=== PATIENT | male | born 1990 | race Caucasian/White ===

== ENCOUNTER 2019-09-23 11:34 | Outpatient (CLI) | payer OTHER, SELFPAY ==
[2019-09-24 13:55] LABS: COVID-19 RT-PCR UVMMC Result Negative (Negative)
== END 2019-09-23 11:54 ==
PROVIDERS: PCP Nurse Practitioner Family; Visit Provider Nurse Practitioner Family
DX: Z11.59 Encounter for screening for other viral diseases (principal)
CPT/HCPCS: U0003

== ENCOUNTER 2019-10-26 09:22 | Outpatient (CLI) | payer OTHER, SELFPAY ==
[2019-10-27 14:54] LABS: COVID-19 RT-PCR Result NEGATIVE (Negative)
== END 2019-10-26 09:42 ==
PROVIDERS: PCP Nurse Practitioner Family; Visit Provider Family Medicine
DX: Z11.59 Encounter for screening for other viral diseases (principal)
CPT/HCPCS: U0003

== ENCOUNTER 2020-03-09 15:02 | Outpatient (REF) | payer OTHER, SELFPAY ==
[2020-03-14 05:18] LABS: Patient Race White; SARS-CoV-2 RNA Undetected (Undetected); SARS-CoV-2 Specimen Source Nasal
== END 2020-03-09 15:22 ==
LOC: NCHCN 15:02
PROVIDERS: PCP Nurse Practitioner Family; Visit Provider Nurse Practitioner Family
DX: Z20.828 Contact with and (suspected) exposure to other viral communicable diseases (principal)
CPT/HCPCS: U0003

== ENCOUNTER 2020-05-24 14:24 | Outpatient (REF) | payer OTHER, SELFPAY ==
[2020-05-26 03:40] LABS: COVID-19 RT-PCR UVMMC Result Negative (Negative)
== END 2020-05-24 14:44 ==
LOC: NCHCN 14:24
PROVIDERS: PCP Nurse Practitioner Family; Visit Provider Nurse Practitioner Family
DX: Z20.828 Contact with and (suspected) exposure to other viral communicable diseases (principal)
CPT/HCPCS: U0003

== ENCOUNTER 2020-11-15 07:51 | Outpatient (REF) | payer SELFPAY ==
[2020-11-15 15:19] LABS: Anion Gap 7.2 mmol/L (3-11); BUN 12 mg/dL (7-18); CO2 28.8 mmol/L (21.0-32.0); CREATININE 0.8 mg/dL (0.70-1.30); Calcium 8.9 mg/dL (8.5-10.1); Chloride 107 mmol/L (98-107); Glucose 100 mg/dL (74-106); Potassium 4.5 mmol/L (3.5-5.1); Sodium 143 mmol/L (136-145)
[2020-11-18 16:28] LABS: Testosterone, Free 17.9 ng/dL (5.05-19.8); Testosterone, Total 406 ng/dL (240-950)
== END 2020-11-15 07:52 | disposition home or self-care (01) ==
LOC: NCHCN 07:51
PROVIDERS: PCP Nurse Practitioner Family; Visit Provider Family Medicine
DX: Z00.00 Encounter for general adult medical examination without abnormal findings (principal); N52.9 Male erectile dysfunction, unspecified
CPT/HCPCS: 80048; 84402; 84403; 85027; 84443

== ENCOUNTER 2021-07-28 13:33 | Outpatient (REF) | payer BC, SELFPAY ==
[2021-07-28 16:44] LABS: Bilirubin Negative (Negative); Blood Negative (Negative); Clarity Turbid (Clear); Glucose Negative (Negative); Ketones Negative (Negative); Leukocyte Esterase Negative (Negative); Nitrite Negative (Negative); Specific Gravity >= 1.030 (1.005-1.025); Urobilinogen 0.2 EU/dL (Up TO 0.2)
[2021-07-31 10:30] LABS: Hepatitis C Ab w Rflx HCV PCR Negative (Negative)
[2021-07-31 11:29] LABS: HIV-1/2 Ag & Ab Screen Negative (Negative)
== END 2021-07-28 13:34 | disposition home or self-care (01) ==
LOC: NCHCN 13:33
PROVIDERS: PCP Nurse Practitioner Family; Visit Provider Family Medicine
DX: N45.1 Epididymitis (principal); Z11.4 Encounter for screening for human immunodeficiency virus [HIV]; Z11.59 Encounter for screening for other viral diseases
CPT/HCPCS: 86803; 87389; 81003

== ENCOUNTER 2024-05-14 17:02 | Outpatient (REF) | payer BC, SELFPAY ==
--- NOTE | 2024-05-14 09:00 | SKI_PTH ---
PATIENT: Troy Schumacher LOC: [facility] U#:[id number] AGE/SX: 34/M ROOM: RE05/14/[address]: Gideon Pritchett : 1990 BED: DIS: 05/14/2024 SPEC #: [id number] RECD: 05/14/24 17:11 STATUS: NICOLAS REQ #: [id number] ANTONIO: 05/14/24 09:[address]: Gideon Pritchett DEPT: Surgical Specimen RECD BY: Nida Lamb ENTERED: 05/14/24 17:12 SP TYPE: SKI OTHR DR: Kristin Hahn Tissues: 1 - SKIN BIOPSY(SHAVE/PUNCH) Procedures: SKIN LEVEL 4 Comments: [id number]
--- OUTSIDE RECORDS SUMMARY | 2024-05-14 17:05 | XMS_ITS | Continuity of Care Document ---
Author Organization [facility] Address [address] [place] [phone] Care Team Providers Care Telesales Specialist Name Role Phone FRANKO BROWN Primary Care Physician [phone] Encounter [facility] FIN NBR [id number] Date(s): 08/27/22 - 08/27/[address] [id number] [place] Encounter Diagnosis Low back pain(Discharge Diagnosis) - 08/27/22 Discharge Disposition: Home or Self Care Attending Physician: Morro Ma DO Admitting Physician: Morro Ma DO Allergies, Adverse Reactions, Alerts No Known Allergies Functional Status 08/27/22 Other exposure to Infectious Disease Non e Medications !-Robaxin-750 oral tablet 750 mg = 1 tab, Oral, TID, # 21 tab, 0 Refill(s), Pharmacy: [facility], 183, cm, 08/27/22 10:43:00 EDT, Height/Length Dosing, 111.13, kg, 08/27/22 10:43:00 EDT, Weight Dosing Start Date: 08/27/22 Stop Date: 09/03/22 Status: Ordered predniSONE 10 mg oral tablet See Instructions, 4 tabs x3 days, 3 tabs x3 days, 2 tabs x3 days, 1 tab x3 days then stop, # 30 tab, 0 Refill(s), 09/06/22 12:01:00 EDT, Pharmacy: [facility], 183, cm, 08/27/22 10:43:00 EDT, Height/Length Dosing, 111.13, kg, 08/27/22 10:4... Start Date: 08/27/22 Stop Date: 09/06/22 Status: Ordered sildenafil 50 mg oral tablet TAKE 1/2 TO 1 TABLET BY MOUTH PRIOR TO INTERCOURSE NEEDED ONCE DAILY Start Date: 08/27/22 Status: Ordered Mental Status 08/27/22 Eye Opening Response Tino Spontaneous ly Best Verbal Response Tino Oriented Best Motor Response [place] Obeys yuean ds [place] Coma Score 15 Results Radiology Reports * Exam Date Time Procedure Performing Provider Status 08/27/22 11:07 AM XR Spine Lumbosacral 2 or 3 Views Rosetta Null; Christoph (Verified) Notes: (XR Spine Lumbosacral 2 or 3 Views) Reason For Exam: low back pain, left sided XR Spine Lumbosacral 2 or 3 Views EXAM DESCRIPTION: XR Spine Lumbosacral 2 or 3 Views 08/27/2022 INDICATION: LOW BACK PAIN, LEFT SIDED COMPARISON: None IMPRESSION: No acute fracture or subluxation. No scoliosis Mild spondylotic changes at L1-2 with intervertebral disc space narrowing and mild endplate osteophyte formation. Remaining levels demonstrate no findings to suggest significant degenerative disc disease SI joints appear symmetric. JOB #: [id number] Final Signed by: Artie Tamayo MD Signed (Electronic Signature): 08/27/2022 3:07 pm Vital Signs Most recent to oldest [Reference Range]: 1 Temperature Temporal Artery [36-38 Deg C ] 36.7 Deg C (08/27/22 10:15 AM) Peripheral Pulse Rate [60-100 bpm] 65 bp m (08/27/22 10:15 AM) Respiratory Rate [12-24 br/min] 16 br/mi n (08/27/22 10:15 AM) Blood Pressure [90-140/60-90 mmHg] 157/8 5mmHg *HI* (08/27/22 10:15 AM) Weight Dosing 111.13 kg (08/27/22 10:43 AM) Weight Estimated 111.13 kg (08/27/22 10:15 AM) Height/Length Dosing 183.000 cm (08/27/22 10:43 AM) Height/Length Estimated 183.000 cm (08/27/22 10:15 AM) Social History Social History Type Response Tobacco Never tobacco user T obacco Use:. Sex Hospital Discharge Instructions Patient Education 08/27/2022 11:02:40 Acute Back Pain, Adult Acute Back Pain, Adult Acute back pain is sudden and usually short-lived. It is often caused by an injury to the muscles and tissues in the back. The injury may result from: ??? A muscle, tendon, or ligament getting overstretched or torn. Ligaments are tissues that connectbones to each other. Lifting something improperly can cause a back strain. ??? Wear and tear (degeneration) of the spinal disks. Spinal disks are circular tissue that providecushioning between the bones of the spine (vertebrae). ??? Twisting motions, such as while playing sports or doing yard work. ??? A hit to the back. ??? Arthritis. You may have a physical exam, lab tests, and imaging tests to find the cause of your pain. Acute back pain usually goes away with rest and home care. Follow these instructions at home: Managing pain, stiffness, and swelling ??? Take zwcw-ggl-rgwnelu and prescription medicines only as told by your health care provider. Treatment may include medicines for pain and inflammation that are taken by mouth or applied to the skin, or muscle relaxants. ??? Your health care provider may recommend applying ice during the first 24???48 hours after your pain starts. To do this: ??? Put ice in a plastic bag. ??? Place a towel between your skin and the bag. ??? Leave the ice on for 20 minutes, 2???3 times a day. ??? Remove the ice if your skin turns bright red. This is very important. If you cannot feel pain, heat, or cold, you have a greater risk of damage to the area. ??? If directed, apply heat to the affected area as often as told by your health care provider. Usethe heat source that your health care provider recommends, such as a moist heat pack or a heating pad. ??? Place a towel between your skin and the heat source. ??? Leave the heat on for 20???30 minutes. ??? Remove the heat if your skin turns bright red. This is especially important if you are unable to feel pain, heat, or cold. You have a greater risk of getting burned. Activity ??? Do not stay in bed. Staying in bed for more than 1???2 days can delay your recovery. ??? Sit up and stand up straight. Avoid leaning forward when you sit or hunching over when you stand. ??? If you work at a desk, sit close to it so you do not need to lean over. Keep your chin tucked in. Keep your neck drawn back, and keep your elbows bent at a 90-degree angle (right angle). ??? Sit high and close to the steering wheel when you drive. Add lower back (lumbar) support to your car seat, if needed. ??? Take short walks on even surfaces as soon as you are able. Try to increase the length of time you walk each day. ??? Do not sit, drive, or stockroom inventory clerk one place for more than 30 minutes at a time. Sitting or standing for long periods of time can put stress on your back. ??? Do not drive or use heavy machinery while taking prescription pain medicine. ??? Use proper lifting techniques. When you bend and lift, use positions that put less stress on your back: ??? Bend your knees. ??? Keep the load close to your body. ??? Avoid twisting. ??? Exercise regularly as told by your health care provider. Exercising helps your back heal fasterand helps prevent back injuries by keeping muscles strong and flexible. ??? Work with a physical therapist to make a safe exercise program, as recommended by your health care provider. Do any exercises as told by your physical therapist. Lifestyle ??? Maintain a healthy weight. Extra weight puts stress on your back and makes it difficult to havegood posture. ??? Avoid activities or situations that make you feel anxious or stressed. Stress and anxiety increase muscle tension and can make back pain worse. Learn ways to manage anxiety and stress, such as through exercise. General instructions ??? Sleep on a firm mattress in a comfortable position. Try lying on your side with your knees slightly bent. If you lie on your back, put a pillow under your knees. ??? Keep your head and neck in a straight line with your spine (neutral position) when using electronic equipment like smartphones or pads. To do this: ??? Raise your smartphone or pad to look at it instead of bending your head or neck to look down. ??? Put the smartphone or pad at the level of your face while looking at the screen. ??? Follow your treatment plan as told by your health care provider. This may include: ??? Cognitive or behavioral therapy. ??? Acupuncture or massage therapy. ??? Meditation or yoga. Contact a health care provider if: ??? You have pain that is not relieved with rest or medicine. ??? You have increasing pain going down into your legs or buttocks. ??? Your pain does not improve after 2 weeks. ??? You have pain at night. ??? You lose weight without trying. ??? You have a fever or chills. ??? You develop nausea or vomiting. ??? You develop abdominal pain. Get help right away if: ??? You develop new bowel or bladder control problems. ??? You have unusual weakness or numbness in your arms or legs. ??? You feel faint. These symptoms may represent a serious problem that is an emergency. Do not wait to see if the symptoms will go away. Get medical help right away. Call your local emergency services (911 in the [place] Do not drive yourself to the hospital. Summary ??? Acute back pain is sudden and usually short-lived. ??? Use proper lifting techniques. When you bend and lift, use positions that put less stress on your back. ??? Take unaz-jup-dzugdit and prescription medicines only as told by your health care provider, andapply heat or ice as told. This information is not intended to replace advice given to you by your health care provider. Make sure you discuss any questions you have with your health care provider. Document Revised: 08/04/2021 Document Reviewed: 08/04/2021 [employer] Patient Education ?? 2021 [employer]. Follow Up Care 08/27/2022 10:15:50 With:Harry Mercado MD Address: [address] [place] [phone] When:1 week Comments:Contact their office if there is any question or concern or need for follow-up With:Follow-up with your primary care Address: When:1 week Comments:Follow-up with your primary care as needed, they will be able to reevaluate if necessaryReturn to ED if concerns With:Tylenol/Motrin for Pain/Fever Relief Address: When: Unknown Comments:Utilize Motrin 400-600 mg??every 6-8 hours as needed discomfort, Tylenol 1000 mg every 8 hours??as needed Discharge instructions * Event Display: Discharge Instructions Physician Emergency department Note * GANESH Huitron: PERFORM Event Display: ED Note Physician Authored Date: [id number] MAREK REESE :1990 Age:32 years Sex:Male Visit Date:08/27/2022 Primary Care Physician: FRANKO BROWN Basic Information Time Seen: GANESH Huitron / 08/27/2022 10:32 Chief Complaint Pt c/o 11/03 lower left back pain that radiates down left leg after lifting something at work yesterday. + BLE [facility] History Of Present Illness: Patient is a 32-year-old male presents emergency department having had??yesterday been moving??a unit into the back of his truck when he felt his back??go. ??He had immediate pain??in his left-sided low back with radiation??and has not had any resolution since. ??He was hoping that today things will be better however??after night of sleep he had significantly worse pain??and this brings him to the emergency department. ??He is not having any issues with bladder or bowels??has been taken Tylenoland Motrin with some relief??presents??for evaluation. ??Patient does have a history of??occasional low back discomfort which last typically 24 to 48 hours. Review of Systems: See HPI Physical Exam Vitals & Measurements T:??36.7?C ??(Temporal Artery)?? HR:??65??(Peripheral)?? RR:??16?? BP:??157/85?? SpO2:??98%?? HT:??183.000??cm?? WT:??111.13??kg??(Estimated)?? O2 Therapy:??Room air?? Patient alert oriented age-appropriate well-nourished nontoxic Normocephalic atraumatic Neck supple nontender EOM intact, PERRLA, sclera nonicteric Clear to auscultation bilaterally Regular rate and rhythm no murmurs Straight leg brace??positive bilaterally with right-sided straight leg raise causing pain on the left, negative pain with distraction Sensation is equal bilateral Neuro exam intact without focal deficit Appropriate mood and affect Medical Decision Making: Patient is here and is in significant discomfort??his x-ray reveals no acute findings I believe this to be an acute on chronic back pain??with probable disc??protrusion.?? I have discussed with him all factors and he agrees with discharge as below Procedure No Qualifying Data Assessment/Plan 1.??Low back pain??M54.50 Patient will be treated with medications as below. ??I discussed with him that he should follow-up with spine surgery??and if he has any new or worsening symptoms he is to follow with his primary care.?? I do not see any acute process here that would require immediate intervention and he understands this. Patient will be treated as below and agrees with discharge plan Orders: !-Robaxin-750 oral tablet, 750 mg = 1 tab, Oral, TID, # 21 tab, 0 Refill(s), Pharmacy: [facility], 183, cm, 08/27/22 10:43:00 EDT, Height/Length Dosing, 111.13, kg, 08/27/22 10:43:00 EDT,Weight Dosing predniSONE 10 mg oral tablet, See Instructions, 4 tabs x3 days, 3 tabs x3 days, 2 tabs x3 days, 1 tab x3 days then stop, # 30 tab, 0 Refill(s), 09/06/22 12:01:00 EDT, Pharmacy: [facility], 183, cm, 08/27/22 10:43:00 EDT, Height/Length Dosing, 111.13, kg, 08/27/22 10:4... Patient Education Acute Back Pain, Adult Follow Up With When Contact Information Harry Mercado MD Within [address] [place] [phone] Additional Instructions: Contact their office if there is any question or concern or need for follow-up Follow-up with your primary care Within 1 week Additional Instructions: Follow-up with your primary care as needed, they will be able to reevaluate if necessary Return to ED if concerns Tylenol/Motrin for Pain/Fever Relief Additional Instructions: Utilize Motrin 400-600 mg??every 6-8 hours as needed discomfort, Tylenol 1000 mg every 8 hours??as needed Medication Reconciliation New Prescription methocarbamol (!-Robaxin-750 oral tablet)1 tab Oral (given by mouth) 3 times a day for 7 Days. Refills: 0. ?? predniSONE (predniSONE 10 mg oral tablet)4 tabs x3 days, 3 tabs x3 days, 2 tabs x3 days, 1 tab x3 days then stop. Refills: 0. ?? Unchanged sildenafil (sildenafil 50 mg oral tablet)TAKE 1/2 TO 1 TABLET BY MOUTH PRIOR TO INTERCOURSE NEEDED ONCE DAILY. Problem List/Past Medical History Ongoing No qualifying data Historical No qualifying data Medication Administration Given predniSONE, 60 mg, Oral Robaxin, 1000 mg, Oral Allergies No Known Allergies Social History Electronic Cigarette/Vaping Electronic Cigarette Use: Never. Substance Use Current, Marijuana Tobacco Never tobacco user Tobacco Use:. Diagnostic Results XR Spine Lumbosacral 2 or 3 Views 08/27/2022 15:09 EDT XR Spine Lumbosacral 2 or 3 Views ?? 08/27/22 15:07:13 EXAM DESCRIPTION: XR Spine Lumbosacral 2 or 3 Views ?? 08/27/2022 ?? INDICATION: LOW BACK PAIN, LEFT SIDED ?? COMPARISON: None ?? IMPRESSION: No acute fracture or subluxation. No scoliosis ?? Mild spondylotic changes at L1-2 with intervertebral disc space narrowing and mild endplate osteophyte formation. Remaining levels demonstrate no findings to suggest significant degenerative disc disease ?? SI joints appear symmetric. ? JOB #: [id number] GANESH Huitron Emergency department Discharge instructions * GANESH Huitron: PERFORM Event Display: ED Discharge Information Authored Date: [id number] MAREK REESE :1990 Age:32 years Sex:Male Visit Date:08/27/2022 Primary Care Physician: FRANKO BROWN Discharge Instructions We would like to thank you for allowing us to assist you with your healthcare needs. The following includes patient education materials and information regarding your injury/illness. Diagnosis from Today's Visit Low back pain Discharge Vitals Temperature??(Temporal Artery) 98.1 ??F (36.7 ??C) Heart Rate??(Peripheral) 65 Respiratory Rate?? 16 Blood Pressure?? 157/85?? Height?? 72.05 in (183.000 cm) Weight??(Estimated) 245.04 lb (111.13 kg) Allergies No Known Allergies What to Do Next You Need to Schedule the Following Appointments Follow Up with??Harry Mercado MD When:??Within 1 week Why: Contact their office if there is any question or concern or need for follow-up Where: [address] [place] [phone] Follow Up with??Follow-up with your primary care When:??Within 1 week Why: Follow-up with your primary care as needed, they will be able to reevaluate if necessary Return to ED if concerns Follow Up with??Tylenol/Motrin for Pain/Fever Relief Why: Utilize Motrin 400-600 mg??every 6-8 hours as needed discomfort, Tylenol 1000 mg every 8 hours??as needed You were treated today on an emergency basis; it may be mak to contact your primary care provider to notify them of your visit today. You may have been referred to your regular doctor or a specialist, please follow up as instructed. If your condition worsens or you can't get in to see the doctor, contact the Emergency Department. Medications What How Much When Instructions Next Dose New methocarbamol (!-Robaxin-750 oral tablet) 1 tab Oral (given by mouth) 3 times a day Duration: [address] [facility] New predniSONE (predniSONE 10 mg oral tablet) See instructions 4 tabs x3 days, 3 tabs x3 days, 2 tabs x3 days, ??1 tab x3 days then stop ?? Pickup at [facility] Unchanged sildenafil (sildenafil 50 mg oral tablet) TAKE 1/ 2 TO 1 TABLET BY MOUTH PRIOR TO INTERCOURSE NEEDED ONCE DAILY ?? Pharmacy Information [facility]: [address], [place] [id number] [phone] Education Materials Acute Back Pain, Adult Acute back pain is sudden and usually short-lived. It is often caused by an injury to the muscles and tissues in the back. The injury may result from: ? A muscle, tendon, or ligament getting overstretched or torn. Ligaments are tissues that connect bones to each other. Lifting something improperly can cause a back strain. ? Wear and tear (degeneration) of the spinal disks. Spinal disks are circular tissue that provide cushioning between the bones of the spine (vertebrae). ? Twisting motions, such as while playing sports or doing yard work. ? A hit to the back. ? Arthritis. You may have a physical exam, lab tests, and imaging tests to find the cause of your pain. Acute back pain usually goes away with rest and home care. Follow these instructions at home: Managing pain, stiffness, and swelling ? Take pnah-xbh-olqlvkq and prescription medicines only as told by your health care provider. Treatment may include medicines for pain and inflammation that are taken by mouth or applied to the skin, or muscle relaxants. ? Your health care provider may recommend applying ice during the first 24???48 hours after your painstarts. To do this: ? Put ice in a plastic bag. ? Place a towel between your skin and the bag. ? Leave the ice on for 20 minutes, 2???3 times a day. ? Remove the ice if your skin turns bright red. This is very important. If you cannot feel pain, heat, or cold, you have a greater risk of damage to the area. ? If directed, apply heat to the affected area as often as told by your health care provider. Use theheat source that your health care provider recommends, such as a moist heat pack or a heating pad. ? Place a towel between your skin and the heat source. ? Leave the heat on for 20???30 minutes. ? Remove the heat if your skin turns bright red. This is especially important if you are unable to feel pain, heat, or cold. You have a greater risk of getting burned. Activity ? Do not stay in bed. Staying in bed for more than 1???2 days can delay your recovery. ? Sit up and stand up straight. Avoid leaning forward when you sit or hunching over when you stand. ? If you work at a desk, sit close to it so you do not need to lean over. Keep your chin tucked in. Keep your neck drawn back, and keep your elbows bent at a 90-degree angle (right angle). ? Sit high and close to the steering wheel when you drive. Add lower back (lumbar) support to your car seat, if needed. ? Take short walks on even surfaces as soon as you are able. Try to increase the length of time you walk each day. ? Do not sit, drive, or stockroom inventory clerk one place for more than 30 minutes at a time. Sitting or standing for long periods of time can put stress on your back. ? Do not drive or use heavy machinery while taking prescription pain medicine. ? Use proper lifting techniques. When you bend and lift, use positions that put less stress on your back: ? Bend your knees. ? Keep the load close to your body. ? Avoid twisting. ? Exercise regularly as told by your health care provider. Exercising helps your back heal faster andhelps prevent back injuries by keeping muscles strong and flexible. ? Work with a physical therapist to make a safe exercise program, as recommended by your health care provider. Do any exercises as told by your physical therapist. Lifestyle ? Maintain a healthy weight. Extra weight puts stress on your back and makes it difficult to have good posture. ? Avoid activities or situations that make you feel anxious or stressed. Stress and anxiety increase muscle tension and can make back pain worse. Learn ways to manage anxiety and stress, such as through exercise. General instructions ? Sleep on a firm mattress in a comfortable position. Try lying on your side with your knees slightlybent. If you lie on your back, put a pillow under your knees. ? Keep your head and neck in a straight line with your spine (neutral position) when using electronicequipment like smartphones or pads. To do this: ? Raise your smartphone or pad to look at it instead of bending your head or neck to look down. ? Put the smartphone or pad at the level of your face while looking at the screen. ? Follow your treatment plan as told by your health care provider. This may include: ? Cognitive or behavioral therapy. ? Acupuncture or massage therapy. ? Meditation or yoga. Contact a health care provider if: ? You have pain that is not relieved with rest or medicine. ? You have increasing pain going down into your legs or buttocks. ? Your pain does not improve after 2 weeks. ? You have pain at night. ? You lose weight without trying. ? You have a fever or chills. ? You develop nausea or vomiting. ? You develop abdominal pain. Get help right away if: ? You develop new bowel or bladder control problems. ? You have unusual weakness or numbness in your arms or legs. ? You feel faint. These symptoms may represent a serious problem that is an emergency. Do not wait to see if the symptoms will go away. Get medical help right away. Call your local emergency services (911 in the [place] Do not drive yourself to the hospital. Summary ? Acute back pain is sudden and usually short-lived. ? Use proper lifting techniques. When you bend and lift, use positions that put less stress on your back. ? Take bnmb-cmp-yxqiwcz and prescription medicines only as told by your health care provider, and apply heat or ice as told. This information is not intended to replace advice given to you by your health care provider. Make sure you discuss any questions you have with your health care provider. Document Revised: 08/04/2021 Document Reviewed: 08/04/2021 [employer] Patient Education ?? 2021 [employer] Tests Performed Medications and Immunizations Administered Given predniSONE, 60 mg, Oral Robaxin, 1000 mg, Oral Patient/Internet Marketing Executive Signature Patient Name:MAREK REESE I have received this information and my questions have been answered. Patient/Internet Marketing Executive Name: Patient/Internet Marketing Executive Signature: Relationship to Patient: Witness Name/Signature: Date: Electronically Signed on: 08/27/2022 12:03 EDTSigned by:AB XR Spine Lumbar and Sacrum GE 2 Views * Artie Tamayo MD: VERIFY, VERIFY Event Display: Report EXAM DESCRIPTION: XR Spine Lumbosacral 2 or 3 Views 08/27/2022 INDICATION: LOW BACK PAIN, LEFT SIDED COMPARISON: None IMPRESSION: No acute fracture or subluxation. No scoliosis Mild spondylotic changes at L1-2 with intervertebral disc space narrowing and mild endplate osteophyte formation. Remaining levels demonstrate no findings to suggest significant degenerative disc disease SI joints appear symmetric. JOB #: [id number] Final Signed by: Artie Tamayo MD Signed (Electronic Signature): 08/27/2022 3:07 pm Patient Care team information Care Team Personnel Name: FRANKO BROWN Position: No Access Member Role: Primary Care Physician Address: Address: [address] [place] [phone] Name: GANESH Huitron Position: Physician Member Role: Physician Return Clerk Address: Address: [address] [place] [phone] [place] Name: Amanda De Los Santos Position: Nurse Member Role: Registered Nurse Care Team Related Persons Name: MELANIE GARY
--- OUTSIDE RECORDS SUMMARY | 2024-05-14 17:05 | XMS_ITS | Clinical Summary ---
Author Organization [facility] Address [address] [place] [address] Care Team Providers Care Ore Tester Name Role Phone Nannette Jeffers Primary Care Provider [phone] Allergies No known active allergies Medications sildenafil citrate (VIAGRA) 25 mg tablet Take 1 Tablet by mouth every evening. Active ergocalciferol, vitamin D2, (VITAMIN D ORAL) Take by mouth if needed. Winter months Active calcium carbonate (TUMS ORAL) Take by mouth if needed. Active Active Problems Patient Care Coordination No te Formatting of this note migh t be different from the original. Patient has given permission for [facility] to verbally discuss the following information with Sharon Schumacher who has the following relationship to the patient: Spouse/Partner: Scheduling/Appt/Billing/Payment Information (does not include clinical information unless specifically indicated with separate option) Medical Information including symptoms, diagnosis, medications, test results and treatment plan (does not include Mental Health unless specifically indicated with separate option) Permission remains in effect until the patient elects to revoke it. 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) 05/04/2024 10:46 EST - 05/04/2024 23:59 EST Hospital Encounter [facility] [address] [id number] Lab, E&I Azoospermia Discharge Disposition: Home or Self Care 02/28/2024 10:00 EDT Post-op Visit [facility]rology [address] [address] Gil Bright MD Azoospermia (Primary Dx) 02/28/2024 Travel from Last 3 Months Surgical History Surgery Date Site/Laterality Comments RETINAL DETACHMENT SURGERY Left TONSILLECTOMY 2000 and adnoids VASECTOMY TESTICLE SURGERY 02/10/2024 Bilateral left vasovasostomy, right vasoepididymostomy Medical History Medical History Date Comments Sleep apnea Noted 01/31/2024 : hasnt used CPAP in months Claustrophobia Noted 01/31/2024 : tight spaces History of general anesthesia No danielle 01/31/2024: no complications Exercise involving walking Noted 01/31/2024: walking, physical job, can climb 1 FOS w/ no SOB GERD (gastroesophageal reflux disease) Noted 01/31/2024: ocassionally, PRN TUMS, can lay flat Head trauma Noted 01/31/2024 : as a child w/ LOC Back pain Noted 01/31/2024 : ocassionally Scrotal pain Noted 01/31/2024 : Wears glasses Noted 01/31/2024 : and contacts Family History Medical History Relation Comments Arthritis Father Diabetes Father High Blood Pressure Father High Cholesterol Father Vision Loss Father Relation Status Comments Father Social History Tobacco Use Types Packs/Day Years Used Date Smoking Tobacco: Never Smokeless Tobacco: Never Tobacco Cessation:Counseling Given: Not Answered Alcohol Use Standard Drinks/Week Comments Not Currently 0 (1 standard drink = 0.6 oz pur e alcohol) Sex and Gender Information Value Date Recorded Sex Assigned at Not on file Legal Sex Male 18:02 EST Gender Identity Male 07/23/2023 15:53 EST Sexual Orientation Not on file Obstetrics History Last Filed Vital Signs Vital Sign Reading Time Taken Comments Blood Pressure 131/81 02/28/2024 0947 EDT Pulse 62 02/28/2024 0947 EDT Temperature 36.1 ??C (97 ??F) 02/28/2024 0947 EDT Respiratory Rate 14 02/10/2024 1930 EDT Oxygen Saturation 96% 02/28/2024 0947 EDT Inhaled Oxygen Concentration - - Weight 111.1 kg (245 lb) 02/08/2024 0934 EDT Height 182.9 cm (6') 02/08/2024 0934 EDT Body Mass Index 33.23 02/08/2024 0934 EDT Plan of Treatment Upcoming Encounters Date Type Department Care Team (Late st Contact Info) Description 08/17/2024 11:00 EDT Appointment [facility] [address] [id number] Lab, E&I 08/17/2024 13:00 EDT Office Visit [facility] Urology [address] [phone] Gil Bright MD [address] [place] [address], [address] [place] [address] Health Maintenance Due Date Last Done Comments Hepatitis B Vaccine (1 of 3 - 19+ 3-dose series) 04/29 COVID-19 Vaccine ( season) 2024 Hepatitis C Screen Completed 07/28/2021 Procedures Procedure Name Priority Date/Time Associated Diagnosis Comments POCT SEMEN ANALYSIS, COMPLETE Routine 05/04/2024 10:50 EST Azoospermia HEPATITIS C AB W REFLEX TO HCV RNA BY PCR Routine 07/28/2021 11:40 EST from Last 3 Months or Most Recently Relevant to Health Maintenance Results * (ABNORMAL) POCT SEMEN ANALYSIS, COMPLETE (05/04/2024 10:50 EST) Partner Sharon Schumacher [facility] POINT OF CARE Referring Provider Kaila [facility] POINT OF CARE Outside Request [facility] POINT OF CARE Specimen Collected, POC In Clinic (Normal) [facility] POINT OF CARE Length of Sexual Abstinence, POC 3 Days [facility] POINT OF CARE Any Portion of Specimen Lost During Collection No No [facility] POIN T OF CARE Time Received 1,103 [facility] POINT OF CARE Received by SLO [facility] PO INT OF CARE Examined at 1,125 [facility] PO INT OF CARE Viscosity Normal Norm/Viscou s [facility] POINT OF CARE pH 7.9 7.2 - 9.0 [facility] POIN T OF CARE Specimen Volume 4.3 >=1.5 ml [facility] POINT OF CARE Sperm Count 0(L) >=15 M/ml [facility] PO INT OF CARE Total Sperm Count 0 >=39 Million [facility] POINT OF CARE Motility,POC 0 >=40 % [facility] P OINT OF CARE Motility, Speed of Progression(grade d),POC [facility] POINT OF CARE Total Motile Sperm 0 Million [facility] POINT OF CARE Sperm Clumping (non-motile) [facility] POINT OF CARE Agglutination (motile sperm) [facility] POINT OF CARE Normal Forms [facility] P OINT OF CARE Round Cells [facility] PO INT OF CARE PMN'S (Leukocytes) [facility] POINT OF CARE Comments, POC SEMEN [facility] POINT OF CARE Comment:No sperm were seen o n 3 slides of neat sample. Sample was concentrated to 0.5mL. No sperm was seen in concentrated sample. Email sent to Dr. Bright and coreroom foundry laborer. Electronic Signature Arnaud Nguyen, PhD, [facility] POINT OF CARE Semen PENILE STRUCTURE / Unknown 05/04/2024 10:50 EST Gil Bright MD POINT OF CARE TEST ORDERA BLES Final Result [facility] POINT OF CARE * HEPATITIS C AB W REFLEX TO HCV RNA BY PCR (07/28/2021 11:40 EST) Hep C Antibody Negative Negative 07/31/2021 10:25 EST [facility] Blood VENOUS BLOOD / Unknown 07/28/2021 11:40 EST 07/30/2021 15:59 EST us Provider Outr Resulting Lab CHEMISTRY & BLOOD GA S ORDERABLES Final Result [facility] [address] [place], [place] [id number] from Last 3 Months or Most Recently Relevant to Health Maintenance Insurance ANTHEM ANTHEM ANTHEM ANTHEM ANTHEM Advance Directives For more information, please contact: [phone] * Full Code (Latest Code Status on File) Date Activated Date Inactivated Comments 02/10/2024 9:04 02/10/2024 22:11 Question Answer Comments When the patient has NO PULSE: Full Code / CPR Who Made the Decision? Default/Not Discussed Care Teams Ore Tester Relationship Specialty Start Date End Date Nannette Jeffers FNP [address] [place] [address] PCP - General Family Medicine - Primary Care 02/12/24
--- OUTSIDE RECORDS SUMMARY | 2024-05-14 17:06 | XMS_ITS | Referral Summary ---
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 Patient has given permission for [facility] to verbally discuss the following information with Sharon Endy who has the following relationship to the patient: Spouse/Partner: Scheduling/Appt/Billing/Payment Information (does not include clinical information unless specifically indicated with separate option) Medical Information including symptoms, diagnosis, medications, test results and treatment plan (does not include Mental Health unless specifically indicated with separate option) Permission remains in effect until the patient elects to revoke it. Problem Noted Date Diagnosed Date Scrotal pain 10/22/2023 Social History Tobacco Use Types Packs/Day Years [...] 15:53 EST Sexual Orientation Not on file Last Filed Vital Signs Vital Sign Reading [...] Body Mass Index 33.23 02/08/2024 0934 EDT Functional Status * Because of a physical, mental, or emotional condition, does this person have difficulty doing errands alone such as visiting a doctor's office or shopping? Answer Date of Assessment Author No 02/28/2024 9:49 EDT Mental Status * Because of a physical, mental, or emotional condition, does this person have serious difficulty concentrating, remembering, or making decisions? Answer Entry Date Author No 02/28/2024 9:49 EDT Plan of Treatment Upcoming Encounters Date Type Department Care Team (Late st Contact Info) Description 08/17/2024 11:00 EDT Appointment [facility] - [address] [address] Lab, E&I 08/17/2024 13:00 EDT Office Visit [facility] - [facility] [address] [place], [place] [phone] Gil Bright MD [address] [facility], [address] [place] [phone] Procedures Procedure Name Priority Date/Time Associated Diagnosis [...] CARE Specimen Collected, POC In Clinic (Normal) [facility] POINT OF CARE Length of Sexual Abstinence, POC 3 Days [facility] POINT OF CARE Any Portion of Specimen Lost During Collection No No [facility] POIN T OF CARE Time Received 1,103 [facility] POINT OF CARE Received by SLO [facility] PO INT OF CARE Examined at 1,125 [facility] PO INT OF CARE Viscosity Normal Norm/Viscou s [facility] POINT OF CARE pH 7.9 7.2 - 9.0 [facility] POIN T OF CARE Specimen Volume 4.3 >=1.5 ml [facility] POINT OF CARE Sperm Count 0(L) >=15 M/ml [facility] PO INT OF CARE Total Sperm Count 0 >=39 Million [facility] POINT OF CARE Motility,POC 0 >=40 % [facility] P OINT OF CARE Motility, Speed of Progression(grade d),POC [facility] POINT OF CARE Total Motile Sperm 0 Million [facility] POINT OF CARE Sperm Clumping (non-motile) [facility] [...] sample. Email sent to Dr. Bright and cath laboratory technician. Electronic Signature Arnaud Nguyen, PhD, [facility] POINT OF CARE Semen PENILE STRUCTURE / Unknown 05/04/2024 10:50 EST us Gil Bright MD POINT OF CARE TEST ORDERA BLES Final Result [facility] POINT OF CARE * HEPATITIS C AB W REFLEX TO HCV RNA BY PCR (07/28/2021 11:40 EST) Hep C Antibody Negative Negative 07/31/2021 10:25 EST [facility] Blood VENOUS BLOOD / Unknown 07/28/2021 11:40 EST 07/30/2021 15:59 EST us Provider Outr Resulting Lab CHEMISTRY & BLOOD GA S ORDERABLES Final Result Performing Organization Address City/[facility]/ZIP Co de Phone Number [facility] [address] [place] [address] from Last 3 Months or Most Recently Relevant to Health Maintenance Insurance ANTH ANTHEM ANTHEM ANTHEM ANTHEM Advance Directives For more information, please contact: [phone] * Full Code (Latest Code Status on File) Date Activated Date Inactivated Comments 02/10/2024 9:04 02/10/2024 22:11 Question Answer Comments When the patient has NO PULSE: Full Code / CPR Who Made the Decision? Default/Not Discussed Care Teams Supervisor Body Assembly Relationship Specialty Start Date End Date Nannette Jeffers FNP [address] [place] [address] PCP - General Family Medicine - Primary Care 02/12/24
--- OUTSIDE RECORDS SUMMARY | 2024-05-14 17:06 | XMS_ITS | Encounter Summary ---
[place] [address] Care Team Providers Care Applications Engineer Manufacturing Name Role Phone Svetlana Buckley MD Primary Care Provider [phone] Reason for Visit * Reason Comments Post Op REPAIR RETINAL DETAC HMENT W/ VITRECTOMY, SCLERAL BUCKLE; AIR,GAS,OIL,LASER,CRYO OS 01/29/2020 Encounter Details Date Type Department Care Team (Late st Contact Info) Description 03/17/2020 3:00 PM EDT [place] [address] Carlos Andrew MD Left retinal detachment s/p [id number] 01/29/20; Left retinal detachment Social History Tobacco Use Types Packs/Day Years Used Date Smoking Tobacco: Never Smokeless Tobacco: Never Alcohol Use Standard Drinks/Week Comments Yes 0 (1 standard drink = 0.6 oz pur e alcohol) occasionally Sex and Gender Information Value Date Recorded Sex Assigned at Not on file Gender Identity Not on file Sexual Orientation Not on file documented as of this encounter Patient Instructions * Patient Instructions* Carlos Andrew MD - 03/17/2020 3:00 PM EDT The doctor recommended laser retinopexy. What should I expect? Before the Laser The doctor will use topical anesthetics with drops and/or injections to numb up the eye. During the laser The laser takes 5-15 minutes. The patients frequently feel some discomfort that is generally well tolerated. If you feel that you cannot tolerate it please tell the doctor and the settings will be adjusted. If you still feel pain the treatment can be stopped. A small minority of the patients feel light-headed during the laser. If you feel so please let usknow and we will stop it. If you're diabetic please make sure you eat at your usual times prior to the laser. Immediately after the laser The vision is very blurry for a few minutes but goes back to baseline. Some patients feel foreign body sensation and mild pain for ~24 hours and in these cases over the counter artificial tears are recommended. Over over the counter pain medications (e.g. Tylenol or ibuprophen) might also help For several days after the laser The eye might look red and swollen. Use of artificial tears sometimes helps. Activity restrictions: A) If the laser was done for the treatment of a retinal tear/detachment please avoid any high impact activities such as long distance running, heavy weight lifting (i.e. More than 20lbs), contact sports (e.g. boxing, basketball etc) for 2 weeks. It's ok however to do most of your basic daily activities including sports with low impact (swimming, bike riding, walking on treadmill etc) B) These limitations do not apply to those who had Panretinal photocoagulation laser for diabeticretinopathy. These patients can continue their previous daily activities documented in this encounter Progress Notes * Carlos Andrew MD - 03/17/2020 3:00 PM EDT ASSESSMENT/PLAN: 1. Left retinal detachment s/p [id number] 01/29/20 2. Left retinal detachment Visual Acuity Visual Acuity (Snellen - Linear) Right Left Dist cc 20/20 20/25 -1 Near cc 20/20 20/25 Correction: Contacts 1. H/o RD OS Doing well. Retina is remains attached. VA is excellent. Discussed the slow visual recovery after this procedure 2. Lattice degeneration with holes OD Strongly recommended LR given the h/o RD OS. The patient will think about it and call us once he decides Follow up for LR OD MSO only once the patient calls us documented in this encounter Plan of Treatment Not on file documented as of this encounter Procedures Procedure Name Priority Date/Time Associated Diagnosis Comments OCT RETINA - OU - BOTH EYES Routine 03/17/2020 4:14 PM EDT Left retinal detachment documented in this encounter Results * OCT Retina - OU - Both Eyes (03/17/2020 4:14 PM EDT) Anatomical Region Laterality Modality Other Narrative 03/17/2020 4:14 PM EDT Right Eye Quality was good. Scan locations included subfoveal. Progression has been stable. Findings include normal observations, normal foveal contour. Left Eye Quality was good. Scan locations included subfoveal. Progression has been stable. Findings include normal foveal contour, normal observations. Carlos Andrew MD OPHTHALMOLOGY SERVICES ORDERABLES documented in this encounter Visit Diagnoses Diagnosis Left retinal detachment s/p [id number] 01/29/20 Unspecified retinal detachment documented in this encounter Care Teams Applications Engineer Manufacturing Relationship Specialty Start Date End Date Svetlana Buckley MD [facility] [place] [address] PCP - General 04/18/10 documented as of this encounter
--- OUTSIDE RECORDS SUMMARY | 2024-05-14 17:06 | XMS_ITS | Encounter Summary ---
Author Organization [facility] [place] [address] Care Team Providers Care Hall Supervisor Name Role Phone Svetlana Buckley MD Primary Care Provider [phone] Reason for Visit * Auth/Cert Specialty Diagnoses / Procedures Referred By Shasha t Referred To Contact Diagnoses Retinal Detachment, left eye Procedures PRO REPAIR DETACH RETINA,W VITRECTOMY REPAIR RETINAL DETACHMENT W/ VITRECTOMY, SCLERAL BUCKLE; AIR,GAS,OIL,LASER,CRYO (WRVU 15.19) Referral ID Status Reason Start Date Expiration Date Visits Re quested Visits Authorized [id number] 1 1 Encounter Details Date Type Department Care Team (Late st Contact Info) Description 01/29/2020 8:28 AM EDT Anesthesia Event [place] [address] Vazquez Hankins MD [facility] [place] [address] Anesthesia Record Procedure Summary Procedure Name Responsible Anesthesiologist Anesthesia Start Time Anesthesia Stop Time REPAIR RETINAL DETACHMENT W/ VITRECTOMY, SCLERAL BUCKLE; AIR,GAS,OIL,LASER,CR YO (WRVU 17.13) (Left: Eye) Vazquez Hankins MD 01/29/20 0828 01/29/20 1125 Events Date Time Event Comment 01/29/2020 0758 0828 AN Verify 0828 Start 0828 An Start Data 0834 An Induction 0838 An Intubation 0841 Anesthesia Ready 0856 Procedure Start 1110 Extubation/LMA Out 1110 an stop data 1125 Recovery or ICU Handoff Kierra ent care was transferred to the destination unit staff after review of the patient's medical history, current anesthetic/surgical status and plan, according to the Provider Handoff Checklist. 1125 Stop Meds Name Total Propofol 250 mg Propofol INF 436.96 mg fentaNYL 100 mcg Midazolam 2 mg IV Lidocaine 100 mg Dexamethasone 8 mg Ondansetron 8 mg Dexmedetomidine 12 mcg Ketorolac 30 mg Lactated Ringers 600 mL * Agents Name O2 Air N2O Sevoflurane (et) * Blood No blood administrations on file. Lines, Drains, and Airways Type Details Placement Removal Incision 01/29/20; eye; 01/22 (LDA cleanup utility RA#[id number]); 1715 (LDA cleanup utility RA#[id number]) 01/29/20 0000 by Keira Rossi RN 01/22/22 1715 by Cristhian Alicia (RETIRED) Peripheral IV Line - Single Lumen 01/29/20; 0820; metacarpal vein (top of hand), right; [id number] catheter system; 20 gauge; Marta Briones RN; distraction, intradermal injection; no longer indicated, catheter/device intact, removed per policy/procedure; 01/29/20; 1319 01/29/20 0820 by Kimani Rossi RN 01/29/20 1319 by Gary Still, RN Supraglottic Mask Ventilation: Warren alexander (1); LMA Type: air-Q; LMA Size: 4; Inserted by: Viktoriya Rock CRNA; Removal Date: 01/29/20; Removal Time: 1110 01/29/20 0842 by Viktoriya Rock CRNA 01/29/20 1110 by Viktoriya Rock CRNA documented in this encounter Social History Tobacco Use Types Packs/Day Years Used Date Smoking Tobacco: Never Smokeless Tobacco: Never Alcohol Use Standard Drinks/Week Comments Yes 0 (1 standard drink = 0.6 oz pur e alcohol) occasionally Sex and Gender Information Value Date Recorded Sex Assigned at Not on file Gender Identity Not on file Sexual Orientation Not on file documented as of this encounter OR Notes * Anesthesia Postprocedure Evaluation - Vazquez Hankins MD - 01/29/2020 11:38 AM EDT Department of Anesthesiology Post-procedure Note Patient: Troy Schumacher Procedure Summary Date: 01/29/20 Room / Location: [facility] OR [facility] MAIN OR Anesthesia Start: 827 Anesthesia Stop: 1124 Procedure: REPAIR RETINAL DETACHMENT W/ VITRECTOMY, SCLERAL BUCKLE; AIR,GAS,OIL,LASER,CRYO (WRVU 15.19) (Left Eye) Diagnosis: Left retinal detachment (Retinal Detachment, left eye) Surgeon: Carlos Andrew MD Responsible Provider: Vazquez Hankins MD Anesthesia Type: general ASA Status: 1 All Anesthesia Providers: Anesthesiologist: Vazquez Hankins MD SPOT MACHINE OPERATOR: Viktoriya Rock CRNA Vitals Value Taken Time BP 105/60 01/29/20 1130 Temp 36.6 ??C (97.9 ??F) 01/29/20 1116 Pulse 73 01/29/20 1116 Resp 16 01/29/20 1130 SpO2 92 % 01/29/20 1137 Pain Level Vitals shown include unvalidated device data. Patient Location: PACU/[facility] Level of Consciousness: Conscious but Sleepy Pain Management: Satisfactory Analgesia PONV: None Cardiovascular Status: Hemodynamically Stable Respiratory Status: Stable Respiratory Status Postoperative Fluid Status: Possible Anesthetic Complications: NONE apparent at time of evaluation Final Primary Anesthesia Type: General (The anesthetic type performed was the same as planned.) Comments: * Anesthesia Preprocedure Evaluation - Vazquez Hankins MD - 01/29/2020 7:57 AM EDT Pre-Anesthesia Evaluation for: Troy Schumacher a 29 y.o. male. Procedure(s): REPAIR RETINAL DETACHMENT W/ VITRECTOMY, SCLERAL BUCKLE; AIR,GAS,OIL,LASER,CRYO (WRVU 15.19) Patient Active Problem List Diagnosis ??? Left retinal detachment Added automatically from request for surgery [id number] Past Medical History: Diagnosis Date ??? Retinal detachment OS - [facility] ??? Trauma Concussions History reviewed. No pertinent surgical history. Social History Tobacco Use ??? Smoking status: Never Smoker ??? Smokeless tobacco: Never Used Substance Use Topics ??? Alcohol use: Yes Comment: occasionally Social History Substance and Sexual Activity Drug Use Never No Known Allergies Medications: MAR and/or home medications have been reviewed. Physical Exam: Patient Vitals for the past 24 hrs: Temp Pulse Resp BP SpO2 O2 Device 01/29/20 0710 36.2 ??C (97.2 ??F) 63 16 126/71 100 % RA Body mass index is 26.49 kg/m??. Height: 180.3 cm (5' 11) Weight: 86.1 kg (189 lb 14.4 oz) Airway Assessment: Mallampati: III TM distance: >3 FB Neck ROM: full avelar Cardiovascular Assessment: cardiovascular exam normal Pulmonary Assessment: pulmonary exam normal Dental Assessment: - normal exam Misc Assessment: Anesthesia Plan: ASA 1 general, with a(n) intravenous induction This is an otherwise healthy 29 year old male who presents for repair for LEFT retinal detachment. Appropriately NPO Denies reflux Plan LMA GA Region - Other Informed Consent: Anesthetic plan and risks discussed with patient and father. Plan discussed with SPOT MACHINE OPERATOR and attending. PAT Clinic Note documented in this encounter Plan of Treatment Not on file documented as of this encounter Visit Diagnoses Not on filedocumented in this encounter Administered Medications Inactive Administered Medications - up to 3 most recent administrations Medication Order MAR Action Action Date Dose Rate Site dexamethasone (Decadron) injection Intravenous, PRN, Starting on Sat01/29/20 at 0850, Until Sat01/29/20 at 1125, Anesthesia Intra-op, Routine Given 01/29/2020 8:50 AM EDT 8 mg dexmedetomidine (PRECEDEX) injection PRN, Starting on Sat01/29/20 at 0825, Until Sat01/29/20 at 1125, Anesthesia Intra-op, Routine Given 01/29/2020 9:46 AM EDT 4 mcg Given 01/29/2020 9:31 AM EDT 4 mcg Given 01/29/2020 8:25 AM EDT 4 mcg fentaNYL 50 mcg/mL multi-dose injection Intravenous, PRN, Starting on Sat01/29/20 at 0841, Until Sat01/29/20 at 1125, Anesthesia Intra-op, Routine Given 01/29/2020 9:44 AM EDT 25 mcg Given 01/29/2020 8:57 AM EDT 25 mcg Given 01/29/2020 8:47 AM EDT 25 mcg ketorolac (TORADOL) injection PRN, Starting on Sat01/29/20 at 1017, Until Sat01/29/20 at 1125, Anesthesia Intra-op, Routine Given 01/29/2020 10:17 AM EDT 30 mg lactated ringers infusion CONTINUOUS PRN, Starting on Sat01/29/20 at 0828, Until Sat01/29/20 at 1125, Anesthesia Intra-op New Bag 01/29/2020 8:28 AM EDT lidocaine (PF) (XYLOCAINE) 100 mg/5 mL (2 %) injection Intravenous, PRN, Starting on Sat01/29/20 at 0835, Until Sat01/29/20 at 1125, Anesthesia Intra-op, Routine Given 01/29/2020 8:35 AM EDT 100 mg midazolam (PF) (VERSED) multi-dose injection Intravenous, PRN, Starting on Sat01/29/20 at 0825, Until Sat01/29/20 at 1125, Anesthesia Intra-op, Routine Given 01/29/2020 8:25 AM EDT 2 mg ondansetron (ZOFRAN) injection Intravenous, PRN, Starting on Sat01/29/20 at 0847, Until Sat01/29/20 at 1125, Anesthesia Intra-op, Routine Given 01/29/2020 10:51 AM EDT 4 mg Given 01/29/2020 8:47 AM EDT 4 mg propofol (DIPRIVAN) 10 mg/mL bolus injection (Anesthesia) Intravenous, PRN, Starting on Sat01/29/20 at 0835, Until Sat01/29/20 at 1125, Anesthesia Intra-op Given 01/29/2020 8:35 AM EDT 250 mg propofol (DIPRIVAN) infusion Intravenous, CONTINUOUS PRN, Starting on Sat01/29/20 at 0845, Until Sat01/29/20 at 1125, Anesthesia Intra-op, Routine Rate/Dose Change 01/29/2020 9:43 AM EDT 25 mcg/kg/min 12.9 mL/hr Rate/Dose Change 01/29/2020 9:11 AM EDT 50 mcg/kg/min 25.8 mL/hr New Bag 01/29/2020 8:45 AM EDT 100 mcg/kg/min 51.7 mL/h r documented in this encounter Care Teams Hall Supervisor Relationship Specialty Start Date End Date Svetlana Buckley MD [facility] [employer] [place] [address] PCP - General 04/18/10 documented as of this encounter
--- OUTSIDE RECORDS SUMMARY | 2024-05-14 17:06 | XMS_ITS | Encounter Summary ---
Author Organization [facility] Address [address] [place] [address] Care Team Providers Care Toggle Press Operator Name Role Phone Suyapa Armendariz NP Primary Care Provider [phone] Reason for Visit * Auth/Cert (Routine) Specialty Diagnoses / Procedures Referred By Contac t Referred To Contact Diagnoses Scrotal pain Procedures [place] VASOVASOSTOMY VASOVASORRHAPHY VASOVASOSTOMY Referral ID Status Reason Start Date Expiration Date Visits Re quested Visits Authorized [id number] 1 1 Encounter Details Date Type Department Care Team (Late st Contact Info) Description 02/10/2024 10:55 EDT - 02/10/2024 15:50 EDT Surgery [facility] OR [address] [place] [address] [phone] Gil Bright MD [address] [place] [address], [address] [place] [address] VASOVASOSTOMY [[id number] (CPT??)] Surgery Details Date/Time Status Location OR Service Patient Class Case Cl ass Case Type Trauma Case? 02/10/2024 1055 Posted [facility] OR [facility] Urology [facility] Outpatient Surgery H - Elective Panel 1 Procedure LRB Anes Op Region Wound Class Comments VASOVASOSTOMY Bilateral Patient Choice Scrotum Class I I/ Clean Contaminated Surgeon Surgeon Role Service Panel Gil Bright MD Primary Urology 1 Kevon Villa DO Assisting Urology 1 Special Needs Microscope #10B, Kaila's light microscope, Dilshad Flat-top, 3 square pump-up stools, No methylene blue on field! Get Bludigo from OR Pharmacy documented in this encounter Social History Tobacco Use Types Packs/Day Years Used Date Smoking Tobacco: Never Smokeless Tobacco: Never Alcohol Use Standard Drinks/Week Comments Not Currently 0 (1 standard drink = 0.6 oz pur e alcohol) Sex and Gender Information Value Date Recorded Sex Assigned at Not on file Legal Sex Male 18:02 EST Gender Identity Male 07/23/2023 15:53 EST Sexual Orientation Not on file documented as of this encounter Last Filed Vital Signs Vital Sign Reading Time Taken Comments Blood Pressure 118/83 02/10/2024918 EDT Pulse - - Temperature 36.2 ??C (97.2 ??F) 02/10/2024918 EDT Respiratory Rate 14 02/10/2024918 EDT Oxygen Saturation 98% 02/10/2024918 EDT Inhaled Oxygen Concentration - - Weight - - Height - - Body Mass Index - - documented in this encounter Discharge Instructions * Discharge Instructions* Kevon Villa DO - 02/10/2024 17:56 EDT Post Operative Urology Instructions Activity Rest when you feel tired. Getting enough sleep will help you recover. Try to walk each day. Start by walking a little more than you did the day before. Bit by bit, increase the amount you walk. Walking boosts blood flow and helps prevent pneumonia and constipation. You may shower 24 hours after surgery. Pat the cut (incision) dry. Do not take a bath for the firstweek after surgery. You may return to work or school when you are ready. This is usually in about 2- 5 days. Avoid strenuous activities, such as bicycle riding, jogging, weight lifting, or aerobic exercise for 3 weeks. For 3 weeks, avoid lifting anything that would make you strain. This may include heavy grocery bagsand milk containers, a heavy briefcase or backpack, cat litter or dog food bags, a vacuum stitch cleaner, or a child. Avoid sexual activity or ejaculation for [address] while taking narcotic medication Diet You can eat your normal diet. If your stomach is upset, try bland, low-fat foods like plain rice, broiled chicken, toast, and yogurt. Drink plenty of fluids to avoid becoming dehydrated. You may notice that your bowel movements are not regular right after your surgery. This is common. Try to avoid constipation and straining with bowel movements. You may want to take a fiber supplement every day. If you have not had a bowel movement after a couple of days, ask your doctor about taking a mild laxative. Medicines Your doctor will tell you if and when you can restart your medicines. He or she will also give you instructions about taking any new medicines. If you stopped taking aspirin or some other blood thinner, you will be instructed when to start taking this again Take pain medicines exactly as directed. If the doctor gave you a prescription medicine for pain, take it as prescribed. If you are not taking a prescription pain medicine, you may take Tylenol and Ibuprofen over the counter medications. If you think pain medicine is making you sick to your stomach: Take your medicine after meals (unless the doctor has told you not to). Ask your doctor for a different pain medicine. Incision care Your sutures are absorbable and do not need to be removed Your incision may have Steri-strips (small pieces of tape) over it, these will fall off with time Your incision may have surgical glue over it. Do not pick at the glue, this will fall off with time. Wash the area daily with warm, soapy water, and pat it dry. Don't use hydrogen peroxide or alcohol,which can slow healing. You may cover the area with a gauze bandage if it weeps or rubs against clothing. Change the bandage every day. Keep the area clean and dry. Appointments: Urology follow up We will be scheduling you follow up with Gil Bright MD. Our clinic will call you with a date and time for your follow-up appointment if not already arranged. If you have not heard from them several days after your discharge please call. Future Appointments Date Time Provider Department Center 02/12/2024 9:00 Nurse Call, [facility] Urology EP5 Uro None 02/28/2024 10:00 Gil Bright MD EP5 Uro None [facility] Urology Clinic: When should you call for help? Call 911 anytime you think you may need emergency care. For example, call if: You passed out (lost consciousness). You have severe trouble breathing. You have sudden chest pain and shortness of breath, or you cough up blood. Call your doctor now or seek immediate medical care if: You are sick to your stomach or cannot keep fluids down. You have pain that does not get better after you take pain medicine. You have a fever over 100.4 F. You have loose stitches, or your incision comes open. Bright red blood has soaked through the bandage over your incision. Your scrotum gets more swollen. You have signs of infection, such as: Increased pain, swelling, warmth, or redness. Red streaks leading from the incision. Pus draining from the incision. Swollen lymph nodes in your groin, neck, or armpits. [facility] Urology Clinic If you have urgent concerns after hours an on-call healthcare provider is available. You may call the hospital compugraph operator to reach the on-call provider at [phone]. If there is an emergency, you should proceed immediately to the emergency department. documented in this encounter Medications at Time of Discharge calcium carbonate (TUMS ORAL) Take by mouth if needed. ergocalciferol, vitamin D2, (VITAMIN D ORAL) Take by mouth if needed. Winter months sildenafil citrate (VIAGRA) 25 mg tablet Take 1 Tablet by mouth every evening. acetaminophen (TYLENOL) 500 mg tablet Take 2 Tablets by mouth every 6 hours as needed for up to 30 days for Pain. 02/10/2024 03/11/2024 ibuprofen (MOTRIN) 600 mg tablet Take 1 Tablet by mouth every 6 hours as needed for up to 30 days for Pain. 02/10/2024 03/11/2024 oxyCODONE (ROXICODONE) 5 mg immediate release tablet Take 1 Tablet by mouth every 4 hours as needed for up to 14 days for Pain. Daily Max: 30 mg 6 Tablet 02/10/2024 02/24/2024 documented as of this encounter Ordered Prescriptions Prescription Sig Dispense Quantity Refills Last Filled Start Date End Date oxyCODONE (ROXICODONE) 5 mg immediate release tablet Take 1 Tablet by mouth every 4 hours as needed for up to 14 days for Pain. Daily Max: 30 mg 6 Tablet 02/10/2024 4 acetaminophen (TYLENOL) 500 mg tablet Take 2 Tablets by mouth every 6 hours as needed for up to 30 days for Pain. 02/10/2024 ibuprofen (MOTRIN) 600 mg tablet Take 1 Tablet by mouth every 6 hours as needed for up to 30 days for Pain. 02/10/2024 4 documented in this encounter Discharge Disposition Disposition Code Departure Means Destination Comment s Home or Self Care Wheelchair Home documented in this encounter H&P Notes * Kevon Villa DO - 02/10/2024 1234 EDT The preoperative history and physical which was performed within 30 days of this procedure has beenreviewed and the clinically appropriate elements of the physical examination have been repeated. There are no changes to the documented history and physical or if so such changes are documented below. KEVON VILLA DO 02/10/2024 12:34 Cosigned by Gil Bright MD at 02/12/2024 10:10 EDT Source Note - Amalia Chapa MD - 02/08/2024 9:06 EDT DOS: 02/08/2024 Chief Complaint: Chief Complaint Patient presents with Pre-op Exam Vasectomy reversal scheduled for 02/10/24 Assessment and Plan Troy Schumacher is a 33 y.o. male who presents for a preoperative evaluation for a vasectomy reversalsurgery. Troy Schumacher is low risk for cardiac complications from the scheduled low risk surgery. Medication adjustment recommendations: NA Patient endocarditis prophylaxis recommendation: not applicable. Perioperative beta-kareem recommendation: no - betablocker not indicated. Final diagnoses: Preop cardiovascular exam Procedures No results found for this visit on 02/08/24. Radiology orders: None Consult orders: None Imaging Results None No orders to display The patient is a 33 y.o. male who presents today with Pre-op Exam (Vasectomy reversal scheduled for02/10/24) Subjective: feeling good Planned Procedure: vasectomy reversal Surgeon: Kaila Planned Procedure Date: 02/09 Cardiovascular / pulmonary risk factors: none Prior history of anesthetic complications: no Prior history of bleeding problems: no Prior history of DVT/PE: no Family history of anesthetic complications, bleeding problems or DVT/PE: no. Past relevant surgeries: vasectomy, wisdom teeth, tonsillectomy EtOH/tobacco/substance abuse: no tobacco, occ mj, no etoh Revised Cardiac Risk Index (RCRI): 0 points Relevant ROS: exertional chest pain: no, dyspnea: no, orthopnea: no, palpitations: no, recent syncope: no, blood glucose controlled: yes, recent bleeding: no, recent illness: no Medications: Reviewed and documented in the medical record History: Social, family, and surgical, and personal medical history reviewed and documented in the medical record. Review of Systems No current facility-administered medications for this encounter. Current Outpatient Medications Medication Sig Dispense Refill acetaminophen (TYLENOL ORAL) Take by mouth if needed. (Patient not taking: Reported on 02/08/2024) calcium carbonate (TUMS ORAL) Take by mouth if needed. (Patient not taking: Reported on 02/08/2024) ergocalciferol, vitamin D2, (VITAMIN D ORAL) Take by mouth if needed. Winter months (Patient not taking: Reported on 01/31/2024) IBUPROFEN ORAL Take by mouth if needed. (Patient not taking: Reported on 02/08/2024) sildenafil citrate (VIAGRA) 25 mg tablet Take 1 Tablet by mouth every evening. No Known Allergies Patient Active Problem List Diagnosis Date Noted Scrotal pain 10/22/2023 Past Medical History: Diagnosis Date Back pain Noted 01/31/2024: ocassionally Claustrophobia Noted 01/31/2024: tight spaces Exercise involving walking Noted 01/31/2024: walking, physical job, can climb 1 FOS w/ no SOB GERD (gastroesophageal reflux disease) Noted 01/31/2024: ocassionally, PRN TUMS, can lay flat Head trauma Noted 01/31/2024: as a child w/ LOC History of general anesthesia Noted 01/31/2024: no complications Scrotal pain Noted 01/31/2024: Sleep apnea Noted 01/31/2024: hasnt used CPAP in months Wears glasses Noted 01/31/2024: and contacts Social History Tobacco Use Smoking status: Never Smokeless tobacco: Never Substance Use Topics Alcohol use: Not Currently Drug use: Not Currently Types: Marijuana Family History Problem Relation Age of Onset Arthritis Father Diabetes Father High Blood Pressure Father High Cholesterol Father Vision Loss Father BP (!) 148/77 Pulse 77 Temp 97.9 ??F (36.6 ??C) (Temporal) Resp 16 Ht 182.9 cm (72) Wt (!) 111.1 kg (245 lb) SpO2 98% BMI 33.23 kg/m?? Physical Exam Vitals and nursing note reviewed. Constitutional: General: He is not in acute distress. Appearance: Normal appearance. HENT: Head: Normocephalic and atraumatic. Mouth/Throat: Mouth: Mucous membranes are moist. Eyes: Extraocular Movements: Extraocular movements intact. Cardiovascular: Rate and Rhythm: Normal rate and regular rhythm. Heart sounds: Normal heart sounds. Pulmonary: Effort: Pulmonary effort is normal. No respiratory distress. Breath sounds: No stridor. No wheezing, rhonchi or rales. Abdominal: General: There is no distension. Palpations: Abdomen is soft. Musculoskeletal: General: Normal range of motion. Cervical back: Normal range of motion. Skin: General: Skin is warm and dry. Neurological: Mental Status: He is alert and oriented to person, place, and time. Psychiatric: Mood and Affect: Mood normal. Behavior: Behavior normal. PCP: Suyapa Armendariz Urgent Care Course A medical screening exam was performed. DISPOSITION: Discharged The patient's pain was managed to an adequate level weighing risk vs. benefit of further medications. Upon departure from [facility], the patient's pain was 0 on a zero to ten scale. Any further pain treatment will be at the discretion of the provider following up with the patient based on their clinical assessment . Condition at departure from the [facility] : Stable MDM 02/08/2024 10:40 documented in this encounter OR Notes * OR Surgeon - Gil Bright MD - 02/10/2024 0000 EDT OPERATIVE REPORT SERVICE DATE: 02/10/2024 PREOPERATIVE DIAGNOSIS: Chronic scrotal pain. PROCEDURE: Right vasoepididymostomy and left vasovasostomy. POSTOPERATIVE DIAGNOSIS: Chronic scrotal pain. SURGEON: Gil Bright MD WOOD SHOP TEACHER: Kevon Villa DO COMPLICATIONS: None. ESTIMATED BLOOD LOSS: Minimal. ANESTHESIA: General. SPECIMENS: None. DRAINS: None. INDICATIONS: Troy is a 33-year-old man with a history of chronic scrotal pain following a vasectomy 4 years ago with a pain pattern consistent with obstructive type pain. After discussion of risks and alternatives, he elected to undergo an attempt at vasectomy reversal. NARRATIVE: After informed consent was obtained, the patient was brought to the operating room and general anesthesia was induced. Appropriate antibiotics were administered. He was placed in the supine position with the genitalia clipped, prepped and draped in standard sterile fashion. A multidisciplinary timeout was called to verify the correct patient and procedure. Beginning on the patient's right side, the vasectomy defect was palpable and a 1 cm vertical scrotal skin incision was made sharply with a 15 blade and dissection carried out around the vas with the sharp hemostat and ring clamps. The vas was encircled with a vessel loop, both proximal and distal to the obstructed segment. A combination of sharp and Bovie dissection was then carried out along the obstructed segment to separate it from the remainder of the spermatic cord. Once this obstructed segment had been isolated, it was excised with a straight blade passed through a slotted nerve clamp. The segment on the right side measured 1.7 cm. The abdominal end of the vas was cannulated with a 24-gauge Angiocath and flushed fr eely with saline, indicating distal patency. Thick white fluid was expressed from the testicular end of the vas and this was examined under the microscope and found to contain debris only with no sperm or sperm parts. The epididymis was massaged and several samples were investigated under the microscope, again with no sperm or sperm parts identified. The volume of fluid decreased and eventually stopped and we therefore elected to proceed with vasoepididymostomy on the right side. The skin incision was extended an additional 4 cm and the dartos was divided with electrocautery. The testicle and epididymis was delivered through the incision. The tunica vaginalis was opened over the epididymis. Dilated tubules were identified within the head and body of the epididymis with an abrupt transition point in the tail of the epididymis. The abdominal end of the vas was brought through a separate stab incision in the tunica vaginalis and fixed to the tunica vaginalis with an interrupted 7-0 Vicryl suture. A dilated epididymal tubule was identified and the epididymal tunica was then opened sharply with microscissors. The vas and exposed epididymal tubules were painted with indigo carmine. The epididymal tunic was reapproximated to the seromuscular vas with 2 interrupted double-armed 9-0 nylon sutures and then tied down. Two 10-0 nylon double-armed suture needles were then passed in parallel fashion through one of the dilated epididymal tubules. A Juncos blade was then madeto puncture the epididymal tubule between the needles and cloudy white fluid was aspirated and examined under the microscope with numerous motile sperm identified. The 10-0 nylon suture needles were pulled through the epididymal tubule and the four 10-0 nylon needles were then passed through their corresponding locations through the lumen of the abdominal vas. These were tied down and 2 additional double-armed 9-0 nylon sutures were used to approximate the far end of the epididymal tunic onto the seromuscular vas anteriorly to complete the anastomosis. This appeared watertight as no further milky fluid was identified following closure. The tunica vaginalis was closed with a running 4-0 Vicryl suture and the testicle returned to anatomic position. The skin was infiltrated with 0.25% Marcaine with additional 0.25% Marcaine infiltrated as a spermatic cord block and the dartos was closed with a running locking 3-0 chromic stitch and the skin with a running horizontal mattress 3-0 chromic suture. This was dressed with bacitracin andfluffed gauze. Attention was then turned to the patient's left side. The left vas was dissected in a similar fashion, encircling it with a vessel loop, both above and below the obstructed segment. The obstructed segment was sharply excised and measured 0.8 cm. The abdominal end of the vas was again flushed with saline through a 24- gauge Angiocath indicating distal patency and the fluid from the testicular end of the vas appeared milky white and was found to contain sperm heads. We therefore elected to proceedwith vasovasostomy on the left side. This was completed with 5 interrupted double-armed 9-0 nylon sutures in the seromuscular layer and 4 double-armed 10-0 nylon sutures in the mucosal layer. A Microspike approximator clamp was used to hold the 2 ends of the vas in position and released at the end.Hemostasis was achieved as necessary with bipolar cautery. A spermatic cord block was also carried out on the left side and the skin incision infiltrated with additional 0.25% Marcaine. The vas was returned to anatomic position with gentle traction on the testicle and the skin closed with a horizontal mattress 3-0 chromic stitch. This was also dressed with bacitracin, fluffed gauze and a mesh undergarment. He tolerated the procedure well without immediate complication and was brought to the recovery room in good condition. I was present for and actively involved in the entire procedure. Gil Bright MD / CD Confirmation: [id number] Dictation ID: [id number] cc: documented in this encounter Miscellaneous Notes * Brief Op Note - Kevon Villa DO - 02/10/2024 1439 EDT [facility] Urologic Surgery Brief Post-Op Note Date of Surgery: 02/10/2024 Surgeon: Gil Bright MD Assistants: Kevon Villa DO Pre-Op Diagnosis: Postvasectomy testicular pain Post-Op Diagnosis: Same Procedure(s): left vasovasostomy, right vasoepididymostomy Findings: No sperm seen in testicular portion of right vas. Sperm had seen in testicular portion ofleft vas. Easy flushing of saline on the abdominal portion of vasa bilaterally. Good hemostasis at end of case. Anesthesia Type: General I/O Fluids: per anesthesia Urine Output: not recorded Estimated Blood Loss: 10cc Pre op antibiotic: cefazolin Retained foreign materials: Specimens/Cultures: None Drains/Packs: None Stents: None Wound Classification: Class II/Clean-contaminated Complications: None Disposition and Condition: Troy Schumacher was sent to PACU in Stable condition. Post-op plan PACU then home Pain: acetaminophen, ibuprofen, oxycodone Scrotal support, bacitracin to incisions TID for 5 days Follow up: see below Future Appointments Date Time Provider Department Center 02/12/2024 9:00 Nurse Call, [facility] Urology EP5 Uro None 02/28/2024 10:00 Gil Bright MD EP5 Uro None KEVON VILLA DO 02/10/2024 17:59 documented in this encounter Plan of Treatment Upcoming Encounters Date Type Department Care Team (Late st Contact Info) Description 08/17/2024 11:00 EDT Appointment [facility] [address] [phone] Lab, E&I 08/17/2024 13:00 EDT Office Visit [facility] [address] [phone] Gil Bright MD [address] [place] [address], [address] [place] [address] documented as of this encounter Procedures Procedure Name Priority Date/Time Associated Diagnosis Comments VASOVASOSTOMY 02/10/2024 13:11 EDT Scrotal pain Special Needs Microscope #10B, Kaila's light microscope, Dilshad Flat-top, 3 square pump-up stools, No methylene blue on field! Get Bludigo from OR Pharmacy documented in this encounter Visit Diagnoses Diagnosis Scrotal pain- Primary Unspecified disorder of male genital organs Scrotal pain Unspecified disorder of male genital organs documented in this encounter Admitting Diagnoses Diagnosis Scrotal pain Unspecified disorder of male genital organs documented in this encounter Administered Medications Inactive Administered Medications - up to 3 most recent administrations Medication Order MAR Action Action Date Dose Rate Site acetaminophen (TYLENOL) tablet 1,000 mg 1,000 mg, oral, PRN, 1 dose, Starting on Sat02/10/24 at 1820, Until Sat02/10/24 at 2206, Pain, Routine, Recovery (only) atropine 0.1 mg/mL syringe 0.5 mg 0.5 mg, intravenous, PRN, Starting on Sat02/10/24 at 1820, Until Sat02/10/24 at 2206, Symptomatic HR < 50, Routine, Recovery (only) BUPivacaine (PF) (MARCAINE) 0.25 % (2.5 mg/mL) injection PRN, Starting on Sat02/10/24 at 1400, Until Sat02/10/24 at 1821, Routine, Intraprocedure Given 02/10/2024 17:42 EDT 2 mL Other Given 02/10/2024 14:00 EDT 6 mL Othe r diphenhydrAMINE (BENADRYL) injection 12.5 mg 12.5 mg, intravenous, PRN, 1 dose, Starting on Sat02/10/24 at 1820, Until Sat02/10/24 at 2206, nausea, Routine, Recovery (only) HYDROmorphone (PF) (DILAUDID) 0.5 mg/0.5 mL syringe 0.25-0.5 mg 0.25-0.5 mg, intravenous, EVERY 10 MINUTES PRN, 2 doses, Starting on Sat02/10/24 at 1820, Until Sat02/10/24 at 2206, Pain, Routine, Recovery (only) lactated ringers (LR) infusion 30 mL/hr, intravenous, CONTINUOUS, Starting on Sat02/10/24 at 0930, Until Sat02/10/24 at 2206, Routine, Preprocedure New Bag 02/10/2024 9:38 EDT 30 mL/hr 30 mL/hr lactated ringers (LR) infusion at 75 mL/hr, intravenous, CONTINUOUS, Starting on Sat02/10/24 at 1845, Until Sat02/10/24 at 220, Routine, Recovery (only) Rate Documented 02/10/2024 18:24 EDT 75 mL/hr metoclopramide (REGLAN) injection 10 mg 10 mg, intravenous, PRN, 1 dose, Starting on Sat02/10/24 at 1820, Until Sat02/10/24 at 220, Nausea, Routine, Recovery (only) naloxone (NARCAN) injection 0.2 mg 0.2 mg, intravenous, PRN, Starting on Sat02/10/24 at 1820, Until Sat02/10/24 at 2206, Opioid Reversal, Routine, Recovery (only) oxyCODONE (ROXICODONE) immediate release tablet 5-10 mg 5-10 mg, oral, EVERY 30 MINUTES PRN, 2 doses, Starting on Sat02/10/24 at 1820, Until Sat02/10/24 at 2206, Pain, Routine, Recovery (only) sodium chloride 0.9 % irrigation PRN, Starting on Sat02/10/24 at 1400, Until Sat02/10/24 at 1821, Routine, Intraprocedure Given 02/10/2024 14:00 EDT 1,000 mL Other documented in this encounter Discontinued Medications Medication Sig Discontinue Reason Start Date End Da te IBUPROFEN ORAL Take by mouth if needed. Stop Taking at Discharge 02/10/2024 acetaminophen (TYLENOL ORAL) Take by mouth if needed. Stop Taking at Discharge 02/10/2024 documented as of this encounter Active and Recently Administered Medications Times are shown in EDT. Scheduled Medication Order 02/08/2024 02/09/2024 02/10/2024 ceFAZolin (ANCEF) syringe 2 g (COMPLETED) 2 g, intravenous, Administer over 10 Minutes, PRE-OP ONCE, 1 dose, On Sat02/10/24 at 0930, Type of Therapy: Prophylaxis, Suspected Indication (Select all that apply): Surgical prophylaxis, Routine, Preprocedure 1347 (Given - Provid er: Abdirashid Viveros MD)1402 (Canceled Entry - Provider: Abdirashid Viveros MD) indigotindisulfonate sodium (BLUDIGO) 8 mg/mL (0.8 %) injection 40 mg 40 mg, intravenous, NOW X1, 1 dose, On Sat02/10/24 at 1115, STAT, Intraprocedure 1115 (Canceled Entry - Provider: Batch Job User Admin - Comment: Automatically canceled at discontinue of medication order) Continuous Medication Order 02/08/2024 02/09/2024 02/10/2024 lactated ringers (LR) infusion 30 mL/hr, intravenous, CONTINUOUS, Starting on Sat02/10/24 at 0930, Until Sat02/10/24 at 2206, Routine, Preprocedure 0938 (New Bag - Prov ider: Gianna Weathers RN)2206 (Due: Completed) lactated ringers (LR) infusion at 75 mL/hr, intravenous, CONTINUOUS, Starting on Sat02/10/24 at 1845, Until Sat02/10/24 at 2206, Routine, Recovery (only) 1824 (Rate Documente d - Provider: Sharmila Valenzuela RN)2205 (Due: Completed) PRN Medication Order 02/08/2024 02/09/2024 02/10/2024 acetaminophen (TYLENOL) tablet 1,000 mg 1,000 mg, oral, PRN, 1 dose, Starting on Sat02/10/24 at 1820, Until Sat02/10/24 at 220, Pain, Routine, Recovery (only) atropine 0.1 mg/mL syringe 0.5 mg 0.5 mg, intravenous, PRN, Starting on Sat02/10/24 at 1820, Until Sat02/10/24 at 220, Symptomatic HR < 50, Routine, Recovery (only) BUPivacaine (PF) (MARCAINE) 0.25 % (2.5 mg/mL) injection (CANCELED) PRN, Starting on Sat02/10/24 at 1400, Until Sat02/10/24 at 1821, Routine, Intraprocedure 1400 (Given - Provid er: Gil Bright MD - Comment: scrotum)1742 (Given - Provider: Gil Bright MD - Comment: scrotum) diphenhydrAMINE (BENADRYL) injection 12.5 mg 12.5 mg, intravenous, PRN, 1 dose, Starting on Sat02/10/24 at 1820, Until Sat02/10/24 at 2206, nausea, Routine, Recovery (only) HYDROmorphone (PF) (DILAUDID) 0.5 mg/0.5 mL syringe 0.25-0.5 mg 0.25-0.5 mg, intravenous, EVERY 10 MINUTES PRN, 2 doses, Starting on Sat02/10/24 at 1820, Until Sat02/10/24 at 2206, Pain, Routine, Recovery (only) metoclopramide (REGLAN) injection 10 mg 10 mg, intravenous, PRN, 1 dose, Starting on Sat02/10/24 at 1820, Until Sat02/10/24 at 2206, Nausea, Routine, Recovery (only) naloxone (NARCAN) injection 0.2 mg 0.2 mg, intravenous, PRN, Starting on Sat02/10/24 at 1820, Until Sat02/10/24 at 2206, Opioid Reversal, Routine, Recovery (only) oxyCODONE (ROXICODONE) immediate release tablet 5-10 mg 5-10 mg, oral, EVERY 30 MINUTES PRN, 2 doses, Starting on Sat02/10/24 at 1820, Until Sat02/10/24 at 2206, Pain, Routine, Recovery (only) sodium chloride 0.9 % irrigation (CANCELED) PRN, Starting on Sat02/10/24 at 1400, Until Sat02/10/24 at 1821, Routine, Intraprocedure 1400 (Given - Provid er: Gil Bright MD - Comment: groin) documented in this encounter Orders Medications Ordered That Zane ht Not Have Been Administered Count Last Ordered Date First Ordered Date acetaminophen (TYLENOL) tablet 1,000 mg 1 0 02/10/2024 atropine 0.1 mg/mL syringe 0.5 mg 1 024 ceFAZolin (ANCEF) syringe 2 g 1 02/10/2024 diphenhydrAMINE (BENADRYL) i njection 12.5 mg 1 02/10/2024 HYDROmorphone (PF) (DILAUDID ) 0.5 mg/0.5 mL syringe 0.25-0.5 mg 1 02/10/2024 indigotindisulfonate sodium (BLUDIGO) 8 mg/mL (0.8 %) injection 40 mg 1 02/10/2024 lidocaine (PF) 10 mg/mL (1 % ) injection 2 mg 1 02/10/2024 metoclopramide (REGLAN) injection 10 mg 1 0 02/10/2024 naloxone (NARCAN) injection 0.2 mg 1 2023 oxyCODONE (ROXICODONE) immed iate release tablet 5-10 mg 1 02/10/2024 Discharge Count Last Ordered Date First Orde red Date DISCHARGE PATIENT 1 02/10/2024 documented in this encounter Care Teams Toggle Press Operator Relationship Specialty Start Date End Date Suyapa Armendariz, PELON [address] [place] [address] PCP - General Family Medicine - Primary Care 07/23/23 02/11/24 documented as of this encounter
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
--- OUTSIDE RECORDS SUMMARY | 2024-05-14 17:06 | XMS_ITS | Encounter Summary ---
Author Organization [facility] Address [address] [place] [address] Care Team Providers Care Digital Marketing Consultant Name Role Phone Suyapa Armendariz SERVICE ASSOCIATE Primary Care Provider [phone] Reason for Visit * Reason Comments Other Family history of au tism. Interested in carrier testing * Referral (Routine) - Authorization Not Required Specialty Diagnoses / Procedures Referred By Shasha concepcion Referred To Contact Pediatric Genetics Diagnoses Family history of other mental and behavioral disorders Suyapa Armendariz, SERVICE ASSOCIATE [address] [place] [address] Phone: tel: fax: [facility] Pediatric Genetics - [facility] [address] [place] [address] Phone: tel: fax: Referral ID Status Reason Start Date Expiration Date Visits Requested Visits Authorized [id number] Authorization Not Required 1 1 Encounter Details Date Type Department Care Team (Late st Contact Info) Description 10/04/2023 8:00 EDT Telemedicine [facility] Clinical Genetics [facility] [address], [place] [id number] Sheila Butler, MS [address] [facility] [place] [place] [address] Encounter for procreative genetic counseling and testing (Primary Dx); Family history of autism; Screening for genetic disease carrier status Social History Tobacco Use Types Packs/Day Years Used Date Smoking Tobacco: Never Assessed Sex and Gender Information Value Date Recorded Sex Assigned at Not on file Legal Sex Male 18:02 EST Gender Identity Male 07/23/2023 15:53 EST Sexual Orientation Not on file documented as of this encounter Progress Notes * FranciscoSheila torres, - 10/04/2023 0800 EDT [facility] CLINICAL GENETICS PROGRAM TELEMEDICINE VIDEO VISIT ENCOUNTER Encounter Date: 10/04/2023 Name: Troy Schumacher : 1990 PCP: Suyapa Armendariz Troy Schumacher is a 33 y.o. male who is seen for a Genetics Telemedicine Video Visit Encounter at the request of Suyapa Armendariz NP for genetic counseling because he and his partner are considering starting a family. Troy also has a lzgv-gvsi-uvn daughter with autism from a previous relationship. He was interested in carrier testing. TELEMEDICINE VIDEO VISIT Today's visit was provided through telemedicine video conferencing: I have reviewed the appropriateness of using video technology with the patient with regards to today's visit. The location of the patient : Home (where patient lives) The location of the provider: Office The following people and their roles were present for today's visit: Troy Schumacher, patient Appointment Provider: Sheila Butler, MS, Certified Genetic Counselor The concept of ???Telemedicine?? has been described to the patient or guardian.? Patient/guardian has been informed of the anticipated benefits and possible risks.? Patient/guardian understands the information provided regarding telemedicine, has had the opportunity to ask questions about this information, and all questions have been answered to patient???s satisfaction. Patient/guardian consents for the use of telemedicine in his/her medical care and authorizes the transmission of any relevant medical information to providers and their staff involved in patient???s medical or mental health care. FAMILY HISTORY: A detailed three-generation pedigree was obtained as part of this visit. Troy has a 12-year-old son with ADHD and a tbpu-fqhs-xrs daughter with autism from a previous relationship. Troy and his previous partner were second cousins. His daughter has not had a genetic evaluation to determine the cause of autism. Troy has a healthy 30-year-old brother, a 28-year-old brother with ADHD, and a healthy 13-inck-qawlfsqfhi, none of whom have children. Troy's mother is 57 years of age and healthy. She had a brother who but Troy was not aware of the age or cause of . Troy also has a healthy maternal uncle and healthy maternal aunt. Troy's maternal grandparents are alive and well. Troy's father is 67 years of age and has high blood pressure, diabetes, and a history of a left detached retina. He had a brother who at 65 years of age but he did not know the cause. Troy hastwo paternal uncles who are healthy. Troy's paternal grandmother is 89 years of age and has diabetes, high cholesterol, and had a heart attack. Troy's paternal grandfather from a heart attack but he was not aware of his age at the time of . Troy is of at least [place] ancestry. There is no known consanguinity in the family. The rest of the family history is unremarkable. 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 He has some hearing loss due to environmental exposures. He also has sleep apnea. 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 SUMMARY OF DISCUSSION: Troy Schumacher is a 33 y.o. male with a daughter with autism. His daughter has not had a genetic evaluation for her autism, and Troy and his previous partner were second cousins. He and his new partner are considering starting a family and he was interested in carrier testing. Troy's partner has three healthy children from two relationships. She has two healthy brothers and her parents are healthy. She was also an egg donor several times and had some genetic testing through that program but Troy was not sure of the specifics of that testing. We discussed autosomal recessive inheritance. We have two copies of most of our genes, one from themother and one from the father. Autosomal recessive conditions occur when each copy of a particularpair of genes is not functioning properly. Individuals with one working copy and one nonworking copy are called carriers. Carriers are typically not affected with the condition. Couples in which each individual is a carrier for the same specific condition have, with each , a 25% chance the child will be affected, a 50% chance the child will be a carrier, and a 25% chance the child willneither be affected nor a carrier. We discussed that second cousins are at a greater risk of carrying the same genetic changes for autosomal recessive conditions. We also discussed that it would be helpful if Troy's daughter had a genetic evaluation to possibly determine the cause for her autism. If a cause is identified, we could provide a more accurate recurrence risk. Troy did not think his daughter's mother would be willing to pursue that option. According to one study, The RR of ASD is 10.3 (95%CI 9.4-11.3; 49 vs 829 uza144,000 person-years), 3.3 (95%CI 2.6-4.2; 94 vs 492 per 100,000 person-years), 2.9 (95%CI 2.2-3.7;85 vs 371 per 100,000 person- years) and 2.0 (95%CI 1.8-2.2; 18 vs 61 per 100,000 person-years) for full, maternal and paternal half-siblings and cousins respectively (SABI 2013September 30;311(17): 7300-2980) We discussed that carrier testing is available through [employer], [employer] Carrier Screen, EN31399.1. We discussed the pros and cons of that testing including insurance implications. Troy was interestedin that testing. We placed the order through [employer]'s portal with insurance billing. Zarina will send a sample kit directly to his home. They will perform a benefits investigation with his insurance company and let him know of any out of pocket costs before performing the testing. Results should beavailable approximately three weeks after the laboratory receives the sample. We will contact him with those results as soon as they are available. The [employer] (ACMG) recommends offering carrier testing for cystic fibrosis and SMA to individuals of reproductive age in all ethnicities who are either or have the potential and intention to reproduce. Also, carrier screening has been routine and supported by the [place] [employer] (ACOG) since 2000. The results of genetic carrier screening are medically useful in protecting future generations frominheriting genetic illness. Genetic screening can help provide guidance on options available to prevent these diseases, such as diagnostic testing, preimplantation genetic testing, and screening. In some cases, early detection can also enable early, life-saving treatment. Testing will also allow appropriate management and informed decisions regarding family planning. PLAN: - [employer] Carrier Screen, [id number] with insurance billing 22m (Video Time) I spent a total of 35 minutes on the date of this encounter as indicated in the above progress note. The patient was seen under the supervision of Dr. Alissa Pritchett, who reviewed the case and was available for further consultation or questions at the time of the visit. Leticia Butler MS Genetic Counselor Alissa Pritchett MD ([facility]) Medical Genetics Electronically signed by Alissa Pritchett MD documented in this encounter Plan of Treatment Upcoming Encounters Date Type Department Care Team (Late st Contact Info) Description 08/17/2024 11:00 EDT Appointment [facility] [address] [id number] Lab, E&I 08/17/2024 13:00 EDT Office Visit [facility] Urology [address] [address] Gil Bright MD [address] [place] [address], [address] [place] [address] documented as of this encounter Visit Diagnoses Diagnosis Encounter for procreative genetic counseling and testing- Primary Family history of autism Family history of psychiatric condition Screening for genetic disease carrier status documented in this encounter Care Teams Digital Marketing Consultant Relationship Specialty Start Date End Date Suyapa Armendariz NP [address] [place] [address] PCP - General Family Medicine - Primary Care 07/23/23 02/11/24 documented as of this encounter
--- OUTSIDE RECORDS SUMMARY | 2024-05-14 17:06 | XMS_ITS | Encounter Summary ---
Author Organization [facility] Address [address] [place] [address] Care Team Providers Care It Systems Administrator Name Role Phone Suyapa Armendariz HORSE EXERCISER Primary Care Provider [phone] Reason for Visit * Reason Onset Date Comments Results 01/20/2024 Encounter Details Date Type Department Care Team (Late st Contact Info) Description 01/20/2024 Telephone [facility] Pediatric Genetics [facility] [address] [place], [place] [address] Sheila Butler, MS [address] [facility] [place] [id number] Results Social History Tobacco Use Types Packs/Day Years [...] on file documented as of this encounter Miscellaneous Notes * Telephone Encounter - Sheila Butler, - 01/20/2024 1043 EDT I let Troy know that when I was reviewing his test results with his , I noticed that the carrier testing for Congenital Adrenal Hyperplasia,21- hydroxylase deficiency was not done due to poor sample quality. They suggested a whole blood sample, EDTA, for testing. We could wait until his 's test is back and if she is a carrier, we can test him or we can go ahead and order the test now. He was going to talk with Sharon and get back to me. documented in this encounter Plan of Treatment Upcoming Encounters Date Type Department Care Team (Late st Contact Info) Description 08/17/2024 11:00 EDT Appointment [facility] - [address] [id number] Lab, E&I 08/17/2024 13:00 EDT Office Visit [facility] Urology - [address] [phone] Gil Bright MD [address] [place] [address], [address] [place] [phone] documented as of this encounter Visit Diagnoses Not on filedocumented in this encounter Care Teams It Systems Administrator Relationship Specialty Start Date End Date Suyapa Armendariz NP [address] [place] [address] PCP - General Family Medicine - Primary Care 07/23/23 02/11/24 documented as of this encounter
--- OUTSIDE RECORDS SUMMARY | 2024-05-14 17:06 | XMS_ITS | Encounter Summary ---
Author Organization [facility] Address [address] [place] [address] Care Team Providers Care Record Producer Name Role Phone Suyapa Armendariz NP Primary Care Provider [phone] Encounter Details Date Type Department Care Team (Late st Contact Info) Description 01/21/2024 Documentation Visit [facility] Urology - [address] [phone] Gil Bright MD [address] [facility], [address] [place] [phone] Social History Tobacco Use Types Packs/Day Years [...] as of this encounter Progress Notes * Lou Tovar - 01/21/2024 1034 EDT Patient's came into clinic to make a final payment ($8,900.00) for surgery on 02/10/24 with . documented in this encounter Plan of Treatment Upcoming Encounters Date Type Department Care Team (Late st Contact Info) Description 08/17/2024 11:00 EDT Appointment [facility] [address] [phone] Lab, E&I 08/17/2024 13:00 EDT Office Visit [facility] Urology [address] [address] Gil Bright MD [address] [place] [address], [address] [place] [phone] documented as of this encounter Visit Diagnoses Not on filedocumented in this encounter Care Teams Record Producer Relationship Specialty Start Date End Date Suyapa Armendariz, PELON [address] [place] [address] PCP - General Family Medicine - Primary Care 07/23/23 02/11/24 documented as of this encounter
--- OUTSIDE RECORDS SUMMARY | 2024-05-14 17:06 | XMS_ITS | Encounter Summary ---
Author Organization [facility] Address [address] [place] [address] Care Team Providers Care Frit Burner Name Role Phone Suyapa Armendariz NP Primary Care Provider Reason for Visit * Auth/Cert (Routine) Specialty Diagnoses / Procedures Referred By Contac t Referred To Contact Diagnoses Scrotal pain Procedures CA VASOVASOSTOMY VASOVASORRHAPHY VASOVASOSTOMY Referral ID Status Reason Start Date Expiration Date Visits Re quested Visits Authorized [id number] 1 1 Encounter Details Date Type Department Care Team (Late st Contact Info) Description 02/10/2024 8:46 EDT - 02/10/2024 19:45 EDT Hospital Encounter [facility] OR [address] [place] [phone] Gil Bright MD [address] [place] [address], [facility] [address] [place] [address] Discharge Disposition: Home or Self Care Social [...] Sign Reading Time Taken Comments Blood Pressure 131/78 02/10/2024 1930 EDT Pulse - - Temperature 36.6 ??C (97.9 ??F) 02/10/2024 1824 EDT Respiratory Rate 14 02/10/20241929 EDT Oxygen Saturation 96% 02/10/20241929 EDT Inhaled Oxygen Concentration - - Weight [...] litter or dog food bags, a vacuum cooker cleaner, or a child. Avoid sexual activity [...] Provider Department Center 02/12/2024 9:00 Nurse Call, [facility] Urology EP5 Uro None 02/28/2024 10:00 Gil Bright MD EP5 Uro None [facility] Urology Clinic: When should you call for [...] nodes in your groin, neck, or armpits. [facility] Urology Clinic If you have urgent concerns after hours an on-call healthcare provider is available. You may call the hospital benzene still utility operator to reach the on-call provider at [phone]. If there is an emergency, you should proceed immediately to the emergency department. documented in this encounter Medications at Time of Discharge calcium carbonate (TUMS ORAL) Take by mouth if needed. ergocalciferol, vitamin D2, (VITAMIN D ORAL) Take by mouth if needed. winter sildenafil citrate (VIAGRA) 25 mg tablet Take [...] Daily Max: 30 mg 6 Tablet 02/10/2024 acetaminophen (TYLENOL) 500 mg tablet Take 2 Tablets by mouth every 6 hours as needed for up to 30 days for Pain. 02/10/2024 ibuprofen (MOTRIN) 600 mg tablet Take 1 Tablet by mouth every 6 hours as needed for up to 30 days for Pain. 02/10/2024 documented in this encounter Discharge Disposition Disposition [...] of further medications. Upon departure from [facility], the patient's pain was 0 on a zero to ten scale. Any further pain treatment will be at the discretion of the provider following up with the patient based on their clinical assessment . Condition at departure from the [facility] : Stable MDM 02/08/2024 10:40 documented in this encounter OR Notes * OR Surgeon - Gil Bright MD - 02/10/2024 0000 EDT OPERATIVE REPORT SERVICE DATE: 02/10/2024 PREOPERATIVE DIAGNOSIS: Chronic scrotal pain. PROCEDURE: Right vasoepididymostomy and left vasovasostomy. POSTOPERATIVE DIAGNOSIS: Chronic scrotal pain. SURGEON: Gil Bright MD MACHINE LEARNING INTERN: Kevon Villa DO COMPLICATIONS: None. ESTIMATED BLOOD [...] one of the dilated epididymal tubules. A [place] blade was then madeto puncture the epididymal [...] procedure. Gil Bright MD / CD Confirmation: [id number] Dictation ID: [id number] cc: documented in this encounter Miscellaneous Notes * Brief Op Note - Kevon Villa DO - 02/10/2024 1909 EDT [facility] Urologic Surgery Brief Post-Op Note Date of [...] Provider Department Center 02/12/2024 9:00 Nurse Call, [facility] Urology EP5 Uro None 02/28/2024 10:00 Gil Bright MD EP5 Uro None KEVON VILLA DO 02/10/2024 17:59 documented in this encounter Plan of Treatment Upcoming Encounters Date Type Department Care Team (Late st Contact Info) Description 08/17/2024 11:00 EDT Appointment [facility] - [address] [address] Lab, E&I 08/17/2024 13:00 EDT Office Visit [facility] Urology - [address] [address] Gil Bright MD [address] [place] [address], [address] [place] [address] documented as of this encounter Procedures Procedure Name Priority Date/Time Associated Diagnosis Comments VASOVASOSTOMY 02/10/2024 13:11 EDT Scrotal pain Special Needs Microscope #[id number], Kaila's light microscope, Dilshad Flat-top, 3 square pump-up stools, No methylene blue on field! Get Bludigo from [place] Pharmacy documented in this encounter Visit Diagnoses Diagnosis Scrotal pain- Primary Unspecified disorder of male genital organs documented [...] Symptomatic HR < 50, Routine, Recovery (only) diphenhydrAMINE (BENADRYL) injection 12.5 mg 12.5 mg, intravenous, PRN, 1 dose, Starting on Sat02/10/24 at 1820, Until Sat02/10/24 at 220, nausea, Routine, Recovery (only) HYDROmorphone (PF) (DILAUDID) [...] Until Sat02/10/24 at 2206, Routine, Recovery (only) Rate Documented 02/10/2024 18:24 EDT 75 mL /hr metoclopramide (REGLAN) injection 10 mg 10 mg, [...] Sat02/10/24 at 2206, Pain, Routine, Recovery (only) documented in this encounter Discontinued Medications Medication [...] (New Bag - Prov ider: Gianna Weathers RN)2205 (Due: Completed) lactated ringers (LR) infusion at [...] Provid er: Gil Bright MD - Comment: scrotum)174 (Given - Provider: Gil Bright MD - [...] 0.1 mg/mL syringe 0.5 mg 1 024 BUPivacaine (PF) (MARCAINE) 0.25 % (2.5 mg/mL) injection 1 02/10/2024 ceFAZolin (ANCEF) syringe 2 g 1 02/10/2024 [...] iate release tablet 5-10 mg 1 02/10/2024 sodium chloride 0.9 % irrigation 1 02/10/20 24 Discharge Count Last Ordered Date First Orde red Date DISCHARGE PATIENT 1 02/10/2024 documented in this encounter Care Teams Frit Burner Relationship Specialty Start Date End Date Suyapa Armendariz, RESEARCH BIOLOGIST [address] [place] [address] PCP - General Family Medicine - Primary Care 07/23/23 02/11/24 documented as of this encounter
--- OUTSIDE RECORDS SUMMARY | 2024-05-14 17:06 | XMS_ITS | Encounter Summary ---
Author Organization [facility] Address [address] [place] [address] Care Team Providers Care Frame Trimmer Name Role Phone Unavailable Primary Care Provider Unavailabl e Encounter Details Date Type Department Care Team (Late st Contact Info) Description 06/21/2000 Results Only [facility] [address] [place] [address] Maximino Turner MD [address] [place] [address] Social History Tobacco Use Types Packs/Day Years Used Date Smoking Tobacco: Never Assessed Sex and Gender Information Value Date Recorded Sex Assigned at Not on file Legal Sex Male 18:02 EST Gender Identity Male 07/23/2023 15:53 EST Sexual Orientation Not on file documented as of this encounter Plan of Treatment Upcoming Encounters Date Type Department Care Team (Late st Contact Info) Description 08/17/2024 11:00 EDT Appointment [facility] - [address] [place] [address] [address] Lab, E&I 08/17/2024 13:00 EDT Office Visit [facility] Urology - [address] [place] [address] [phone] Gil Bright MD [address] [place] [address], [address] [place] [phone] documented as of this encounter Procedures Procedure Name Priority Date/Time Associated Diagnosis Comments SURGICAL PATHOLOGY Routine 06/21/2000 0:00 EST documented in this encounter Results * SURGICAL PATHOLOGY (06/21/2000 0:00 EST) Pathology Report: SURGICAL PATHOLOGY REPORT Reports generated via electronic interface contain original data; however they are lacking the format of the original report. Caution should be taken when reading/interpreti ng unformatted reports. Name: ? TROY SCHUMACHER ? Accession #: ? [id number] ? : ? 1990 (Age: 10) ??M ? Collect Date: ? 06/21/2000 ? Location: ? [facility] ? Receive Date: ? 06/21/2000 ? Provider: MAXIMINO TURNER MD Copy to: ANA LILIA MILLER MD ? Final Pathologic Diagnosis: A. ?Tonsil, right, tonsillectomy: 1. ?Consistent with tonsil. ??Gross only. B. ?Tonsil, left, tonsillectomy: 1. ?Consistent with tonsil. ??Gross only. C. ?Adenoids, adenoidectomy: 1. ?Consistent with adenoids. ??Gross only. Document reviewed and electronically signed by: Gianna Fabian MD Report ??Date: 06/24/2000 17:14 By the signature above, the attending physician certifies that he/she has personally conducted a gross and/or microscopic examination of the described specimens and rendered or confirmed the above diagnosis. Specimen(s) Received: A. ?Rt tonsil (#1) B. ?Left tonsil (#2) C. ?Adenoids (#3) Clinical History: ? Tonsil and adenoid hypertrophy; tonsillar asymmetry Gross Description: ? Received in formalin labelled Endy and right tonsil is the product of a right tonsillectomy which measures 2.2 x 1.7 x 1.2 cm. ??A portion of the surface of the soft tissue is covered by govea smooth mucosa. ??Sectioning reveals govea soft cut surfaces. ??Gross only. Received in formalin labelled Endy and left tonsil is a roughly ovoid govea focally hemorrhagic fragment of soft tissue which measures 2.6 x 1.8 x 1.2 cm. The surface of the soft fragment of tissue is partially covered by govea smooth mucosa. ??Serial sectioning reveals govea smooth focally hemorrhagic cut surfaces. Gross only. Received in formalin labelled Endy and adenoids is a cluster of govea irregular soft fragments of tissue which measure 2.5 x 2.2 x 1.2 cm in aggregate. ??Sectioning of this specimen reveals govea smooth slightly lobulated cut surfaces. ??Gross only. ??(Dr. Liu)/rigo End of Report [facility] 06/21/2000 06/21/2000 15: 21 EST us Maximino Turner MD PATHOLOGY ORDERABLES Final Resul t [facility] [address] [place] [address] documented in this encounter Visit Diagnoses Not on filedocumented in this encounter
--- OUTSIDE RECORDS SUMMARY | 2024-05-14 17:06 | XMS_ITS | Encounter Summary ---
Author Organization [facility] Address [address] [place] [address] Care Team Providers Care Food Handler Name Role Phone Suyapa Armendariz NP Primary Care Provider [phone] Nannette Jeffers STABLEHAND Primary Care Provider [phone] Reason for Visit * Reason Onset Date Comments FMLA Paperwork 02/11/2024 Encounter Details Date Type Department Care Team (Late st Contact Info) Description 02/11/2024 Telephone [facility] Urology - [facility] [address] [place], [place] [phone] Evelin Pino RN FMLA Paperwork Social History Tobacco Use Types Packs/Day Years [...] encounter Miscellaneous Notes * Telephone Encounter - Ulises Zavala MA - 02/21/2024 1208 EDT FMLA has been completed, awaiting signature of provider. ULISES ZAVALA MA 02/21/2024 12:09 * Telephone Encounter - Ulises Zavala MA - 02/20/2024 1630 EDT Received FMLA. ULISES ZAVALA MA 02/20/2024 16:31 * Telephone Encounter - Evelin Pino RN - 02/11/2024 1417 EDT See post op call 02/11/2024 documented in this encounter Plan of Treatment Upcoming Encounters Date Type Department Care Team (Late st Contact Info) Description 08/17/2024 11:00 EDT Appointment [facility] [address] [id number] Lab, E&I 08/17/2024 13:00 EDT Office Visit [facility] Urology [address] [phone] Gil Bright MD [address] [facility], [address] [place] [address] documented as of this encounter Visit Diagnoses Not on filedocumented in this encounter Care Teams Food Handler Relationship Specialty Start Date End Date Suyapa Armendariz NP [address] [place] [address] PCP - General Family Medicine - Primary Care 07/23/23 02/11/24 Nannette Jeffers FNP [address] [place] [phone] PCP - General Family Medicine - Primary Care 02/12/24 documented as of this encounter
--- OUTSIDE RECORDS SUMMARY | 2024-05-14 17:06 | XMS_ITS | Encounter Summary ---
Author Organization [facility] Address [address] [place] [address] Care Team Providers Care Crt Name Role Phone None, Provider Primary Care Provider Suyapa Lopez NP Primary Care Provider [phone] Nannette JeffersP Primary Care Provider [phone] Encounter Details Date Type Department Care Team (Late st Contact Info) Description 07/29/2021 Lab Requisition [facility] Pathology & Laboratory Medicine [address] [id number] Outr Resulting Lab, Provider Social History Tobacco Use Types Packs/Day Years [...] Contact Info) Description 08/17/2024 11:00 EDT Appointment [facility] [address] [phone] Lab, E&I 08/17/2024 13:00 EDT Office Visit [facility] Urology - [address] [phone] Gil Bright MD [address] [place] [address], [address] [place] [address] documented as of this encounter Procedures Procedure Name Priority Date/Time Associated Diagnosis Comments HEPATITIS C AB W REFLEX TO HCV RNA BY PCR Routine 07/28/2021 11:40 EST documented in this encounter Results * HEPATITIS C AB W REFLEX TO HCV RNA BY PCR (07/28/2021 11:40 EST) Hep C Antibody Negative Negative 07/31/2021 10:25 EST [facility] Blood VENOUS BLOOD / Unknown 07/28/2021 11:40 EST 07/30/2021 15:59 EST us Provider Outr Resulting Lab CHEMISTRY & BLOOD GA S ORDERABLES Final Result [facility] [address] [place] [address] documented in this encounter Visit Diagnoses Not on filedocumented in this encounter Care Teams Crt Relationship Specialty Start Date End Date None, Provider PCP - General 06/23/13 07/22/23 Suyapa Armendariz NP [address] [place] [address] PCP - General Family Medicine - Primary Care 07/23/23 02/11/24 Nannette Jeffers FNP [address] [place] [phone] PCP - General Family Medicine - Primary Care 02/12/24 documented as of this encounter
--- OUTSIDE RECORDS SUMMARY | 2024-05-14 17:06 | XMS_ITS | Encounter Summary ---
Author Organization [facility] Address [address] [place] [address] Care Team Providers Care Regional Loss Prevention Manager Name Role Phone None, Provider Primary Care Provider Suyapa Lopez NP Primary Care Provider [phone] Nannette JeffersP Primary Care Provider [phone] Encounter Details Date Type Department Care Team (Late st Contact Info) Description 07/29/2021 Lab Requisition [facility] Pathology & Laboratory Medicine [address] [phone] Outr Resulting Lab, Provider Social History Tobacco [...] Contact Info) Description 08/17/2024 11:00 EDT Appointment [facility] [address] [phone] Lab, E&I 08/17/2024 13:00 EDT Office Visit [facility] Urology - [address] [phone] Gil Bright MD [address] [place] [address], [address] [place] [address] documented as of this encounter Procedures Procedure Name Priority Date/Time Associated Diagnosis Comments HIV 1/2 ANTIGEN AND ANTIBODY, 4TH GENERATION Routine 07/28/2021 11:40 EST documented in this encounter Results * HIV 1/2 ANTIGEN AND ANTIBODY, 4TH GENERATION (07/28/2021 11:40 EST) HIV 1 and 2 Antibody/p24 Antigen, 4th Generation Negative Negative 07/31/2021 11:25 EST [facility] Comment:If acute HIV-1 infec tion is suspected in a high risk patient, submit plasma specimen for HIV-1 RNA quantitation test. Blood VENOUS BLOOD / Unknown 07/28/2021 11:40 EST 07/30/2021 15:59 EST Narrative [facility] - 07/31/2021 11:25 EST Fourth Generation assay performed on the Siemens Centaur XPT. us Provider Outr Resulting Lab IMMUNOLOGY AND SEROL OGY ORDERABLES Final Result [facility] [address] [place] [address] documented in this encounter Visit Diagnoses Not on filedocumented in this encounter Care Teams Regional Loss Prevention Manager Relationship Specialty Start Date End Date None, Provider PCP - General 06/23/13 07/22/23 Suyapa Armendariz NP [address] [place], [place] [address] PCP - General Family Medicine - Primary Care 07/23/23 02/11/24 Nannette Jeffers FNP [address] [place] [phone] PCP - General Family Medicine - Primary Care 02/12/24 documented as of this encounter
--- OUTSIDE RECORDS SUMMARY | 2024-05-14 17:06 | XMS_ITS | Encounter Summary ---
Author Organization [facility] Address [address] [place] [address] Care Team Providers Care Anglesmith Helper Name Role Phone Suyapa Armendariz NP Primary Care Provider [phone] Reason for Visit * Reason Onset Date Comments Discuss Surgery 02/06/2024 Encounter Details Date Type Department Care Team (Late st Contact Info) Description 02/06/2024 Telephone [facility] Urology - [facility] [address] [place] [address] Gil Bright MD 111 [facility], [address] [place] [address] Discuss Surgery Social History Tobacco Use Types Packs/Day Years [...] encounter Miscellaneous Notes * Telephone Encounter - TovarLou - 02/06/2024 1618 EDT Spoke with Troy Schumacher to confirm his surgery on 02/10/24 at 11:[address] Bright. He was instructed to check in at 9:15 in registration. A milk truck driver is required. Prep for Surgery: Have no solid food or liquids containing fats, including milk*, after midnight before your procedure. On the day of your procedure, you should only have clear liquids until 2 hours before the scheduledarrival time to the hospital. Acceptable Liquids Water Clear apple juice Clear white grape juice Clear sports drinks Patient would like it noted that he doesn't want nurse Katelyn Schumacher involved with his care while he is at [facility]. documented in this encounter Plan of Treatment Upcoming Encounters Date Type Department Care Team (Late st Contact Info) Description 08/17/2024 11:00 EDT Appointment [facility] [address] [phone] Lab, E&I 08/17/2024 13:00 EDT Office Visit [facility] Urology [address] [phone] Gil Bright MD [address] [place] [address], [address] [place] [phone] documented as of this encounter Visit Diagnoses Not on filedocumented in this encounter Care Teams Anglesmith Helper Relationship Specialty Start Date End Date Suyapa Armendariz NP [address] [place] [address] PCP - General Family Medicine - Primary Care 07/23/23 02/11/24 documented as of this encounter
--- OUTSIDE RECORDS SUMMARY | 2024-05-14 17:06 | XMS_ITS | Encounter Summary ---
Author Organization [facility] Address [address] [place] [address] Care Team Providers Care Felt Tipping Machine Tender Name Role Phone Suyapa Armendariz NP Primary Care Provider [phone] Reason for Visit * Auth/Cert (Routine) Specialty Diagnoses / Procedures Referred By Contac t Referred To Contact Diagnoses Scrotal pain Procedures OH VASOVASOSTOMY VASOVASORRHAPHY VASOVASOSTOMY Referral ID Status Reason Start Date Expiration Date Visits Re quested Visits Authorized [id number] 1 1 Encounter Details Date Type Department Care Team (Late st Contact Info) Description 02/10/2024 13:21 EDT Anesthesia Event [facility] [place] [facility] [address] [place], [place] [phone] Serena Pérez, [address] [phone] Abdirashid Viveros MD [address] [phone] Anesthesia Record Procedure Summary Procedure Name Responsible Anesthesiologist Anesthesia Start Time Anesthesia Stop Time VASOVASOSTOMY (Bilateral: Scrotum) Serena Pérez DO 02/10/24 1321 02/10/24 1825 Events Date Time Event Comment 02/10/2024 1321 An Start The patient was re-evaluated immediately before moderate or deep sedation use, before anesthesia induction, or before the anesthesia procedure. 1321 An Start Data 1328 An Induction The patient was reevaluated immediately before moderate or deep sedation use and before anesthesia induction. 1335 An Intubation 1347 Anesthesia Ready 1654 Primary Handoff Primary Anes thesia Provider relieved. Anesthesia care handoff involved joint review of the surgical site and planned procedure, significant past medical history, intraoperative course including but not limited to airway management, anesthetic maintenance, monitors, IV access, fluid management, and postoperative plan. 1816 An Extubation Procedure comp leted, airway suction, pt extubated, vss. FM 8 L/min O2, pt to pacu, report to rn, transfer of care. 182 an stop data 1824 Handoff to RN I completed my handoff to the receiving nurse during which we: 1. Identified the patient 2. Identified the responsible provider 3. Reviewed the pertinent medical history 4. Discussed the surgical course 5. Reviewed intra-op anesthesia management and issues during anesthesia 6. Set expectations for post-procedure period 7. Allowed opportunity for questions and acknowledgement of understanding. 1824 An Stop Meds Name Total dexaMETHasone (DECADRON) injection 4 mg/ mL (for IV doses up to 10mg) 8 mg fentanyl citrate (PF) injection 100 mcg ketAMINE 5 mL prefilled syringe 25 mg midazolam (versed) 1 mg/mL 2 mL vial 2 m g ondansetron (PF) (ZOFRAN) injection 4 mg lidocaine 2% (PF) injection glass vial 6 0 mg propOFol (DIPRIVAN) injection 2,277,145. 6 mcg rocuronium 10 mg/mL vial 50 mg sugammadex 100 mg/mL 2 mL vial 200 mg ceFAZolin (ANCEF) syringe 2 g 2 g ceFAZolin syringe 2 g prefilled syringe 2,000 mg metoprolol injection 4 mg ketOROLAC injection 30 mg lactated ringers (LR) infusion 1,000 mL [id number] solution 400 mL * Agents Name Insp Sevoflurane Exp Sevoflurane O2 N2O Air * Blood No blood administrations on file. Lines, Drains, and Airways Type Details Placement Removal Wound 02/10/24; 1401; Inci norberto; Penis; incision s/p vasovasostomy; N 02/10/24 1401 by Janett Shine, DAVID Peripheral IV 02/10/24; 0937; 20; Posterior, Right; Hand; 1; 02/10/24; 1940; Discharged; No complications 02/10/24 0937 by Gianna Weathers RN 02/10/24 1940 by Taz Lemus RN Non-Surgical Airway 02/10/24; 1401 (kyara santos via procedure documentation); 02/10/24; 181502/10/24 1401 by Abdirashid Viveros MD 02/10/24 181 by Gelacio Ortega AA documented in this encounter Social History Tobacco [...] OR Notes * Anesthesia Postprocedure Evaluation - Gelacio Ortega AA - 02/10/2024 1825 EDT Patient: Troy Schumacher Vital signs were reviewed with the recovery nurse. Complete vitals history is available in the Epicflowsheets. Vitals Value Taken Time BP 127/72 02/10/24 1824 Temp 36.6 02/10/24 1825 Resp 34 02/10/24 1825 Pulse From Oximetry 87 BPM 02/10/24 1825 SpO2 97 % 02/10/24 1825 Heart Rate 87 BPM 02/10/24 182 Vitals shown include unfiled device data. Last Pain Score - Type of Anesthesia - general Anesthesia Post Evaluation Post-procedure vitals reviewed and are stable. Level of consciousness: sedated Temperature status: normothermia Respiratory status: airway patent, face mask, stable and oral airway in place Cardiovascular status: acceptable Hydration status: adequate Nausea/Vomiting: none Pain management: adequate Post-Op Assessment: patient tolerated procedure well with no complications Disposition: outpatient/home Anesthesia Complications: No apparent anesthesia complications * Anesthesia Preprocedure Evaluation - Abdirashid Viveros MD - 02/10/2024 1403 EDT Anesthesia Preprocedure Evaluation Patient Medical History, including Anesthesia History reviewed. Chart and Nursing Notes reviewed, including NPO status and Medication History. Additional ROS/History Findings: No Known Allergies Review of Systems Past Medical History: Diagnosis Date Back pain [...] months Wears glasses Noted 01/31/2024: and contacts Relevant Problems No relevant active problems Physical Exam Airway Mallampati: II TM distance: >3 FB Neck ROM: full Cardiovascular Dental Pulmonary Abdominal (+) obese Other findings: Full avelar Anesthesia Plan ASA 2 Anesthesia Type - general Anesthesia plan and risks discussed. Informed consent obtained from patient. Code status discussed? No The preoperative history and physical which was performed within 30 days of this procedure, has been reviewed and the clinically appropriate elements of the physical examination have been repeated. There are no changes to the documented history and physical or, if so, such changes are documented inthis note PAT Note Notes from 01/11/24 through 02/10/24 No notes of this type exist for this encounter. * Anesthesia Procedure Notes - Abdirashid Viveros MD - 02/10/2024 9388 EDTAssociated Order(s): Airway Airway Date/Time: 02/10/2024 13:35 Urgency: elective General Information and Staff Patient location during procedure: OR Performed: anesthesiologist Performed by: Abdirashid Viveros MD Authorized by: Abdirashid Viveros MD Indications and Patient Condition Indications for airway management: anesthesia Sedation level: GA Preoxygenated: yes Patient position: sniffing Ventilation assessment: 1 - Easy and 0 - not attempted Final Airway Details Final airway type: endotracheal airway Successful airway: ETT Cuffed: yes Successful intubation technique: video laryngoscopy Patricio Facilitating devices/methods: intubating stylet Endotracheal tube insertion site: oral Blade size: #4 ETT size (mm): 7.5 Placement verified by: chest auscultation and capnometry Measured from: teeth Number of attempts at approach: 1 Additional Comments 1 attempt at auragain LMA # 5, repeated with poor ventlation, 50 rj given , still with big leak and poor ventilation,changed to Patricio 4 with 7.5 ETT with stylett, 1 attempt documented in this encounter Plan of Treatment Upcoming Encounters Date Type Department Care Team (Late st Contact Info) Description 08/17/2024 11:00 EDT Appointment [facility] [address] [phone] Lab, E&I 08/17/2024 13:00 EDT Office Visit [facility] Urology [address] [phone] Gil Bright MD [address] [place] [address], [address] [place] [address] documented as of this encounter Procedures Procedure Name Priority Date/Time Associated Diagnosis Comments ANESTHESIA INTUBATION Routine 02/10/2024 13:35 EDT documented in this encounter Results * OH AN ELECTIVE ENDOTRACHEAL AIRWAY (02/10/2024 13:35 EDT) Narrative [facility] - 02/10/2024 13:35 EDT Abdirashid Viveros MD ? 02/10/2024 14:01 Airway Date/Time: 02/10/2024 13:35 Urgency: elective General Information and Staff Patient location during procedure: OR Performed: anesthesiologist Performed by: Abdirashid Viveros MD Authorized by: Abdirashid Viveros MD ?? Indications and Patient Condition Indications for airway management: anesthesia Sedation level: GA Preoxygenated: yes Patient position: sniffing Ventilation assessment: 1 - Easy and 0 - not attempted Final Airway Details Final airway type: endotracheal airway Successful airway: ETT Cuffed: yes Successful intubation technique: video laryngoscopy Patricio Facilitating devices/methods: intubating stylet Endotracheal tube insertion site: oral Blade size: #4 ETT size (mm): 7.5 Placement verified by: chest auscultation and capnometry Measured from: teeth Number of attempts at approach: 1 Additional Comments 1 attempt at auragain LMA # 5, repeated with poor ventlation, 50 rj given , still with big leak and poor ventilation,changed to Patricio 4 with 7.5 ETT with stylett, 1 attempt Abdirashid Viveros MD ANESTHESIA ORDERABLE S Final Result Performing Organization Address City/State/[facility] Co de Phone Number [facility] POINT OF CARE documented in this encounter Visit Diagnoses Not on filedocumented in this encounter Administered Medications Inactive Administered Medications - up to 3 most recent administrations Medication Order MAR Action Action Date Dose Rate Site ceFAZolin (ANCEF) syringe 2 g 2 g, intravenous, Administer over 10 Minutes, PRE-OP ONCE, 1 dose, On Sat02/10/24 at 0930, Type of Therapy: Prophylaxis, Suspected Indication (Select all that apply): Surgical prophylaxis, Routine, Preprocedure Given 02/10/2024 13:47 EDT 2 g ceFAZolin (ANCEF) syringe intraperitoneal, Administer over 5 Minutes, PRN, Starting on Sat02/10/24 at 1645, Until Sat02/10/24 at 1825, Routine, Anesthesia Intraprocedure Given 02/10/2024 16:45 EDT 2,000 mg dexAMETHasone (DECADRON) injection intravenous, PRN, Starting on Sat02/10/24 at 1356, Until Sat02/10/24 at 1825, Routine, Anesthesia Intraprocedure Given 02/10/2024 13:56 EDT 8 mg electrolyte-A (PLASMALYTE-A) solution intravenous, FA IP EQF CONTINUOUS PRN FOR ONE STEP MEDS, Starting on Sat02/10/24 at 1551, Until Sat02/10/24 at 1825, Routine, Anesthesia Intraprocedure New Bag 02/10/2024 15:51 EDT New Bag 02/10/2024 15:41 EDT fentaNYL citrate (PF) injection intravenous, PRN, Starting on Sat02/10/24 at 1446, Until Sat02/10/24 at 1825, Routine, Anesthesia Intraprocedure Given 02/10/2024 14:46 EDT 100 mcg ketAMINE in NaCl, iso-osmotic (KETALAR) 50 mg/5 mL (10 mg/mL) IV injection intravenous, PRN, Starting on Sat02/10/24 at 1328, Until Sat02/10/24 at 1825, Routine, Anesthesia Intraprocedure Given 02/10/2024 13:28 EDT 25 mg ketOROLAC (TORADOL) injection intravenous, PRN, Starting on Sat02/10/24 at 1747, Until Sat02/10/24 at 1825, Routine, Anesthesia Intraprocedure Given 02/10/2024 17:47 EDT 30 mg lactated ringers (LR) infusion intravenous, FA IP EQF CONTINUOUS PRN FOR ONE STEP MEDS, Starting on Sat02/10/24 at 1208, Until Sat02/10/24 at 1825, Routine, Anesthesia Intraprocedure New Bag 02/10/2024 15:42 EDT New Bag 02/10/2024 12:08 EDT lidocaine (PF) 20 mg/mL (2 %) injection intravenous, PRN, Starting on Sat02/10/24 at 1328, Until Sat02/10/24 at 1825, Routine, Anesthesia Intraprocedure Given 02/10/2024 13:28 EDT 60 mg metoprolol TARtrate (LOPRESSOR) injection intravenous, PRN, Starting on Sat02/10/24 at 1356, Until Sat02/10/24 at 1825, Routine, Anesthesia Intraprocedure Given 02/10/2024 14:48 EDT 1 mg Given 02/10/2024 14:21 EDT 1 mg Given 02/10/2024 14:04 EDT 1 mg midazolam (PF) (VERSED) injection intravenous, PRN, Starting on Sat02/10/24 at 1324, Until Sat02/10/24 at 1825, Routine, Anesthesia Intraprocedure Given 02/10/2024 13:24 EDT 2 mg ondansetron (PF) (ZOFRAN) injection intravenous, PRN, Starting on Sat02/10/24 at 1745, Until Sat02/10/24 at 1825, Routine, Anesthesia Intraprocedure Given 02/10/2024 17:45 EDT 4 mg propOFol (DIPRIVAN) injection intravenous, FA IP EQF CONTINUOUS PRN FOR ONE STEP MEDS, Starting on Sat02/10/24 at 1347, Until Sat02/10/24 at 1825, Routine, Anesthesia Intraprocedure Rate Change 02/10/2024 16:17 EDT 66 mcg/kg/min 43.996 mL/hr New Bag 02/10/2024 13:47 EDT 77 mcg/kg/min 51.328 mL/hr Given 02/10/2024 13:34 EDT 50 mg rocuronium (ZEMURON) injection intravenous, PRN, Starting on Sat02/10/24 at 1329, Until Sat02/10/24 at 1825, Routine, Anesthesia Intraprocedure Given 02/10/2024 13:29 EDT 50 mg sugammadex (BRIDION) injection intravenous, PRN, Starting on Sat02/10/24 at 1749, Until Sat02/10/24 at 1825, Routine, Anesthesia Intraprocedure Given 02/10/2024 17:49 EDT 200 mg documented in this encounter Care Teams Felt Tipping Machine Tender Relationship Specialty Start Date End Date Suyapa Armendariz NP [address] [place] [address] [place] [address] PCP - General Family Medicine - Primary Care 07/23/23 02/11/24 documented as of this encounter
--- OUTSIDE RECORDS SUMMARY | 2024-05-14 17:06 | XMS_ITS | Encounter Summary ---
Author Organization [facility] [place] [address] Care Team Providers Care Glass Crusher Name Role Phone Svetlana Buckley MD Primary Care Provider [phone] Reason for Visit * Reason Onset Date Comments Appointment 02/04/2020 Encounter Details Date Type Department Care Team (Late st Contact Info) Description 02/04/2020 Telephone [place] [phone] Carlos Andrew MD Appointment Social History Tobacco Use Types Packs/Day Years [...] encounter Miscellaneous Notes * Telephone Encounter - Uma Tim - 03/15/2020 11:47 AM EDT Pt scheduled per Nicole * Telephone Encounter - Uma Tim - 02/04/2020 1:49 PM EDT Pt called back to reschedule his cancelled appointment with Dm- pt would like to reschedule this for Saturday of next week - please contact pt back to reschedule documented in this encounter Plan of Treatment Not on file documented as of this encounter Visit Diagnoses Not on filedocumented in this encounter Care Teams Glass Crusher Relationship Specialty Start Date End Date Svetlana Buckley MD [facility] [place] [address] PCP - General 04/18/10 documented as of this encounter
--- OUTSIDE RECORDS SUMMARY | 2024-05-14 17:06 | XMS_ITS | Encounter Summary ---
Author Organization [facility] Address [address] [place] [address] Care Team Providers Care Dry Goods Inspector Name Role Phone Suyapa Armendariz NP Primary Care Provider [phone] Reason for Visit * Reason Onset Date Comments Surgery Scheduling 11/07/2023 Encounter Details Date Type Department Care Team (Late st Contact Info) Description 11/07/2023 Telephone [facility] Urology - [address] [address] Gil Bright MD [address] [facility], [address] [place] [address] Surgery Scheduling Social History Tobacco Use Types Packs/Day Years [...] encounter Miscellaneous Notes * Telephone Encounter - Lou Tovar - 11/08/2023 1125 EDT Spoke with the patient to answer his questions about surgery. * Telephone Encounter - Joan Diaz - 11/07/2023 1636 EDT Patient calling. Has more questions: Can this be an outpatient procedure? (no overnight stay) When would surgery be scheduled ? Is total amount due by end of procedure or is there a payment plan? Has not located the financial agreement that was supposed to be sent. Please call , Johanne, to discuss all of above. * Telephone Encounter - Lou Tovar - 11/07/2023 1219 EDT Spoke with the patient to discuss scheduling surgery with Dr. Bright. He will speak with his and call back when ready to schedule. A copy of the financial agreement has been sent to the patient through [employer]. documented in this encounter Plan of Treatment Upcoming Encounters Date Type Department Care Team (Late st Contact Info) Description 08/17/2024 11:00 EDT Appointment [facility] [address] [id number] Lab, E&I 08/17/2024 13:00 EDT Office Visit [facility] Urology [address] [id number] Gil Bright MD [address] [place] [address], [address] [place] [id number] documented as of this encounter Visit Diagnoses Not on filedocumented in this encounter Care Teams Dry Goods Inspector Relationship Specialty Start Date End Date Suyapa Armendariz NP [address] [place] [address] PCP - General Family Medicine - Primary Care 07/23/23 02/11/24 documented as of this encounter
--- OUTSIDE RECORDS SUMMARY | 2024-05-14 17:06 | XMS_ITS | Encounter Summary ---
[place] [address] Care Team Providers Care Electronic Coils Supervisor Name Role Phone Svetlana Buckley MD Primary Care Provider [phone] Reason for Visit * Auth/Cert Specialty Diagnoses / Procedures Referred By Shasha concepcion Referred To Contact Diagnoses Retinal Detachment, left eye Procedures PRO REPAIR DETACH RETINA,W VITRECTOMY REPAIR RETINAL DETACHMENT W/ VITRECTOMY, SCLERAL BUCKLE; AIR,GAS,OIL,LASER,CRYO (WRVU 15.19) Referral ID Status Reason Start Date Expiration Date Visits Re quested Visits Authorized [id number] 1 1 Encounter Details Date Type Department Care Team (Latest Contact Info) Description 01/29/2020 6:42 AM EDT - 01/29/2020 1:31 PM EDT Hospital En[place] [address] Carlos Andrew MD Left retinal detachment Discharge Disposition: Home Social History Tobacco Use Types Packs/Day Years [...] Sign Reading Time Taken Comments Blood Pressure 93/49 01/29/2020 12:45 PM EDT Pulse 73 01/29/2020 11:16 AM EDT Temperature 36.6 ??C (97.9 ??F) 01/29/2020 1 1:16 AM EDT Respiratory Rate 16 01/29/2020 12:1 5 PM EDT Oxygen Saturation 96% 01/29/2020 12: 45 PM EDT Inhaled Oxygen Concentration - - Weight 86.1 kg (189 lb 14.4 oz) 01/29/2020 7:10 AM EDT Height 180.3 cm (5' 11) 01/29/2020 7:10 AM EDT Body Mass Index 26.49 01/29/2020 7:10 AM EDT documented in this encounter Discharge Instructions * Patient Instructions* Carlos Andrew MD - 01/29/2020 8:28 AM EDT DROPS: Operated eye: Please keep the patch on the operated eye and do NOT use any eye drops. You will start them right after your post-op day 1 exam. Non- operated eye: Please continue all the eye drops (if any) as previously instructed POSITIONING: Please keep a face down position for ~50-55 mins/hour while awake. It's ok to take a ~5- 10 minute break every hour. Please sleep on your RIGHT side with the RIGHT cheek touching the pillow WARNING SYMPTOMS People frequently feel mild-moderate discomfort that improves within a few days. Eyelid edema and redness are also common for a few weeks. However, if you feel new pain, tenderness, light sensitivity and vision loss please call the [facility] telephone center ([phone]) immediately and speak to the ad setter wilton weaver. PAIN May use over the counter pain medications as needed (Tylenol 1000mg- up to 3 times daily) alternating with ibuprofen (600mg up to 3 times per day) EYE SHIELD: Keep eye shield on the eye overnight. OTHERS Avoid lifting heavy weights for 1 week (i.e. Not more than 5-10 lbs) Avoid high impact activities (e.g. Weight lifting, running) for at least 1 week Avoid straining- valsalva, retching, vomiting, coughing as much as possible FLIGHTS: Do NOT take any flights until you discuss it with your doctor. There's severe risk for the eye if you're in areas of high altitude (flight, very tall mountains etc) documented in this encounter Progress Notes * Gary Still RN - 01/29/2020 1:06 PM EDT Discharge order given to patient and farther had no questions at this time. documented in this encounter H&P Notes * Carlos Andrew MD - 01/29/2020 8:13 AM EDT Patient Name: Troy Schumacher Patient Age: 29 y.o. Birthdate: 1990 Admit date: 01/29/2020 Attending Physician: Carlos Andrew MD Subjective: Troy Schumacher is a 29 y.o. male with retinal detachment, left eye Review of Systems Pertinent items are noted in HPI. Objective: BP 126/71 (BP Location (NBP): Right arm) Pulse 63 Temp 36.2 ??C (97.2 ??F) (Temporal) Resp 16 Ht 180.3 cm (5' 11) Wt 86.1 kg (189 lb 14.4 oz) SpO2 100% BMI 26.49 kg/m?? General: alert, appears stated age and cooperative Skin: normal Eyes: conjunctivae/corneas clear. PERRL, EOM's intact. Fundi benign. Mouth: MMM no lesions Lymph Nodes: Cervical, supraclavicular, and axillary nodes normal. Lungs: clear to auscultation bilaterally Heart: RRR Abdomen: deferred CVA: deferred Genitourinary: deferred Extremities: deferred Neurologic: deferred Psychiatric: deferred Assessment: Retinal detachment, left eye Plan: Proceed with surgical repair. This is Low risk patient for a low risk procedure documented in this encounter Miscellaneous Notes * Op Note - Carlos Andrew MD - 01/29/2020 8:28 AM EDT [facility] Operative Note Patient Name: Troy Schumacher : [id number] MR#: [id number] Case Date: 01/29/2020 Surgeon: Surgeon(s) and Role: * Carlos Andrew MD - Primary Preoperative diagnosis: Retinal Detachment, left eye Postoperative diagnosis: Retinal Detachment, left eye Procedure(s) (LRB): REPAIR RETINAL DETACHMENT W/ VITRECTOMY, SCLERAL BUCKLE; AIR,GAS,OIL,LASER,CRYO (WRVU 15.19) (Left) Anesthesia: General Estimated Blood Loss: * No values recorded between 01/29/2020 12:00 AM and 01/29/2020 8:28 AM * Specimens removed during surgery: None Drains: * No LDAs found * Surgical Closure: Primary Closure - skin incision is completely closed without any wires, tosha, drains or other devices Disposition: awakened from anesthesia, extubated and taken to the recovery room in a stable condition, having suffered no apparent untoward event. Condition: doing well without problems (Please see the Surgical Encounter Summary for any Implant and Specimen details pertinent to this patient.) HPI/Surgical Indications: Retinal Detachment, left eye Procedure Description: DESCRIPTION OF PROCEDURE: The patient was brought to the operative suite at the [facility] where a time-out was done to confirm correct eye, correct patient, and correct procedure. The left eye was prepped and draped in the normal sterile fashion for intraocular surgery and a wire lid speculum was used throughout the case to retract the eyelids. General anesthesia was induced and maintained throughout the case without complications. Using blunt Perry scissors and tooth forceps, a 360 conjunctival peritomy was made without complication. The dissection was carried down to bare sclera in each of the four scleral quadrants. Each of the four rectus muscles was isolated and tied off using 2-0 silk ties. The four scleral quadrants were examined and found to be of normal thickness and caliber. A 240/ 4mm scleral buckle band (aka 42 band) was passed underneath each of the four recti muscles and joined in the superonasal quadrant using a 3.75mm Watzke sleeve. The buckle was secured to the bare sclera using 5-0 nylon sutures witha horizontal mattress stitch. The buckle was tightened to an appropriate level allowing for good indentation and imbrication of the sclera. It was trimmed appropriately before the end of the case. Attention was then turned to the vitrectomy portion of the case. Using the Luis 25-gauge vitrectomy system, trocars were placed in the inferotemporal, superotemporal and superonasal quadrants approximately 4 mm from the limbus. An infusion cannula was placed in the inferotemporal quadrant and its position was confirmed by direct visualization with the light pipe before it was turned on. Using the vitrector and the light pipe, the eye was entered and close examination of the fundus revealed vitreous hemorrhage, posterior vitreous detachment, retinal detachment from 12:00 to 5:00, and horse-shoe tears at 130 (large, ~1.5 clock hour) ,3:30, 4:30 and 5:30. A 360 core vitrectomy was performed and the vitreous blood was removed. The posterior vitreous was already detached and the vitreous base was shaved out to the periphery while the SB was depressing the sclera. PFCL was injected and fluid- air exchange was performed until the retina was reattached. Laser retinopexy was performed (1657 spots, 200-300mw, 100ms). Fluid- air exchange was performed using 20% SF6. Using the Barraquer tonometer the IOP was found to be around 15mmHg. Each of the trocars was removed sequentially and the sclerotomies were closed using interrupted 8-0vicryl sutures. The silk ties used to isolate the muscles were removed. The conjunctiva and tenons were reapproximated to the limbus using additional interrupted 6-0 plain gut sutures. Subconjunctival dexamethasone was applied followed by a guille-bulbar block consisting of 0.75% Bupivacaine. Each of the trocars was removed sequentially, the sclerotomies were closed with 8-0 vicryl suture and the eye was left adequately pressurized, air and watertight. Subconjunctival injection of cefazolin (100mg/0.3ml) and dexamethasone (2mg/0.5ml) as well as a peribulbar injection of marcaine 0.75% wa s given. A drop of vigamox and dexacine ointment were applied on the eye followed by a patch and shield. The patient was awoken from general anesthesia, positioned appropriately immediately after extubation to tamponade the retina as needed, and brought to the recovery room in stable condition. Ketorolac 30mg IV once was administered for pain control. They have follow up in the retina clinic in 1day. Infection Bundle used? No Attestation: Case Date: 01/29/2020 I performed this procedure without the involvement of a resident. Carlos Andrew MD 01/29/2020 documented in this encounter Plan of Treatment Not on file documented as of this encounter Procedures Procedure Name Priority Date/Time Associated Diagnosis Comments Repair Detach Retina, W Vitrectomy (668[address]) Yes 01/29/2020 8:28 AM EDT Left retinal detachment VITRCTMY W/WO SCLER HOWARD FOR RETINAL DETACH W/WO AIR/GAS/LASER/CRYO Routine 01/29/2020 6:52 AM EDT Left retinal detachment IMPLANTABLE DEVICES SCAN 01/29/2020 12:00 AM EDT documented in this encounter Results * SCAN DOC: IMPLANTABLE DEVICES (01/29/2020 12:00 AM EDT) Narrative 01/29/2020 12:00 AM EDT Ordered by an unspecified provider. Scanning Provider MEDIA MGR SCAN EXT O RDR/RSLT documented in this encounter Visit Diagnoses Diagnosis Left retinal detachment- Primary Unspecified retinal detachment documented in this encounter Admitting Diagnoses Diagnosis Left retinal detachment Unspecified retinal detachment documented in this encounter Administered Medications Inactive Administered Medications - up to 3 most recent administrations Medication Order MAR Action Action Date Dose Rate Site acetaminophen (Tylenol) tablet 650 mg 650 mg, Oral, EVERY 4 HOURS PRN, Starting on Sat01/29/20 at 1112, Until Sat01/29/20 at 1531, Pain, for MILD pain (1-3), Do not exceed 4,000 mg in 24 hours, Routine Given 01/29/2020 1:11 PM EDT 650 mg atropine 1 % ophthalmic solution 1 drop 1 drop, Left Eye, EVERY 5 MIN, 3 doses, First dose on Sat01/29/20 at 0730, Last dose on Sat01/29/20 at 0740, Day of Surgery (Day of Procedure), Routine Given 01/29/2020 7:37 AM EDT 1 drop Given 01/29/2020 7:32 AM EDT 1 drop Given 01/29/2020 7:24 AM EDT 1 drop moxifloxacin (VIGAMOX) 0.5 % ophthalmic solution 1 drop 1 drop, Left Eye, EVERY 5 MIN, 3 doses, First dose on Sat01/29/20 at 0730, Last dose on Sat01/29/20 at 0740, Day of Surgery (Day of Procedure), Routine Given 01/29/2020 7:37 AM EDT 1 drop Given 01/29/2020 7:33 AM EDT 1 drop Given 01/29/2020 7:26 AM EDT 1 drop PHENYLephrine (MYDFRIN) 2.5 % ophthalmic solution 1 drop 1 drop, Left Eye, EVERY 5 MIN, 3 doses, First dose on Sat01/29/20 at 0730, Last dose on Sat01/29/20 at 0740, Day of Surgery (Day of Procedure), Routine Given 01/29/2020 7:37 AM EDT 1 drop Given 01/29/2020 7:33 AM EDT 1 drop Given 01/29/2020 7:27 AM EDT 1 drop prednisoLONE acetate (PRED FORTE) 1 % ophthalmic suspension 1 drop 1 drop, Left Eye, ONCE, 1 dose, On Sat01/29/20 at 0730, Day of Surgery (Day of Procedure), Routine Given 01/29/2020 7:28 AM EDT 1 drop documented in this encounter Active and Recently Administered Medications Times are shown in EDT. Scheduled Medication Order 01/27/2020 01/28/2020 01/29/2020 atropine 1 % ophthalmic solution 1 drop (COMPLETED) 1 drop, Left Eye, EVERY 5 MIN, 3 doses, First dose on Sat01/29/20 at 0730, Last dose on Sat01/29/20 at 0740, Day of Surgery (Day of Procedure), Routine 723 (Given - Provid er: Kimani Rossi RN)0732 (Given - Provider: Kimani Rossi RN)0737 (Given - Provider: Kimani Rossi RN) moxifloxacin (VIGAMOX) 0.5 % ophthalmic solution 1 drop (COMPLETED) 1 drop, Left Eye, EVERY 5 MIN, 3 doses, First dose on Sat01/29/20 at 0730, Last dose on Sat01/29/20 at 0740, Day of Surgery (Day of Procedure), Routine 07 (Given - Provid er: Kimani Rossi RN)0733 (Given - Provider: Kimani Rossi RN)0737 (Given - Provider: Kimani Rossi RN) PHENYLephrine (MYDFRIN) 2.5 % ophthalmic solution 1 drop (COMPLETED) 1 drop, Left Eye, EVERY 5 MIN, 3 doses, First dose on Sat01/29/20 at 0730, Last dose on Sat01/29/20 at 0740, Day of Surgery (Day of Procedure), Routine 726 (Given - Provid er: Kimani Rossi RN)0733 (Given - Provider: Kimani Rossi RN)0737 (Given - Provider: Kimani Rossi RN) prednisoLONE acetate (PRED FORTE) 1 % ophthalmic suspension 1 drop (COMPLETED) 1 drop, Left Eye, ONCE, 1 dose, On Sat01/29/20 at 0730, Day of Surgery (Day of Procedure), Routine 727 (Given - Provid er: Kimani Rossi RN) PRN Medication Order 01/27/2020 01/28/2020 01/29/2020 acetaminophen (Tylenol) tablet 650 mg 650 mg, Oral, EVERY 4 HOURS PRN, Starting on Sat01/29/20 at 1112, Until Sat01/29/20 at 1531, Pain, for MILD pain (1-3), Do not exceed 4,000 mg in 24 hours, Routine 1311 (Given - Provid er: Gary Still RN) balanced salt (BSS PLUS) irrigation solution (CANCELED) ONCE PRN, Starting on Sat01/29/20 at 0903, Until Sat01/29/20 at 1531, Intra-Operative (Intra-Procedure), Routine 09 (Given - Provid er: Carlos Andrew MD) balanced salt (BSS) irrigation solution (CANCELED) ONCE PRN, Starting on Sat01/29/20 at 0903, Until Sat01/29/20 at 1531, Intra-Operative (Intra-Procedure), Routine 09 (Given - Provid er: Carlos Andrew MD)0951 (Given - Provider: Carlos Andrew MD) BUpivacaine (PF) (MARCAINE) 0.75 % (7.5 mg/mL) injection (CANCELED) ONCE PRN, Starting on Sat01/29/20 at 1050, Until Sat01/29/20 at 1531, Intra-Operative (Intra-Procedure), Routine 1050 (Given - Provid er: Carlos Andrew MD) ceFAZolin (Ancef) injection (CANCELED) ONCE PRN, Starting on Sat01/29/20 at 0903, Until Sat01/29/20 at 1531, Intra-Operative (Intra-Procedure), Routine 902 (Given - Provid er: Carlos Andrew MD - Comment: post op) dexamethasone (Decadron) injection (CANCELED) ONCE PRN, Starting on Sat01/29/20 at 0904, Until Sat01/29/20 at 1531, Intra-Operative (Intra-Procedure), Routine 903 (Given - Provid er: Carlos Andrew MD - Comment: post op) gentamicin (GARAMYCIN) injection (CANCELED) ONCE PRN, Starting on Sat01/29/20 at 0904, Until Sat01/29/20 at 1531, Intra-Operative (Intra-Procedure), Routine 903 (Given - Provid er: Carlos Andrew MD - Comment: used for soaking the buckle) moxifloxacin (VIGAMOX) 0.5 % ophthalmic solution (CANCELED) ONCE PRN, Starting on Sat01/29/20 at 0904, Until Sat01/29/20 at 1531, Intra-Operative (Intra-Procedure), Routine 903 (Given - Provid er: Carlos Andrew MD - Comment: post op) bpdwbmkt-jsvijlmxd-boaqokqhlrpoh (DEXACINE) 3.5 mg/g-10,000 unit/g-0.1 % ophthalmic ointment (CANCELED) ONCE PRN, Starting on Sat01/29/20 at 0905, Until Sat01/29/20 at 1531, Intra-Operative (Intra-Procedure), Routine 904 (Given - Provid er: Carlos Andrew MD - Comment: post op) povidone-iodine 5 % ophthalmic solution (CANCELED) ONCE PRN, Starting on Sat01/29/20 at 0905, Until Sat01/29/20 at 1531, Intra-Operative (Intra-Procedure), Routine 904 (Given - Provid er: Carlos Andrew MD - Comment: used for prep)923 (Given - Provider: Carlos Andrew MD) Sodium Hyaluronate Syrg (CANCELED) ONCE PRN, Starting on Sat01/29/20 at 0905, Until Sat01/29/20 at 1531, Intra-Operative (Intra-Procedure) 904 (Given - Provid er: Carlos Andrew MD)950 (Given - Provider: Carlos Andrew MD) tetracaine (PF) (PONTOCAINE) ophthalmic solution (CANCELED) ONCE PRN, Starting on Sat01/29/20 at 0906, Until Sat01/29/20 at 1531, Intra-Operative (Intra-Procedure), Routine 905 (Given - Provid er: Carlos Andrew MD) documented in this encounter Care Teams Electronic Coils Supervisor Relationship Specialty Start Date End Date Svetlana Buckley MD [facility] [place] [address] PCP - General 04/18/10 documented as of this encounter
--- OUTSIDE RECORDS SUMMARY | 2024-05-14 17:06 | XMS_ITS | Encounter Summary ---
Author Organization [facility] Address [address] [place] [address] Care Team Providers Care Compositor Apprentice Name Role Phone Suyapa Armendariz NP Primary Care Provider [phone] Reason for Visit * Reason Onset Date Comments Surgery Scheduling 11/13/2023 Encounter Details Date Type Department Care Team (Late st Contact Info) Description 11/13/2023 Telephone [facility] Urology - [facility] [address] [place] [address] Gil Bright MD [address] [facility], [address] [place] [address] Surgery Scheduling Social History Tobacco [...] * Telephone Encounter - Lou Tovar - 11/13/2023 1205 EDT Spoke with Troy Schumacher's partner, Tiffanie to confirm his surgery on 02/10/[address] Bright. Patient will contact his PCP to schedule a pre-op history and physical within the 30 days prior. A PAT call is scheduled on 01/31/24 between 9:10 and 10:10. A $100 deposit was collected today. documented in this encounter Plan of Treatment Upcoming Encounters Date Type Department Care Team (Late st Contact Info) Description 08/17/2024 11:00 EDT Appointment [facility] [address] [id number] Lab, E&I 08/17/2024 13:00 EDT Office Visit [facility] [address] [id number] Gil Bright MD [address] [place] [address], [address] [place] [id number] documented as of this encounter Visit Diagnoses Not on filedocumented in this encounter Care Teams Compositor Apprentice Relationship Specialty Start Date End Date Suyapa Armendariz NP [facility] [address] [place] [address] PCP - General Family Medicine - Primary Care 07/23/23 02/11/24 documented as of this encounter
--- OUTSIDE RECORDS SUMMARY | 2024-05-14 17:06 | XMS_ITS | Encounter Summary ---
[place] [address] Care Team Providers Care Director Of Sales Marketing Name Role Phone Svetlana Buckley MD Primary Care Provider [phone] Reason for Visit * Auth/Cert Specialty Diagnoses / Procedures Referred By Contnikunj t Referred To Contact Diagnoses Retinal Detachment, left eye Procedures PRO REPAIR DETACH RETINA,W VITRECTOMY REPAIR RETINAL DETACHMENT W/ VITRECTOMY, SCLERAL BUCKLE; AIR,GAS,OIL,LASER,CRYO (WRVU 15.19) Referral ID Status Reason Start Date Expiration Date Visits Re quested Visits Authorized [id number] 1 1 Encounter Details Date Type Department Care Team (Late st Contact Info) Description 01/29/2020 8:30 AM EDT - 01/29/2020 10:44 AM EDT [place] [id number] Carlos Andrew MD REPAIR RETINAL DETACHMENT W/ VITRECTOMY, SCLERAL BUCKLE; AIR,GAS,OIL,LASER,CRYO (WRVU 17.13) Social History Tobacco Use Types Packs/Day Years [...] Sign Reading Time Taken Comments Blood Pressure 126/71 01/29/2020 7:10 AM EDT Pulse 63 01/29/2020 7:10 AM EDT Temperature 36.2 ??C (97.2 ??F) 01/29/2020 7:10 AM ED T Respiratory Rate 16 01/29/2020 7:10 AM EDT Oxygen Saturation 100% 01/29/2020 7:10 AM EDT Inhaled Oxygen Concentration - - Weight [...] sensitivity and vision loss please call the [facility] telephone center ([phone]) immediately and speak to the advertising designer epoxy fabrication supervisor. PAIN May use over the counter pain [...] documented in this encounter Progress Notes * Mehegan, Adama, RN - 01/29/2020 1:06 PM EDT Discharge [...] Andrew MD - 01/29/2020 8:28 AM EDT [facility] Operative Note Patient Name: Troy Schumacher : [id number] MR#: [id number] Case Date: 01/29/2020 Surgeon: Surgeon(s) and Role: [...] brought to the operative suite at the [facility] where a time-out was done to confirm [...] Diagnosis Comments Repair Detach Retina, W Vitrectomy ([id number]) Yes 01/29/2020 8:28 AM EDT Left retinal [...] Left retinal detachment- Primary Unspecified retinal detachment Left retinal detachment Unspecified retinal detachment documented [...] Given 01/29/2020 7:24 AM EDT 1 drop balanced salt (BSS PLUS) irrigation solution ONCE PRN, Starting on Sat01/29/20 at 0903, Until Sat01/29/20 at 1531, Intra-Operative (Intra-Procedure), Routine Given 01/29/2020 9:03 AM EDT 1 Bottle 19- Surgical Site balanced salt (BSS) irrigation solution ONCE PRN, Starting on Sat01/29/20 at 0903, Until Sat01/29/20 at 1531, Intra-Operative (Intra-Procedure), Routine Given 01/29/2020 9:51 AM EDT 3 Bottles 19- Surgical Site Given 01/29/2020 9:03 AM EDT 2 Bottles 19 - Surgical Site BUpivacaine (PF) (MARCAINE) 0.75 % (7.5 mg/mL) injection ONCE PRN, Starting on Sat01/29/20 at 1050, Until Sat01/29/20 at 1531, Intra-Operative (Intra-Procedure), Routine Given 01/29/2020 10:50 AM EDT 3 mLs 19- Surgical Site ceFAZolin (Ancef) injection ONCE PRN, Starting on Sat01/29/20 at 0903, Until Sat01/29/20 at 1531, Intra-Operative (Intra-Procedure), Routine Given 01/29/2020 9:03 AM EDT 100 mg 19- Surgical Site dexamethasone (Decadron) injection ONCE PRN, Starting on Sat01/29/20 at 0904, Until Sat01/29/20 at 1531, Intra-Operative (Intra-Procedure), Routine Given 01/29/2020 9:04 AM EDT 2 mg 19- Surgical Site gentamicin (GARAMYCIN) injection ONCE PRN, Starting on Sat01/29/20 at 0904, Until Sat01/29/20 at 1531, Intra-Operative (Intra-Procedure), Routine Given 01/29/2020 9:04 AM EDT 80 mg 19- Surgical Site moxifloxacin (VIGAMOX) 0.5 % ophthalmic solution 1 drop 1 drop, Left Eye, EVERY 5 MIN, 3 doses, First dose on Sat01/29/20 at 0730, Last dose on Sat01/29/20 at 0740, Day of Surgery (Day of Procedure), Routine Given 01/29/2020 7:37 AM EDT 1 drop Given 01/29/2020 7:33 AM EDT 1 drop Given 01/29/2020 7:26 AM EDT 1 drop moxifloxacin (VIGAMOX) 0.5 % ophthalmic solution ONCE PRN, Starting on Sat01/29/20 at 0904, Until Sat01/29/20 at 1531, Intra-Operative (Intra-Procedure), Routine Given 01/29/2020 9:04 AM EDT 1 drop 19- Surgical Site cniqwxqg-guejbzenu-tqkheqgncmy ne (DEXACINE) 3.5 mg/g-10,000 unit/g-0.1 % ophthalmic ointment ONCE PRN, Starting on Sat01/29/20 at 0905, Until Sat01/29/20 at 1531, Intra-Operative (Intra-Procedure), Routine Given 01/29/2020 9:05 AM EDT 1 Tube 19- Surgical Site PHENYLephrine (MYDFRIN) 2.5 % ophthalmic solution 1 drop 1 drop, Left Eye, EVERY 5 MIN, 3 doses, First dose on Sat01/29/20 at 0730, Last dose on Sat01/29/20 at 0740, Day of Surgery (Day of Procedure), Routine Given 01/29/2020 7:37 AM EDT 1 drop Given 01/29/2020 7:33 AM EDT 1 drop Given 01/29/2020 7:27 AM EDT 1 drop povidone-iodine 5 % ophthalmic solution ONCE PRN, Starting on Sat01/29/20 at 0905, Until Sat01/29/20 at 1531, Intra-Operative (Intra-Procedure), Routine Given 01/29/2020 9:24 AM EDT 30 mLs 19- Surgical Site Given 01/29/2020 9:05 AM EDT 30 mLs 19 - Surgical Site prednisoLONE acetate (PRED FORTE) 1 % ophthalmic suspension 1 drop 1 drop, Left Eye, ONCE, 1 dose, On Sat01/29/20 at 0730, Day of Surgery (Day of Procedure), Routine Given 01/29/2020 7:28 AM EDT 1 drop Sodium Hyaluronate Syrg ONCE PRN, Starting on Sat01/29/20 at 0905, Until Sat01/29/20 at 1531, Intra-Operative (Intra-Procedure) Given 01/29/2020 9:51 AM EDT 1 each 19- Surgical Site Given 01/29/2020 9:05 AM EDT 1 each 19 - Surgical Site tetracaine (PF) (PONTOCAINE) ophthalmic solution ONCE PRN, Starting on Sat01/29/20 at 0906, Until Sat01/29/20 at 1531, Intra-Operative (Intra-Procedure), Routine Given 01/29/2020 9:06 AM EDT 1 drop 19- Surgical Site documented in this encounter Active and Recently Administered Medications Times are shown in EDT. Scheduled Medication Order 01/27/2020 01/28/2020 01/29/2020 atropine 1 % ophthalmic solution 1 drop (COMPLETED) 1 drop, Left Eye, EVERY 5 MIN, 3 doses, First dose on Sat01/29/20 at 0730, Last dose on Sat01/29/20 at 0740, Day of Surgery (Day of Procedure), Routine 07 (Given - Provid er: Kimani Rossi RN)0732 [...] Day of Surgery (Day of Procedure), Routine 0728 (Given - Provid er: Kimani Rossi RN) [...] 902 (Given - Provid er: Carlos Andrew MD) balanced salt (BSS) irrigation solution (CANCELED) ONCE PRN, Starting on Sat01/29/20 at 0903, Until Sat01/29/20 at 1531, Intra-Operative (Intra-Procedure), Routine 902 (Given - Provid er: Carlos Andrew MD)950 (Given - Provider: Carlos Andrew MD) BUpivacaine [...] Carlos Andrew MD - Comment: post op) oxruosnt-xbijmxuce-phchpsdkjkfev (DEXACINE) 3.5 mg/g-10,000 unit/g-0.1 % ophthalmic ointment [...] Carlos Andrew MD - Comment: used for prep)0924 (Given - Provider: Carlos Andrew MD) Sodium Hyaluronate Syrg (CANCELED) ONCE PRN, Starting on Sat01/29/20 at 0905, Until Sat01/29/20 at 1531, Intra-Operative (Intra-Procedure) 09 (Given - Provid er: Carlos Andrew MD)0951 (Given - Provider: Carlos Andrew MD) tetracaine (PF) (PONTOCAINE) ophthalmic solution (CANCELED) ONCE PRN, Starting on Sat01/29/20 at 0906, Until Sat01/29/20 at 1531, Intra-Operative (Intra-Procedure), Routine 905 (Given - Provid er: Carlos Andrew MD) documented in this encounter Care Teams Director Of Sales Marketing Relationship Specialty Start Date End Date Svetlana Buckley MD [facility] [place] [address] PCP - General 04/18/10 documented as of this encounter
--- OUTSIDE RECORDS SUMMARY | 2024-05-14 17:06 | XMS_ITS | Encounter Summary ---
Author Organization [facility] Address [address] [place] [address] Care Team Providers Care Phd Internship Name Role Phone Nannette Jeffers Primary Care Provider [phone] Reason for Visit * Reason Comments Follow-up POV (02/09) Encounter Details Date Type Department Care Team (Late st Contact Info) Description 02/28/2024 10:00 EDT Post-op Visit [facility] Urology - [facility] [address] [place] [address] Gil Bright MD [address] [facility], [address] [place] [address] Azoospermia (Primary Dx) Social History Tobacco Use Types Packs/Day Years [...] (97 ??F) 02/28/2024 0947 EDT Respiratory Rate - - Oxygen Saturation 96% 02/28/2024 0947 EDT Inhaled Oxygen Concentration - - Weight - - Height - - Body Mass Index - - documented in this encounter Functional Status * Because of a physical, mental, or emotional condition, does this person have difficulty doing errands alone such as visiting a doctor's office or shopping? Answer Date of Assessment Author No 02/28/2024 9:49 EDT documented as of this encounter Mental Status * Because of a physical, mental, or emotional condition, does this person have serious difficulty concentrating, remembering, or making decisions? Answer Entry Date Author No 02/28/2024 9:49 EDT documented in this encounter Progress Notes * Gil Bright MD - 02/28/2024 1000 EDT Chief complaint: Azoospermia Troy is a 33-year-old man with a history of chronic scrotal pain following a vasectomy 4 years agowith a pain pattern consistent with obstruction. He underwent right vasoepididymostomy and left vasovasostomy February 10, 2024. He states he had more swelling and discomfort on the right side but this has been gradually improving and he has no discomfort at rest at this point. He denies any incisional problems or fevers. On physical exam, both incisions appear well-approximated with no erythema or drainage. There is expected right scrotal content edema with a possible small hematoma and residual edema around the leftvas with mild tenderness to palpation. Troy appears to be doing well status post vasectomy reversal he will contact me in 10 days with a update on scrotal pain with ejaculation. He will gradually resume regular activity over the next week. Plan: Follow-up with me in 2 months with a quantitative semen analysis. documented in this encounter Plan of Treatment Upcoming Encounters Date Type Department Care Team (Late st Contact Info) Description 08/17/2024 11:00 EDT Appointment [facility] [address] [address] Lab, E&I 08/17/2024 13:00 EDT Office Visit [facility] Urology [address] [address] Gil Bright MD [address] [place] [address], [address] [place] [address] documented as of this encounter Results * (ABNORMAL) POCT SEMEN ANALYSIS, COMPLETE (05/04/2024 10:50 EST) Partner Sharon Schumacher [facility] POINT OF CARE Referring Provider Kaila [facility] POINT OF CARE Outside Request [facility] POINT OF CARE Specimen Collected, POC In Clinic (Normal) [facility] POINT OF CARE Length of Sexual Abstinence, POC 3 Days [facility] POINT OF CARE Any Portion of Specimen [...] [facility] PO INT OF CARE PMN'S (Leukocytes) [facility] POINT OF CARE Comments, POC SEMEN [facility] POINT OF CARE Comment:No sperm were seen o n 3 slides of neat sample. Sample was concentrated to 0.5mL. No sperm was seen in concentrated sample. Email sent to Dr. Bright and microbiology lab analyst. Electronic Signature Arnaud Nguyen, PhD, [facility] POINT OF CARE Semen PENILE STRUCTURE / Unknown 05/04/2024 10:50 EST us Gil Bright MD POINT OF CARE TEST ORDERA BLES Final Result [facility] POINT OF CARE documented in this encounter Visit Diagnoses Diagnosis Azoospermia- Primary documented in this encounter Care Teams Phd Internship Relationship Specialty Start Date End Date Nannette Jeffers FNP [address] [place] [address] PCP - General Family Medicine - Primary Care 02/12/24 documented as of this encounter
--- OUTSIDE RECORDS SUMMARY | 2024-05-14 17:06 | XMS_ITS | Encounter Summary ---
Author Organization [facility] Address [address] [place] [address] Care Team Providers Care Machine Scallop Cutter Name Role Phone Suyapa Armendariz NP Primary Care Provider [phone] Encounter Details Date Type Department Care Team (Latest Contact Info) Description 01/31/2024 9:06 EDT - 01/31/2024 23:59 EDT Hospital Encounter [facility] Pre-Surgical Testing [address] [place], [place] [address] Discharge Disposition: Home or Self Care Social [...] Sign Reading Time Taken Comments Blood Pressure - - Pulse - - Temperature - - Respiratory Rate - - Oxygen Saturation - - Inhaled Oxygen Concentration - - Weight 113.4 kg (250 lb) 01/31/2024 0844 EDT Height 182.9 cm (6') 01/31/2024 0844 EDT Body Mass Index 33.91 01/31/2024 0844 EDT documented in this encounter Medications at Time of Discharge calcium carbonate (TUMS ORAL) Take by mouth if needed. ergocalciferol, vitamin D2, (VITAMIN D ORAL) Take by mouth if needed. Winter months sildenafil citrate (VIAGRA) 25 mg tablet Take 1 Tablet by mouth every evening. acetaminophen (TYLENOL ORAL) Take by mouth if needed. 02/10/2024 acetaminophen (TYLENOL) 500 mg tablet Take 2 Tablets by mouth every 6 hours as needed for up to 30 days for Pain. 02/10/2024 03/11/2024 ibuprofen (MOTRIN) 600 mg tablet Take 1 Tablet by mouth every 6 hours as needed for up to 30 days for Pain. 02/10/2024 03/11/2024 IBUPROFEN ORAL Take by mouth if needed. 02/10/2024 oxyCODONE (ROXICODONE) 5 mg immediate release tablet Take 1 Tablet by mouth every 4 hours as needed for up to 14 days for Pain. Daily Max: 30 mg 6 Tablet 02/10/2024 02/24/2024 documented as of this encounter Discharge Disposition Disposition Code Departure Means Destination Home or Self Care documented in this encounter Plan of Treatment Upcoming Encounters Date Type Department Care Team (Late st Contact Info) Description 08/17/2024 11:00 EDT Appointment [facility] [address] [id number] Lab, E&I 08/17/2024 13:00 EDT Office Visit [facility] Urology [address] [address] Gil Bright MD [address] [place] [address], [address] [place] [phone] documented as of this encounter Visit Diagnoses Not on filedocumented in this encounter Historical Medications * This list may reflect changes made after this encounter. calcium carbonate (TUMS ORAL) Take by mouth if needed. ergocalciferol, vitamin D2, (VITAMIN D ORAL) Take by mouth if needed. winter acetaminophen (TYLENOL ORAL) Take by mouth if needed. 02/10/2024 IBUPROFEN ORAL Take by mouth if needed. 02/10/2024 added in this encounter Care Teams Machine Scallop Cutter Relationship Specialty Start Date End Date Suyapa Armendariz NP [facility] [address] [place] [address] PCP - General Family Medicine - Primary Care 07/23/23 02/11/24 documented as of this encounter
--- OUTSIDE RECORDS SUMMARY | 2024-05-14 17:06 | XMS_ITS | Encounter Summary ---
Author Organization [facility] [place] [address] Care Team Providers Care Seasonal Clerk Name Role Phone Svetlana Buckley MD Primary Care Provider [phone] Reason for Visit * Reason Comments Post Op Encounter Details Date Type Department Care Team (Late st Contact Info) Description 02/09/2020 1:15 PM EDT Office [place] [phone] Carlos Andrew MD Left retinal detachment s/p [id number] 01/29/20 Social History Tobacco Use Types Packs/Day Years [...] * Patient Instructions* Carlos Andrew MD - 02/09/2020 1:15 PM EDT Images from the original note were not included. Drop Name: Cap Color: Dose: 1 Drop Eye: Prednisolone Acetate 1% [place] or White 2 times per day Until bottle empties (shake bottle before using) Operated eye Vigamox (Moxifloxacin) Espinal STOP Operated eye Ointment Small tube 2-3x daily as needed Operated eye Make sure to wait 3-5 minutes between eye drops. POSITIONING: No special positioning WARNING SYMPTOMS People frequently feel mild-moderate discomfort that improves within a few days. Eyelid edema and redness are also common. However, if you feel new pain, light sensitivity and vision loss please call the [facility] telephone center ([phone]) immediately and speak to the vacuum drier tender multifocal button inspector. PAIN May use over the counter pain medications as needed (Tylenol 1000mg- up to 3 times daily) alternating with ibuprofen (600mg up to 3 times per day) EYE SHIELD: Not needed OTHERS Make sure you wash your hands prior to touching your eye (i.e. Prior to applying your eyedrops) Avoid lifting very heavy weights for 1 month (i.e. Not more than 20 lbs) FLIGHTS: Do NOT take any flights until you discuss it with your doctor. There's severe risk for the eye if you're in areas of high altitude (flight, very tall mountains etc) documented in this encounter Progress Notes * Carlos Andrew MD - 02/09/2020 1:15 PM EDT ASSESSMENT/PLAN: Visual Acuity Visual Acuity (Snellen - Linear) Right Left Dist sc 5/400 Dist cc 20/20 Dist ph sc 20/200 Correction: Contacts Tonometry Tonometry (Applanation, 1:37 PM) Right Left Pressure 21 19 1. Left retinal detachment s/p [id number] 01/29/20 POW1. Doing well. The IOP is good, the retina attached.The warning symptoms of RD were discussed. Eye drops: PF BID until the bottle empties. Stop Vigamox Follow up in 5-6 weeks HCK for quick MRx (pt is having it elsewhere as well) OS, DFE, OCT OU I, Lilly Pryor, have performed the documentation for this encounter in the presence of, and acting as a scribe for Carlos Andrew MD. I performed the services which were documented by the scribe, and I agree with the accuracy of the documentation in this encounter. Carlos Andrew MD, PhD documented in this encounter Plan of Treatment Not on file documented as of this encounter Visit Diagnoses Diagnosis Left retinal detachment s/p [id number] 01/29/20 Unspecified retinal detachment documented in this encounter Care Teams Seasonal Clerk Relationship Specialty Start Date End Date Svetlana Buckley MD [facility]ILD [facility] [place] [address] PCP - General 04/18/10 documented as of this encounter
--- OUTSIDE RECORDS SUMMARY | 2024-05-14 17:06 | XMS_ITS | Encounter Summary ---
Author Organization [facility] [place] [address] Care Team Providers Care Carpet Mechanic Name Role Phone Svetlana Buckley MD Primary Care Provider [phone] Encounter Details Date Type Department Care Team (Late st Contact Info) Description 01/27/2020 [place] [phone] Carlos Andrew MD Social History Tobacco Use Types Packs/Day Years Used Date Smoking Tobacco: Never Assessed Sex and Gender Information Value Date Recorded Sex Assigned at Not on file Gender Identity Not on file Sexual Orientation Not on file documented as of this encounter Miscellaneous Notes * Telephone Encounter - Carlos Andrew MD - 01/27/2020 9:08 AM EDT Troy Schumacher came in with macula on retinal detachment yesterday and the plan was to repair it surgically within 24 hours (aka today). However he was unable to find a ride to the hospital today. I discussed with him the risk of permanent vision loss due to this delay and he understands. We will lookinto the next openings in the OR documented in this encounter Plan of Treatment Not on file documented as of this encounter Visit Diagnoses Diagnosis Left retinal detachment Unspecified retinal detachment documented in this encounter Care Teams Carpet Mechanic Relationship Specialty Start Date End Date Svetlana Buckley MD [facility]ILD [facility]VOCACY [facility] [place] [address] PCP - General 04/18/10 documented as of this encounter
--- OUTSIDE RECORDS SUMMARY | 2024-05-14 17:06 | XMS_ITS | Encounter Summary ---
Author Organization [facility] Address [address] [place] [address] Care Team Providers Care Assistant Field Hockey Coach Name Role Phone Suyapa Armendariz CABINET MAKER Primary Care Provider [phone] Reason for Visit * Reason Comments Post-OP Follow Up Nurse post op calll Encounter Details Date Type Department Care Team (Late st Contact Info) Description 02/11/2024 13:55 EDT Telemedicine [facility] Urology - [facility] [address] [place] [address] Nurse Call, [facility] Urology Scrotal pain (Primary Dx) Social History Tobacco Use Types [...] as of this encounter Progress Notes * Evelin Pino, DAVID - 02/11/2024 1355 EDT post operative R vasoepididymostomy and L vasovastomy phone call Date of procedure 02/10/2024 Date of post-op follow up 02/28/[address] Bright. Patient c/o pain. Describes as scrotal pain R worse than L and 3/10.. Medications given at discharge ibuprofen, tylenol, and oxycodone. Has not needed the oxycodone. Ok to take Tylenol. Activity Restriction: For 3 weeks avoid lifting anything that could make you strain. No driving while on narcotic. May resume sexual activity after 3 week. Discuss reasons to call or go to ER. Fever greater than 101.5 Chills Uncontrolled pain Increased swelling. Patient aware to contact clinic at [phone] during clinic hours with questions or concerns. Mayreach infrastructure consultant Urologist at [phone] with immediate concerns when clinic is closed. Question- since he did not stay over night, will he get some money back from what he paid. documented in this encounter Plan of Treatment Upcoming Encounters Date Type Department Care Team (Late st Contact Info) Description 08/17/2024 11:00 EDT Appointment [facility] [address] [id number] Lab, E&I 08/17/2024 13:00 EDT Office Visit [facility] Urology [address] [id number] Gil Bright MD [address] [place] [address], [address] [place] [phone] documented as of this encounter Visit Diagnoses Diagnosis Scrotal pain- Primary Unspecified disorder of male genital organs documented in this encounter Care Teams Assistant Field Hockey Coach Relationship Specialty Start Date End Date Suyapa Armendariz NP [address] [place] [address] PCP - General Family Medicine - Primary Care 07/23/23 02/11/24 documented as of this encounter
--- OUTSIDE RECORDS SUMMARY | 2024-05-14 17:06 | XMS_ITS | Encounter Summary ---
[place] [address] Care Team Providers Care Deckhand Oyster Dredge Name Role Phone Svetlana Buckley MD Primary Care Provider [phone] Reason for Visit * Reason Onset Date Comments Appointment 02/16/2020 Encounter Details Date Type Department Care Team (Late st Contact Info) Description 02/16/2020 Telephone [place] [phone] Carlos Andrew MD Appointment Social History Tobacco [...] encounter Miscellaneous Notes * Telephone Encounter - Nicole Pabon - 02/22/2020 9:27 AM EDT Patient scheduled * Telephone Encounter - Nicole Pabon - 02/16/2020 3:53 PM EDT Follow up in 5-6 weeks HCK for MRx, DFE, OCT OU documented in this encounter Plan of Treatment Not on file documented as of this encounter Visit Diagnoses Not on filedocumented in this encounter Care Teams Deckhand Oyster Dredge Relationship Specialty Start Date End Date Svetlana Buckley MD [facility] [address] CHILD AD[facility]Y [place] [address] PCP - General 04/18/10 documented as of this encounter
--- OUTSIDE RECORDS SUMMARY | 2024-05-14 17:06 | XMS_ITS | Encounter Summary ---
Author Organization [facility] Address [address] [place] [address] Care Team Providers Care Bulb Assembler Name Role Phone Suyapa Armendariz NP Primary Care Provider [phone] Reason for Visit * Reason Onset Date Comments Billing Question 11/13/2023 Encounter Details Date Type Department Care Team (Late st Contact Info) Description 11/13/2023 Telephone [facility] Urology - [facility] [address] [place] [address] Gil Bright MD [address] [facility], [address] [place] [address] Billing Question Social History Tobacco Use Types Packs/Day Years [...] encounter Miscellaneous Notes * Telephone Encounter - Rochelle Jefferson - 11/13/2023 0817 EDT Patients spouse has questions in regards to vasectomy reversal billing. Biology Research Assistant transferred call to Lou Tovar to further discuss requirements. documented in this encounter Plan of Treatment Upcoming Encounters Date Type Department Care Team (Late st Contact Info) Description 08/17/2024 11:00 EDT Appointment [facility] [address] [id number] Lab, E&I 08/17/2024 13:00 EDT Office Visit [facility] Urology [address] [id number] Gil Bright MD [address] [place] [address], [address] [place] [phone] documented as of this encounter Visit Diagnoses Not on filedocumented in this encounter Care Teams Bulb Assembler Relationship Specialty Start Date End Date Suyapa Armendariz NP [address] [place] [address] PCP - General Family Medicine - Primary Care 07/23/23 02/11/24 documented as of this encounter
--- OUTSIDE RECORDS SUMMARY | 2024-05-14 17:06 | XMS_ITS | Encounter Summary ---
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 Fisher. He developed aching scrotal pain worse with ejaculation. He underwent right vasa epididymovasostomy and left vasovasostomy February 10, 2024. He feels he has fully recovered and denies any further scrotal pain. SFA today: Volume: 4.3 mL Concentration: 0 million/mL pH: 7.9 I reviewed today's semen analysis demonstrating persistent azoospermia with Troy and his today. We discussed the possibility that after vasoepididymostomy, sperm may return to the ejaculate later than 3 months. We also discussed future options for fertility including a repeat attempt at revers al or sperm extraction and in vitro fertilization. Plan: Follow-up in 3 months with a semen analysis. documented in this encounter Plan of Treatment Upcoming Encounters Date Type Department Care Team (Late st Contact Info) Description 08/17/2024 11:00 EDT Appointment [facility] [address] [id number] Lab, E&I 08/17/2024 13:00 EDT Office Visit [facility] Urology [address] 038651 Gil Bright MD [address] [place] [address], [address] [place] [phone] documented as of this encounter Visit Diagnoses Diagnosis Azoospermia after vasectomy- Primary documented in this encounter Care Teams Swing Manager Relationship Specialty Start Date End Date Nannette Jeffers FNP [address] [place] [phone] PCP - General Family Medicine - Primary Care 02/12/24 documented as of this encounter
--- OUTSIDE RECORDS SUMMARY | 2024-05-14 17:06 | XMS_ITS | Encounter Summary ---
Author Organization [facility] Address [address] [place] [address] Care Team Providers Care Caustic Preparer Name Role Phone Suyapa Armendariz NP Primary Care Provider [phone] Reason for Visit * Reason Onset Date Comments Surgery Scheduling 01/16/2024 Encounter Details Date Type Department Care Team (Late st Contact Info) Description 01/16/2024 Telephone [facility] Urology - [facility] [address] [place] [address] Gil Bright MD 111 [facility], [address] [place] [address] Surgery Scheduling Social History Tobacco [...] * Telephone Encounter - Lou Tovar - 01/16/2024 1127 EDT Spoke with financial services to confirm pt has signed a financial agreement and will be paying outof pocket for his surgery. * Telephone Encounter - Radha Strickland - 01/16/2024 1110 EDT Financial Services calling to see if patient is financially set for his upcoming surgery Please call back to advise documented in this encounter Plan of Treatment Upcoming Encounters Date Type Department Care Team (Late st Contact Info) Description 08/17/2024 11:00 EDT Appointment [facility] [address] 584251 Lab, E&I 08/17/2024 13:00 EDT Office Visit [facility] Urology [address] [phone] Gil Bright MD [address] [place] [address], [address] [place] [phone] documented as of this encounter Visit Diagnoses Not on filedocumented in this encounter Care Teams Caustic Preparer Relationship Specialty Start Date End Date Suyapa Armendariz NP [address] [place] [address] PCP - General Family Medicine - Primary Care 07/23/23 02/11/24 documented as of this encounter
--- OUTSIDE RECORDS SUMMARY | 2024-05-14 17:06 | XMS_ITS | Encounter Summary ---
Author Organization [facility] Address [address] [place] [address] Care Team Providers Care Bilingual Teacher Assistant Name Role Phone Suyapa Armendariz NP Primary Care Provider [phone] Reason for Visit * Reason Comments Infertility Epididymitis, s/p Va sectomy , Discuss Reversal * Referral (Routine) - Receiving Office to Obtain Authorization Specialty Diagnoses / Procedures Referred By Shasha concepcion Referred To Contact Urology Diagnoses Epididymitis Vasectomy status Ángel Fisher MD [address] [place] [address] [place] [address] Phone: tel: fax: Gil Bright MD Phone: tel: fax: Referral ID Status Reason Start Date Expiration Date Visits Requested Visits Authorized [id number] Receiving Office to Obtain Authorization 1 1 Encounter Details Date Type Department Care Team (Late st Contact Info) Description 10/22/2023 14:30 EDT Office Visit [facility] Urology - [address] [address] Gil Bright MD [address] [place] [address], [address] [place] [address] 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); Scrotal pain Social History Tobacco Use Types Packs/Day Years Used Date Smoking Tobacco: Never Smokeless Tobacco: Never Tobacco Cessation:Counseling Given: No Alcohol Use Standard Drinks/Week Comments Not Currently 0 (1 standard drink = 0.6 oz pur e alcohol) Sex and Gender Information Value Date Recorded Sex Assigned at Not on file Legal Sex Male 18:02 EST Gender Identity Male 07/23/2023 15:53 EST Sexual Orientation Not on file documented as of this encounter Progress Notes * Ann-Marie Miguel, DO - 10/22/2023 1430 EDT Chief Complaint: Chief Complaint Patient presents with Infertility Epididymitis, s/p Vasectomy , Discuss Reversal Reason for Consult: Urology was asked to see Troy at the request of Ángel Fisher MD for discussion regarding vasectomy reversal. HPI: Troy is a 33 y.o. male with history of vasectomy who presents today to discuss scrotal discomfort. Troy presents today with his partner, Sharon and foster child. Troy has two children from a prior relationship aged 9 and 12. Troy's partner, Johanne is 32 in good health with regular cycles, hasthree healthy children from two relationships. Vasectomy performed in [address] Fisher. Since vasectomy performed, Troy has since developed scrotal discomfort. He describes discomfort as dull/achy most of the time but worsened with ejaculation and with certain movements (heavy lifting/squatting) and can become sharp in these settings. Both sides are bothersome but the left maybe more so. They do not believe they desire future fertility. He believes he had a scrotal US performed which was reportedly WNL. Patient Active Problem List Diagnosis Scrotal pain H PSH History reviewed. No pertinent past medical history. 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 Review of Systems: Negative for fevers, chills, chest pain , shortness of breath, nausea, joint pain, muscle pain, dysuria, numbness, change in vision, endocrine problems or skin rashes. Objective/Physical Exam: Vital Signs: There were no vitals taken for this visit. Exam: Constitutional: Alert, in no distress. Lymph: Neck supple without lymphadenopathy Respiratory: Respirations unlabored. Cardiovascular: Pulse regular. Gastrointestinal: Abdomen soft, non tender. Renal: No CVA tenderness. Genital: Circumcised phallus with patent meatus at the tip, no plaques. Testes descended bilaterally without masses, normal testicular volumes. Testes bilaterally tender to palpation as are vasectomysites bilaterally with radiation of discomfort to the testes. Epididymis non-tender. No palpable varicocele. Musculoskeletal: Extremities warm without edema. Skin: Skin warm and dry. Impression: Troy is a 33 y.o. male with history of vasectomy who presents today to discuss scrotaldiscomfort. Suggestions/Recommendations: Reviewed Troy's clinical course as above. We reviewed possible causes for scrotal discomfort to include from obstruction from vasectomy versus neuropathic pain and typical pain patterns for both which can aid in diagnosis. Counseled that typically patients with obstruction-related pain have symptoms only following ejaculation and in periods of abstinence they are asymptomatic versus patients with neuropathic pain tend to have more constant symptoms. Recommended abstinence x 1 week to see if symptoms improve and then worsen with resumption of sexual activity. If this is the case, this would suggest obstruction-related pain in which case could consider vasectomy reversal versus open-ended vasectomy which would relieve the obstruction while stillproviding contraception. If symptoms do not improve with abstinence, would recommend trial of nerveblock. If this resolves the symptoms, he may benefit from testicular denervation. This procedure was discussed in detail with patient and partner today. Patient will reach out with update on symptoms as above after trial of abstinence to plan next steps. Thank you for consulting us in the care of Troy Schumacher. We will, of course, continue to keep you informed of the patient's urological care and the results of our further evaluation. Patient seen and plan of care formulated with Gil Bright, Reproductive Urology Attending. Ann-Marie Miguel DO, PGY7 Fellow Reproductive Endocrinology & Infertility [facility] 10/22/2023 Attestation statement: I performed or was present during the henley or critical portions of the visit and participated in the management of the patient. I agree with the findings and plan of care documented in the resident's/fellow's note. Gil Bright MD Surgery, Division of Urology documented in this encounter Plan of Treatment Upcoming Encounters Date Type Department Care Team (Late st Contact Info) Description 08/17/2024 11:00 EDT Appointment [facility] [address] [phone] Lab, E&I 08/17/2024 13:00 EDT Office Visit [facility] Urology [address] [address] Gil Bright MD [address] [place] [address], [address] [place] [address] documented as of this encounter Visit Diagnoses Diagnosis Azoospermia after vasectomy- Primary Scrotal pain Unspecified disorder of male genital organs documented in this encounter Historical Medications * This list may reflect changes made after this encounter. sildenafil citrate (VIAGRA) 25 mg tablet Take 1 Tablet by mouth every evening. added in this encounter Care Teams Bilingual Teacher Assistant Relationship Specialty Start Date End Date Suyapa Armendariz, PELON [address] [place] [address] PCP - General Family Medicine - Primary Care 07/23/23 02/11/24 documented as of this encounter
--- OUTSIDE RECORDS SUMMARY | 2024-05-14 17:06 | XMS_ITS | Encounter Summary ---
Author Organization [facility] Address [address] [place] [address] Care Team Providers Care Granite Polisher Name Role Phone Suyapa Armendariz NP Primary Care Provider Encounter Details Date Type Department Care Team (Late st Contact Info) Description 11/05/2023 Prep for Procedure [address] [phone] iGl Bright MD [address] [place] [address], [address] [place] [address] Scrotal pain (Primary Dx) Social History Tobacco [...] Contact Info) Description 08/17/2024 11:00 EDT Appointment [facility] Reproductive Medicine & Infertility [address] [phone] Lab, E&I 08/17/2024 13:00 EDT Office Visit [facility] [address] [phone] Gil Bright MD [address] [place] [address], [address] [place] [address] documented as of this encounter Visit Diagnoses Diagnosis Scrotal pain- Primary Unspecified disorder of male genital organs documented in this encounter Orders Case Request Count Last Ordered Date First Orde red Date CASE REQUEST OPERATING ROOM 1 11/05/2023 documented in this encounter Care Teams Granite Polisher Relationship Specialty Start Date End Date Suyapa Armendariz NP [address] [place] [address] PCP - General Family Medicine - Primary Care 07/23/23 02/11/24 documented as of this encounter
--- OUTSIDE RECORDS SUMMARY | 2024-05-14 17:06 | XMS_ITS | Encounter Summary ---
Author Organization [facility] Address [address] [place] [address] Care Team Providers Care Mail Handler Name Role Phone None, Provider Primary Care Provider Suyapa Lopez NP Primary Care Provider [phone] Nannette JeffersP Primary Care Provider [phone] Encounter Details Date Type Department Care Team (Late st Contact Info) Description 10/26/2019 Lab Requisition [facility] Pathology & Laboratory Medicine - [address] [address] Outr Resulting Lab, Provider Social History Tobacco [...] Contact Info) Description 08/17/2024 11:00 EDT Appointment [facility] [address] [address] Lab, E&I 08/17/2024 13:00 EDT Office Visit [facility] Urology - [address] [phone] Gil Bright MD [address] [place] [address], [address] [place] [phone] documented as of this encounter Procedures Procedure Name Priority Date/Time Associated Diagnosis Comments DO NOT ORDER STANDALONE - BROAD COVID TEST Today 10/26/2019 11:11 EDT COVID-19 TESTING Routine 10/26/2019 11:1 1 EDT documented in this encounter Results * DO NOT ORDER STANDALONE - BROAD COVID TEST (10/26/2019 11:11 EDT) COVID-19 rt-PCR Result NEGATIVE Negative 10/27/2019 12:10 EDT [facility] Comment: 2019-novel Coronavirus (2019-nCoV) not detected by the qRT-PCR assay. Consider testing for other respiratory viruses or re-collecting for 2019-nCoV testing. Note: Optimum timing for peak viral levels during infections caused by 2019-nCoV have not been determined. Collection of multiple specimens from the same patient may be necessary to detect the virus. Limitations Positive results are indicative of active infection with SARS-CoV-2 but do not rule out bacterial infection or co-infection with other viruses. The agent detected may not be the definite cause of disease. In addition, detection of viral RNA may not indicate the presence of infectious virus or that SARS-CoV-2 is the causative agent for clinical symptoms. Negative results do not preclude SARS-CoV-2 infection and should not be used as the sole basis for patient management decisions. Negative results must be combined with clinical observations, patient history, and epidemiological information. False negative results may also occur if amplification inhibitors are present in the specimen or if inadequate numbers of organisms are present in the specimen. Optimum specimen types and timing for peak viral levels during infections caused by SARS-CoV-2 have not been fully determined. Collection of multiple specimens (types and time points) from the same patient may be necessary to detect the virus. The test was validated for use with upper respiratory specimens obtained via nasopharyngeal or oropharyngeal swabs in VTM, UTM, M4, M5, M6, saline, and MTM media. The performance of this test has not been established for other specimens. Specimens collected using other FDA recommended Specimen Collection Materials listed in the FDA COVID-19 [employer] communication (August 20, 2019) are processed with the caveat that they were not all validated for use with this test and the result must be interpreted in this context. Furthermore, a false negative results may occur if a specimen is improperly collected, transported or handled. If the virus mutates in the RT-PCR target region, SARS-CoV-2 may not be detected or may be detected less predictably. Inhibitors or other types of interference may produce a false negative result. An interference study evaluating the effect of common cold medications was not performed. This test is not FDA-cleared but its performance characteristics were established by our CLIA-certified, CAP-accredited, high complexity laboratory in accordance with CLIA regulations, [employer] [place] [employer] (CAP) guidelines (Aug 13, 2019), and FDA guidance (Jul 25, 2019). This test is only for use under the Food and Drug Administration's Emergency Use Authorization. Swab ENTIRE NASOPHARYNX / Unknown 10/26/2019 11:11 EDT 10/26/2019 15:44 EDT us Provider Outr Resulting Lab MICROBIOLOGY - GENER AL ORDERABLES Final Result [facility] [place], [place] * COVID-19 TESTING (10/26/2019 11:11 EDT) COVID-19 rt-PCR Result NEGATIVE Negative 10/27/2019 14:49 EDT [facility] Comment: 2019-novel Coronavirus (2019-nCoV) not detected by the qRT-PCR assay. Consider testing for other respiratory viruses or re-collecting for 2019-nCoV testing. Note: Optimum timing for peak viral levels during infections caused by 2019-nCoV have not been determined. Collection of multiple specimens from the same patient may be necessary to detect the virus. Limitations Positive results are indicative of active infection with SARS-CoV-2 but do not rule out bacterial infection or co-infection with other viruses. The agent detected may not be the definite cause of disease. In addition, detection of viral RNA may not indicate the presence of infectious virus or that SARS-CoV-2 is the causative agent for clinical symptoms. Negative results do not preclude SARS-CoV-2 infection and should not be used as the sole basis for patient management decisions. Negative results must be combined with clinical observations, patient history, and epidemiological information. False negative results may also occur if amplification inhibitors are present in the specimen or if inadequate numbers of organisms are present in the specimen. Optimum specimen types and timing for peak viral levels during infections caused by SARS-CoV-2 have not been fully determined. Collection of multiple specimens (types and time points) from the same patient may be necessary to detect the virus. The test was validated for use with upper respiratory specimens obtained via nasopharyngeal or oropharyngeal swabs in VTM, UTM, M4, M5, M6, saline, and MTM media. The performance of this test has not been established for other specimens. Specimens collected using other FDA recommended Specimen Collection Materials listed in the FDA COVID-19 [employer] communication (August 20, 2019) are processed with the caveat that they were not all validated for use with this test and the result must be interpreted in this context. Furthermore, a false negative results may occur if a specimen is improperly collected, transported or handled. If the virus mutates in the RT-PCR target region, SARS-CoV-2 may not be detected or may be detected less predictably. Inhibitors or other types of interference may produce a false negative result. An interference study evaluating the effect of common cold medications was not performed. This test is not FDA-cleared but its performance characteristics were established by our CLIA-certified, CAP-accredited, high complexity laboratory in accordance with CLIA regulations, [employer] [place] [employer] (CAP) guidelines (Aug 13, 2019), and FDA guidance (Jul 25, 2019). This test is only for use under the Food and Drug Administration's Emergency Use Authorization. Performing Lab [facility] 10/27/2019 14:49 EDT [facility] Swab ENTIRE NASOPHARYNX / Unknown 10/26/2019 11:11 EDT 10/26/2019 15:44 EDT us Provider Outr Resulting Lab MICROBIOLOGY - GENER AL ORDERABLES Final Result [facility] [address] [place] [address] [facility] [place], [place] documented in this encounter Visit Diagnoses Not on filedocumented in this encounter Care Teams Mail Handler Relationship Specialty Start Date End Date None, Provider PCP - General 06/23/13 07/22/23 Suyapa Armendariz, MAIL HANDLER [address] [place] [address] PCP - General Family Medicine - Primary Care 07/23/23 02/11/24 Nannette Jeffers FNP [address] [place] [phone] PCP - General [facility] Medicine - Primary Care 02/12/24 documented as of this encounter
--- OUTSIDE RECORDS SUMMARY | 2024-05-14 17:06 | XMS_ITS | Encounter Summary ---
Author Organization [facility] Address [address] [place] [address] Care Team Providers Care Filters Assembler Name Role Phone Suyapa Armendariz MEDICAL FIELD REPRESENTATIVE Primary Care Provider [phone] Reason for Visit * Reason Comments Pre-op Exam Vasectomy reversal s cheduled for 02/10/24 Encounter Details Date Type Department Care Team (Latest Contact Info) Description 02/08/2024 9:37 EDT - 02/08/2024 10:38 EDT Hospital Encounter [facility] - [address] [address] Amalia Chapa MD [address] [place] [phone] Preop cardiovascular exam (Primary Dx) Discharge Disposition: Home or Self Care Social [...] Sign Reading Time Taken Comments Blood Pressure 148/77 02/08/2024 0934 EDT Pulse 77 02/08/2024 0934 EDT Temperature 36.6 ??C (97.9 ??F) 02/08/2024 0934 EDT Respiratory Rate 16 02/08/2024 0934 EDT Oxygen Saturation 98% 02/08/2024933 EDT Inhaled Oxygen Concentration - - Weight 111.1 kg (245 lb) 02/08/2024 0934 EDT Height 182.9 cm (6') 02/08/202434 EDT Body Mass Index 33.23 02/08/202434 EDT documented in this encounter Discharge Instructions * Discharge Instructions* Amalia Chapa MD - 02/08/2024 10:38 EDT You are low risk for cardiac complications from the scheduled low risk surgery. documented in this encounter Medications at Time [...] Means Destination Comment s Home or Self Long Term D/c by provider documented in this encounter ED Notes * Amalia Chapa MD - 02/08/2024 0906 EDT DOS: 02/08/2024 Chief Complaint: Chief Complaint [...] of further medications. Upon departure from [facility], the patient's pain was 0 on a zero to ten scale. Any further pain treatment will be at the discretion of the provider following up with the patient based on their clinical assessment . Condition at departure from the [facility] : Stable MDM 02/08/2024 10:40 documented in this encounter Plan of Treatment Upcoming Encounters Date Type Department Care Team (Late st Contact Info) Description 08/17/2024 11:00 EDT Appointment [facility] [address] [address] Lab, E&I 08/17/2024 13:00 EDT Office Visit [facility] [address] [address] Gil Bright MD [address] [place] [address], [address] [place] [phone] documented as of this encounter Visit Diagnoses Diagnosis Preop cardiovascular exam- Primary Pre-operative cardiovascular examination documented in this encounter Care Teams Filters Assembler Relationship Specialty Start Date End Date Suyapa Armendariz NP [address] [place] [address] PCP - General Family Medicine - Primary Care 07/23/23 02/11/24 documented as of this encounter
--- OUTSIDE RECORDS SUMMARY | 2024-05-14 17:06 | XMS_ITS | Encounter Summary ---
Author Organization [facility] Address [address] [place] [address] Care Team Providers Care Automotive Painter Name Role Phone Suyapa Armendariz NP Primary Care Provider [phone] Reason for Visit * Reason Onset Date Comments Discuss Surgery 02/07/2024 Encounter Details Date Type Department Care Team (Late st Contact Info) Description 02/07/2024 Telephone [facility] Urology - [facility] [address] [place] [address] Gil Bright MD [address] [facility], [address] [place] [address] Discuss Surgery Social History Tobacco [...] * Telephone Encounter - Lou Tovar - 02/07/2024 1523 EDT Patient wasn't able to schedule a preop history and physical with his PCP today. [facility] (02/08/24). documented in this encounter Plan of Treatment Upcoming Encounters Date Type Department Care Team (Late st Contact Info) Description 08/17/2024 11:00 EDT Appointment [facility] [address] [address] Lab, E&I 08/17/2024 13:00 EDT Office Visit [facility] Urology [address] [phone] Gil Bright MD [address] [place] [address], [address] [place] [phone] documented as of this encounter Visit Diagnoses Not on filedocumented in this encounter Care Teams Automotive Painter Relationship Specialty Start Date End Date Suyapa Armendariz NP [address] [place] [address] PCP - General Family Medicine - Primary Care 07/23/23 02/11/24 documented as of this encounter
--- OUTSIDE RECORDS SUMMARY | 2024-05-14 17:06 | XMS_ITS | Encounter Summary ---
Author Organization [facility] [place] [address] Care Team Providers Care Public Relations Associate Name Role Phone Svetlana Buckley MD Primary Care Provider [phone] Encounter Details Date Type Department Care Team (Late st Contact Info) Description 01/30/2020 8:00 AM EDT Office Visit Ophthalmology [place] [address] Carlos Andrew MD Left retinal detachment s/p [...] * Patient Instructions* Carlos Andrew MD - 01/30/2020 8:00 AM EDT Images from the original note were not included. Drop Name: Cap Color: Dose: 1 Drop Eye: Prednisolone Acetate 1% [place] or White 4 times per day Operated eye Vigamox (Moxifloxacin) Espinal 4 times per day Operated eye Cosopt Blue 3 times per day Operated eye Ointment Small tube 2-3x daily as needed Operated eye Atropine Red none none Non operated eye: Please continue taking the same eye drops Make sure to wait 3 minutes between eye drops. POSITIONING: Please avoid sleeping with the face up. Any other position is fine WARNING SYMPTOMS: People frequently feel mild-moderate discomfort that improves within a few days. Eyelid edema and redness are also common. However, if you feel new pain, light sensitivity and vision loss please call the [facility] telephone center ([phone]) PAIN: May use over the counter pain medications as needed (Tylenol 1000mg- up to 3 times daily) alternating with ibuprofen (600mg up to 3 times per day) EYE SHIELD: Keep eye shield on the eye overnight. If you catch yourself touching your eye during daytime pleaseuse eyeshield during daytime to protect your eye. OTHERS: Ok to shower as long as you don't put fresh water directly in the eye. Showering with the chin up and/or covering the eye with a shield might also help Make sure you wash your hands prior to touching your eye (i.e. Prior to applying your eyedrops) Avoid lifting heavy weights for 1 week (i.e. Not more than 5 lbs) Avoid high impact exercise (e.g. Running) Avoid straining- valsalva, retching, vomiting, coughing FLIGHTS: Do NOT take any flights until you discuss it with your doctor. There's severe risk for the eye if you're in areas of high altitude (flight, very tall mountains etc) documented in this encounter Progress Notes * Carlos Andrew MD - 01/30/2020 8:00 AM EDT ASSESSMENT/PLAN: Not recorded Not recorded Troy Schumacher is here for POD#1 visit. The retina is attached, the IOP is high. Post-op instructions reviewed. Instructions (operated eye only): Pred Forte QID Vigamox QID Cosopt BID No atropine Follow up as scheduled next week for POW#1 visit Carlos Andrew MD, PhD documented in this encounter Plan of Treatment Not on file documented as of this encounter Visit Diagnoses Diagnosis Left retinal detachment s/p [id number] 01/29/20 Unspecified retinal detachment documented in this encounter Care Teams Public Relations Associate Relationship Specialty Start Date End Date Svetlana Buckley MD [facility] [place] [address] PCP - General 04/18/10 documented as of this encounter
--- OUTSIDE RECORDS SUMMARY | 2024-05-14 17:06 | XMS_ITS | Clinical Summary ---
Author Organization [facility] Address [facility] [place] [address] Care Team Providers Care Mirror Polisher Name Role Phone Svetlana Buckley MD Primary Care Provider [phone] Allergies No known active allergies Medications Medication Sig Dispensed Refills Start Date End Date Status dorzolamide-timoloL (Cosopt) 22.3-6.8 mg/mL DropsIndications:Lef t retinal detachment Place 1 drop into the left eye 2 times daily. 10 mL 1 01/30/2020 Active Additional Information Patient not taking.Reported on 03/17/2020 prednisoLONE acetate (PRED FORTE) 1 % Drops, Suspension Place 1 drop into the left eye 4 times daily. Active moxifloxacin (VIGAMOX) 0.5 % Drops Place 1 drop into the left eye 4 times daily. Active sildenafiL (VIAGRA) 50 mg Tablet TAKE 1/2 TO 1 TABLET ORALLY 1 HOUR PRIOR TO INTERCOURSE IF NEEDED MAX 2 PER DAY 03/07/2020 Active Active Problems Problem Noted Date Diagnosed Date Left retinal detachment 01/26/2020 Overview (01/26/2020): Added automatically from request for surgery [id number] Family History Medical History Relation Comments Retinal Detachment Father Glaucoma Paternal Grandmother Macular Degeneration Paternal Grandmother Cataracts Neg Hx Relation Status Comments Father Paternal Grandmother Social History Tobacco Use Types Packs/Day Years Used Date Smoking Tobacco: Never Smokeless Tobacco: Never Alcohol Use Standard Drinks/Week Comments Yes 0 (1 standard drink = 0.6 oz pur e alcohol) occasionally Sex and Gender Information Value Date Recorded Sex Assigned at Not on file Gender Identity Not on file Sexual Orientation Not on file Last Filed [...] Mass Index 26.49 01/29/2020 7:10 AM EDT Plan of Treatment Health Maintenance Due Date Last Done Comments HIV screen 2009 Hepatitis C Screening 2009 Hepatitis B vaccine (0-59 yrs) (1) 2010 Tetanus/Diphtheria/Pertussis Vaccines (1 - Tdap) 04/29 Covid-19 Vaccine (1 - season) 2024 Influenza (Flu) vaccine (1 o f 1 - Influenza standard series) 01/26/2024 Medical Devices Implanted Type Area Ingredient Specialist Device Identifier Shelf Expiration Date Model / Serial / Lot Sleev,Mary,3.75 mm ([id number]) - [id number] Implanted:Qty: 1 on 01/29/2020 by Carlos Andrew MD at [facility] IMPLANTS Left: Eye [employer] - [employer]AN[employer]IAN OPTH 07/24/2024 [id number] / / [id number] Scleral Buckling Implanted:Qty: 1 on 01/29/2020 by Carlos Andrew MD at [facility] Left: Eye 03/26/2021 [id number] / / [id number] Care Teams Mirror Polisher Relationship Specialty Start Date End Date Svetlana Buckley MD [facility] [address] CHILD ADVOCACY [place] [address] PCP - General 04/18/10
--- OUTSIDE RECORDS SUMMARY | 2024-05-14 17:06 | XMS_ITS | Encounter Summary ---
Author Organization [facility] Address [address] [place] [address] Care Team Providers Care Hooker Inspector Name Role Phone None, Provider Primary Care Provider Suyapa Lopez RADIO TELEVISION TECHNICAL DIRECTOR Primary Care Provider [phone] Nannette JeffersP Primary Care Provider [phone] Reason for Visit * Reason Onset Date Comments Follow-up 03/05/2023 Encounter Details Date Type Department Care Team (Late st Contact Info) Description 03/05/2023 Telephone [facility] Pediatric Genetics - [address] [phone] Roberto Esteban MD [address] [facility], [address] [place] [address] Follow-up Social History Tobacco Use Types Packs/Day Years Used Date Smoking Tobacco: Never Assessed Sex and Gender Information Value Date Recorded Sex Assigned at Not on file Legal Sex Male 18:02 EST Gender Identity Male 07/23/2023 15:53 EST Sexual Orientation Not on file documented as of this encounter Miscellaneous Notes * Telephone Encounter - Germaine Willard - 03/05/2023 6452 EDT Endy is calling to see how much it would cost for an appointment and genetic testing. He will be paying out of pocket documented in this encounter Plan of Treatment Upcoming Encounters Date Type Department Care Team (Late st Contact Info) Description 08/17/2024 11:00 EDT Appointment [facility] [address] [phone] Lab, E&I 08/17/2024 13:00 EDT Office Visit [facility] Urology [address] [phone] Gil Bright MD [address] [place] [address], [address] [place] [phone] documented as of this encounter Visit Diagnoses Not on filedocumented in this encounter Care Teams Hooker Inspector Relationship Specialty Start Date End Date None, Provider PCP - General 06/23/13 07/22/23 Suyapa Armendariz, RADIO TELEVISION TECHNICAL DIRECTOR [address] [place] [address] PCP - General Family Medicine - Primary Care 07/23/23 02/11/24 Nannette Jeffers FNP [address] [place] [phone] PCP - General Family Medicine - Primary Care 02/12/24 documented as of this encounter
--- OUTSIDE RECORDS SUMMARY | 2024-05-14 17:06 | XMS_ITS | Encounter Summary ---
Author Organization [facility] Address [address] [place] [address] Care Team Providers Care Head Of Acquisitions Name Role Phone Nannette Jeffers Primary Care Provider [phone] Encounter Details Date Type Department Care Team (Latest Contact Info) Description 05/04/2024 10:46 EST - 05/04/2024 23:59 EST Hospital Encounter [facility] - [facility] [address] [place] [address] Lab, E&I Azoospermia Discharge Disposition: Home or Self Care Social [...] 02/28/2024 9:49 EDT documented in this encounter Medications at Time of Discharge calcium carbonate (TUMS ORAL) Take by mouth if needed. ergocalciferol, vitamin D2, (VITAMIN D ORAL) Take by mouth if needed. winter sildenafil citrate (VIAGRA) 25 mg tablet Take 1 Tablet by mouth every evening. documented as of this encounter Discharge Disposition Disposition Code Departure Means Destination Home or Self Care documented in this encounter Plan of Treatment Upcoming Encounters Date Type Department Care Team (Late st Contact Info) Description 08/17/2024 11:00 EDT Appointment [facility] [address] [phone] Lab, E&I 08/17/2024 13:00 EDT Office Visit [facility] Urology [address] [phone] Gil Bright MD [address] [place] [address], [address] [place] [phone] documented as of this encounter Procedures Procedure Name Priority Date/Time Associated Diagnosis Comments POCT SEMEN ANALYSIS, COMPLETE Routine 05/04/2024 10:50 EST Azoospermia documented in this encounter Results * (ABNORMAL) POCT SEMEN ANALYSIS, COMPLETE (05/04/2024 10:50 EST) Partner Sharon Schumacher [facility] POINT OF CARE Referring Provider Kaila [facility] POINT OF CARE Outside Request [facility] POINT OF CARE Specimen Collected, POC In Clinic (Normal) [facility] POINT OF CARE Length of Sexual Abstinence, POC 3 Days [facility] POINT OF CARE Any Portion of Specimen Lost During Collection No No [facility] POIN T OF CARE Time Received 1,103 [facility] POINT OF CARE Received by SLO [facility] PO INT OF CARE Examined at 1,125 [facility] PO INT OF CARE Viscosity Normal Norm/Viscou s [facility] POINT OF CARE pH 7.9 7.2 - 9.0 [facility] POIN T OF CARE Specimen Volume 4.3 >=1.5 ml UV N POINT OF CARE Sperm Count 0(L) >=15 M/ml [facility] PO INT OF CARE Total Sperm Count 0 >=39 Million [facility] POINT OF CARE Motility,POC 0 >=40 % [facility] P OINT OF CARE Motility, Speed of Progression(grade d),POC [facility] POINT OF CARE Total Motile Sperm 0 Million [facility] POINT OF CARE Sperm Clumping (non-motile) [facility] POINT OF CARE Agglutination (motile sperm) [facility] POINT OF CARE Normal Forms [facility] P OINT OF CARE Round Cells [facility] PO INT OF CARE PMN'S (Leukocytes) [facility] POINT OF CARE Comments, POC SEMEN [facility] POINT OF CARE Comment:No sperm were seen o n 3 slides of neat sample. Sample was concentrated to 0.5mL. No sperm was seen in concentrated sample. Email sent to Dr. Bright and entry level lab technician. Electronic Signature Arnaud Nguyen, PhD, [facility] POINT OF CARE Semen PENILE STRUCTURE / Unknown 05/04/2024 10:50 EST Gil Bright MD POINT OF CARE TEST ORDERA BLES Final Result [facility] POINT OF CARE documented in this encounter Visit Diagnoses Diagnosis Azoospermia documented in this encounter Care Teams Head Of Acquisitions Relationship Specialty Start Date End Date Nannette Jeffers FNP [address] [place] [address] PCP - General Family Medicine - Primary Care 02/12/24 documented as of this encounter
--- OUTSIDE RECORDS SUMMARY | 2024-05-14 17:06 | XMS_ITS | Encounter Summary ---
Author Organization [facility] Address [address] [place] [address] Care Team Providers Care Fur Tanner Name Role Phone Suyapa Armendariz CLIP LOADING MACHINE ADJUSTER Primary Care Provider [phone] Reason for Visit * Reason Onset Date Comments Results 11/15/2023 Encounter Details Date Type Department Care Team (Late st Contact Info) Description 11/15/2023 Telephone [facility] Pediatric Genetics [facility] [address] [place], [place] [address] Sheila Butler, [place] [address] [facility] [place] [phone] Results Social History Tobacco Use Types Packs/Day [...] Notes * Telephone Encounter - Sheila Butler, MS - 11/15/2023 3689 EDT I called Troy to go over his carrier testing results from [facility]. He had seen them and had downloaded a PDF. His partner was an egg donor and had carrier testing but I suggested they get a copy of her report and confirm that she is not a carrier for any of the conditions that Troy is a carrier for. They were going to confirm that information. documented in this encounter Plan of Treatment Upcoming Encounters Date Type Department Care Team (Late st Contact Info) Description 08/17/2024 11:00 EDT Appointment [facility] [address] [address] Lab, E&I 08/17/2024 13:00 EDT Office Visit [facility] Urology [address] [address] Gil Bright MD [address] [place] [address], [address] [place] [address] documented as of this encounter Visit Diagnoses Not on filedocumented in this encounter Care Teams Fur Tanner Relationship Specialty Start Date End Date Suyapa Armendariz NP [address] [place] [address] PCP - General Family Medicine - Primary Care 07/23/23 02/11/24 documented as of this encounter
--- OUTSIDE RECORDS SUMMARY | 2024-05-14 17:06 | XMS_ITS | Encounter Summary ---
Author Organization [facility] Address [address] [place] [address] Care Team Providers Care Petroleum Refining Firer Name Role Phone None, Provider Primary Care Provider Suyapa Lopez NP Primary Care Provider [phone] Nannette JeffersP Primary Care Provider [phone] Encounter Details Date Type Department Care Team (Late st Contact Info) Description 09/23/2019 Lab Requisition [facility] Pathology & Laboratory Medicine - [address] [address] Outr Resulting Lab, Provider Social History Tobacco [...] Contact Info) Description 08/17/2024 11:00 EDT Appointment [facility] [address] [address] Lab, E&I 08/17/2024 13:00 EDT Office Visit [facility] Urology - [address] [phone] Gil Bright MD [address] [place] [address], [address] [place] [phone] documented as of this encounter Procedures Procedure Name Priority Date/Time Associated Diagnosis Comments ZZCOVID-19 TEST [facility] PCR Today 09/23/2019 11:57 EDT COVID-19 TESTING Routine 09/23/2019 11:5 7 EDT documented in this encounter Results * COVID-19 TEST [facility] PCR (09/23/2019 11:57 EDT) Swab ENTIRE NASOPHARYNX / Unknown 09/23/2019 11:57 EDT 09/23/2019 20:43 EDT us Provider Outr Resulting Lab MICROBIOLOGY - GENER AL ORDERABLES Final Result [facility] [address] [place] [address] * COVID-19 TESTING (09/23/2019 11:57 EDT) COVID-19 rt-PCR Result Negative Negative 09/24/2019 13:49 EDT [facility] Comment: Negative results do not preclude 2019-nCoV infection and should not be used as the sole basis for treatment or other patient management decisions. Negative results must be combined with clinical observations, patient history, and epidemiological information. This test was developed and its performance characteristics determined by [facility]. It has not been cleared or approved by the US Food and Drug Administration. FDA does not require this test to go through premarket FDA review. This test is used for clinical purposes. It should not be regarded as investigational or for research. This laboratory is certified under the Clinical Laboratory Improvement Amendments (CLIA) as qualified to perform high complexity clinical laboratory testing. This test is based on the CDC COVID-19 Emergency Use Authorization (EUA) assay, with minor modification as defined by the FDA Performed on the [employer]. Performing Lab [facility] 09/24/2019 13:49 EDT [facility] Swab ENTIRE NASOPHARYNX / Unknown 09/23/2019 11:57 EDT 09/23/2019 20:43 EDT us Provider Outr Resulting Lab MICROBIOLOGY - GENER AL ORDERABLES Final Result [facility] [address] [place] [address] documented in this encounter Visit Diagnoses Not on filedocumented in this encounter Care Teams Petroleum Refining Firer Relationship Specialty Start Date End Date None, Provider PCP - General 06/23/13 07/22/23 Suyapa Armendariz, HAND PAINTER [address] [place] [address] PCP - General Family Medicine - Primary Care 07/23/23 02/11/24 Nannette Jeffers FNP [address] [place] [phone] PCP - General Family Medicine - Primary Care 02/12/24 documented as of this encounter
--- OUTSIDE RECORDS SUMMARY | 2024-05-14 17:06 | XMS_ITS | Encounter Summary ---
Author Organization [facility] Address [address] [place] [address] Care Team Providers Care Plastic Fabricator Name Role Phone Nannette Jeffers Primary Care Provider [phone] Encounter Details Date Type Department Care Team (Latest Contact Info) Description 02/28/2024 Travel Social History Tobacco Use Types Packs/Day Years [...] 02/28/2024 9:49 EDT documented in this encounter Plan of Treatment Upcoming Encounters Date Type Department Care Team (Late st Contact Info) Description 08/17/2024 11:00 EDT Appointment [facility] [address] [phone] Lab, E&I 08/17/2024 13:00 EDT Office Visit [facility] Urology [address] [place] [address] Gil Bright MD [address] [facility], [address] [place] [phone] documented as of this encounter Visit Diagnoses Not on filedocumented in this encounter Care Teams Plastic Fabricator Relationship Specialty Start Date End Date Nannette Jeffers FNP [address] [facility] [address] [place] [phone] PCP - General Family Medicine - Primary Care 02/12/24 documented as of this encounter
--- OUTSIDE RECORDS SUMMARY | 2024-05-14 17:06 | XMS_ITS | Encounter Summary ---
Author Organization [facility] Address [address] [place] [address] Care Team Providers Care Biological Aide Name Role Phone None, Provider Primary Care Provider Suyapa Lopez NP Primary Care Provider [phone] Nannette JeffersP Primary Care Provider [phone] Encounter Details Date Type Department Care Team (Late st Contact Info) Description 05/25/2020 Lab Requisition [facility] Pathology & Laboratory Medicine - [address] [address] Outr Resulting Lab, Provider Social History Tobacco [...] 08/17/2024 11:00 EDT Appointment [facility] [address] [address] Lab, E&I 08/17/2024 13:00 EDT Office Visit [facility] Urology - [address] [id number] Gil Bright MD [address] [place] [address], [address] [place] [id number] documented as of this encounter Procedures Procedure Name Priority Date/Time Associated Diagnosis Comments ZZCOVID-19 TEST [facility] PCR Today 05/24/2020 13:00 EST COVID-19 TESTING Routine 05/24/2020 13:0 0 EST documented in this encounter Results * COVID-19 TEST [facility] PCR (05/24/2020 13:00 EST) Swab ENTIRE NASOPHARYNX / Unknown 05/24/2020 13:00 EST 05/25/2020 20:28 EST us Provider Outr Resulting Lab MICROBIOLOGY - GENER AL ORDERABLES Final Result Performing Organization Address City/State/[facility] Co de Phone Number [facility] [address] [place] [phone] * COVID-19 TESTING (05/24/2020 13:00 EST) COVID-19 rt-PCR Result Negative Negative 05/26/2020 3:35 EST [facility] Comment: This test has not been FDA cleared or approved. This test has been authorized by FDA under an EUA for use by authorized laboratories. This test has been authorized only for detection of nucleic acid from 2019-nCoV, not for any other viruses or pathogens. This test is only authorized for the duration of the declaration that circumstances exist justifying the authorization of emergency use of in vitro diagnostic tests for detection and/or diagnosis of 2019-nCoV under section 564(b)(1) of Act, 21 U.S.C ?? 360bbb-3(b) (1), unless the authorization is terminated or revoked sooner. Negative results do not preclude 2019-nCoV infection and should not be used as the sole basis for treatment or other patient management decisions. Negative results must be combined with clinical observations, patient history, and epidemiological information. Performed on the mobicanvas Fusion instrument Performing Lab [facility] 05/26/2020 3:35 EST [facility] Swab 05/24/2020 13:0 0 EST 05/25/2020 20:28 EST us Provider Outr Resulting Lab MICROBIOLOGY - GENER AL ORDERABLES Final Result [facility] [address] [place] [address] documented in this encounter Visit Diagnoses Not on filedocumented in this encounter Care Teams Biological Aide Relationship Specialty Start Date End Date None, Provider PCP - General 06/23/13 07/22/23 Suyapa Armendariz, PIPELINE MAINTENANCE SUPERVISOR [address] [place] [address] PCP - General Family Medicine - Primary Care 07/23/23 02/11/24 Nannette Jeffers FNP [address] [place] [phone] PCP - General Family Medicine - Primary Care 02/12/24 documented as of this encounter
--- OUTSIDE RECORDS SUMMARY | 2024-05-14 17:06 | XMS_ITS | Encounter Summary ---
[place] [address] Care Team Providers Care Program Director Cable Television Name Role Phone Svetlana Buckley MD Primary Care Provider [phone] Reason for Visit * Reason Onset Date Comments Appointment 01/27/2020 Surgical Schedul ing Encounter Details Date Type Department Care Team (Late st Contact Info) Description 01/27/2020 [place] [phone] Carlos Andrew MD Appointment (Surgical Scheduling) Social History Tobacco Use Types Packs/Day Years Used Date Smoking Tobacco: Never Assessed Sex and Gender Information Value Date Recorded Sex Assigned at Not on file Gender Identity Not on file Sexual Orientation Not on file documented as of this encounter Miscellaneous Notes * Telephone Encounter - Heidi De Santiago - 01/27/2020 10:23 AM EDT Spoke to patient. He is aware of surgery scheduled for 01/28 in the pharmacy cashier. He stated he has transportation and that he will be here. He asked about follow up appointments after surgery. I let him know that per Dr. Andrew, he will decide what/how the post op appointment will be at a latertime. Patient is in agreement and appreciative of the promptness of the scheduling process. documented in this encounter Plan of Treatment Not on file documented as of this encounter Visit Diagnoses Not on filedocumented in this encounter Care Teams Program Director Cable Television Relationship Specialty Start Date End Date Svetlana Buckley MD [facility] CHILD [facility]VOC[facility] & [place] [address] PCP - General 04/18/10 documented as of this encounter
--- OUTSIDE RECORDS SUMMARY | 2024-05-14 17:07 | XMS_ITS | Encounter Summary ---
Author Organization [facility] Address [facility] [place] [address] Care Team Providers Care Customs Officer Name Role Phone Svetlana Buckley MD Primary Care Provider [phone] Reason for Visit * Reason Comments Retinal Tear * Consultation (Urgent) - Closed Specialty Diagnoses / Procedures Referred By Shasha t Referred To Contact Ophthalmology Diagnoses retinal tear os Guvianeyte, Germaine, OD [address] [place] [address] Carlos Andrew MD [facility] [place] [address] Referral ID Status Reason Start Date Expiration Date V isits Requested Visits Authorized [id number] Closed Consult, Test & Treat 01/26/2020 01/25/2021 1 1 Encounter Details Date Type Department Care Team (Late st Contact Info) Description 01/26/2020 9:00 AM EDT Office Visit [place] [address] Carlos Andrew MD Left retinal detachment Social History Tobacco Use Types Packs/Day Years Used Date Smoking Tobacco: Never Assessed Sex and Gender Information Value Date Recorded Sex Assigned at Not on file Gender Identity Not on file Sexual Orientation Not on file documented as of this encounter Progress Notes * Carlos Andrew MD - 01/26/2020 9:00 AM EDT ASSESSMENT/PLAN: 1. Left retinal detachment Visual Acuity Visual Acuity (Snellen - Linear) Right Left Dist cc 20/20 20/20 -1 Near cc 20/20 20/20 Correction: Contacts 1. Retinal detachment, left eye Dr. Montana, thank you for the kind referral. We agree with your diagnosis of retinal detachment in the left eye. Discussed that if left untreated a retinal detachment will almost certainly lead to permanent vision loss. Discussed the risks, benefits and alternatives of the treatment options including: prophylactic laser photocoagulation vs pneumatic retinopexy vs PPV vs SB vs PPV-SB and agreed to proceed withPPV-SB (due to the presence of VH and PVD), under monitored anesthesia care (MAC) AAO video shown/ASRS fact sheet given A retinal detachment is a very serious condition that almost always leads to blindness if left untreated. The risks of surgery for retinal detachment include need for additional surgery (including but not limited to cataract surgery and/or vitrectomy and/or scleral buckle), recurrent retinal detachment, endophthalmitis, retinal artery occlusion, suprachoroidal hemorrhage, lens dislocation, loss of vision, loss of eye. Moreover, in patients with retinal detachment the vision is frequently permanently affected despite successful surgical repair. Also, most of the patients having surgery for retinal detachment need glasses after the surgery. Also discussed the risks of anesthesia that will be discussed with the anesthesiologist 2. Lattice OD Consider LR in the future Follow up [facility] Sooner PRN I, Lilly Pryor, have performed the documentation for this encounter in the presence of, and acting as a scribe for Carlos Andrew MD. I performed the services which were documented by the scribe, and I agree with the accuracy of the documentation in this encounter. Carlos Andrew MD, PhD Extended Ophthalmoscopy and drawing: Technique: 20D with scleral depression and 78D with the slit lamp Findings: Main Ophthalmology Exam External Exam Right Left External Normal Normal Slit Lamp Exam Right Left Lids/Lashes Normal Normal Conjunctiva/Sclera White and quiet White and quiet Cornea Clear Clear Anterior Chamber Deep and quiet Deep and quiet Iris Round and reactive Round and reactive Lens Clear Clear Fundus Exam Right Left Vitreous PVD PVD, 1+ VH Disc Normal Normal C/D Ratio 0.3 0.3 Macula Normal Normal Vessels Normal Normal Periphery lattice with holes at 10:30 RD 10:00-4:00 , 0.3, PVD, RD 10:00-4:00, Horseshoe tear Plan: See assessment and plan (exam note) documented in this encounter Plan of Treatment Not on file documented as of this encounter Procedures Procedure Name Priority Date/Time Associated Diagnosis Comments OCT RETINA - OU - BOTH EYES Routine 01/26/2020 11:37 AM EDT Left retinal detachment documented in this encounter Results * OCT Retina - OU - Both Eyes (01/26/2020 11:37 AM EDT) Anatomical Region Laterality Modality Other Narrative 01/26/2020 11:37 AM EDT Right Eye Quality was good. Scan locations included subfoveal. Progression has no prior data. Findings include normal observations, normal foveal contour. Left Eye Quality was good. Scan locations included subfoveal. Progression has no prior data. Findings include normal foveal contour, normal observations. Carlos Andrew MD OPHTHALMOLOGY SERVICES ORDERABLES documented in this encounter Visit Diagnoses Diagnosis Left retinal detachment Unspecified retinal detachment documented in this encounter Care Teams Customs Officer Relationship Specialty Start Date End Date Svetlana Buckley MD [facility] CHILD ADVOCACY & [place] [address] PCP - General 04/18/10 documented as of this encounter
--- OUTSIDE RECORDS SUMMARY | 2024-05-14 17:07 | XMS_ITS | Encounter Summary ---
[place] [address] Care Team Providers Care Flight Readiness Technician Name Role Phone Svetlana Buckley MD Primary Care Provider [phone] Encounter Details Date Type Department Care Team (Late st Contact Info) Description 01/27/2020 11:59 PM EDT Anesthesia Event [place] [address] Roberto Arita MD [facility] [place] [address] Roberto Arita MD [facility] [place] [address] Anesthesia Record Procedure Summary Procedure Name Responsible Anesthesiologist Anesthesia Start Time Anesthesia Stop Time REPAIR RETINAL DETACHMENT W/ VITRECTOMY, SCLERAL BUCKLE; AIR,GAS,OIL,LASER,CR YO (WRVU 17.13) (Left: Eye) Events No events on file. Meds * Agents No agents on file. * Blood No blood administrations on file. Lines, Drains, and Airways No LDAs on file. documented in this encounter Social History Tobacco Use Types Packs/Day Years Used Date Smoking Tobacco: Never Assessed Sex and Gender Information Value Date Recorded Sex Assigned at Not on file Gender Identity Not on file Sexual Orientation Not on file documented as of this encounter OR Notes * Anesthesia Preprocedure Evaluation - Roberto Arita - 01/26/2020 4:50 PM EDT Pre-Anesthesia Evaluation for: Troy keys 29 y.o. male. Procedure(s): REPAIR RETINAL DETACHMENT W/ VITRECTOMY, SCLERAL BUCKLE; AIR,GAS,OIL,LASER,CRYO (WRVU 15.19) Patient Active Problem List Diagnosis ??? Left retinal detachment Added automatically from request for surgery [id number] Past Medical History: Diagnosis Date ??? Retinal detachment OS - [facility] ??? Trauma Concussions No past surgical history on file. Social History Tobacco Use ??? Smoking status: Not on file Substance Use Topics ??? Alcohol use: Not on file Social History Substance and Sexual Activity Drug Use Not on file Not on File Medications: MAR and/or home medications have been reviewed. Physical Exam: No data found. There is no height or weight on file to calculate BMI. Anesthesia Physical Exam Anesthesia Plan: ASA 2 29 yo m will undergo retinal repair. No significant Mhx. Will plan on MAC (propofol/dexmetometidine). Roberto Arita PhD, . Anesthesiology CA2 Informed Consent: PAT Clinic Note documented in this encounter Plan of Treatment Not on file documented as of this encounter Visit Diagnoses Not on filedocumented in this encounter Care Teams Flight Readiness Technician Relationship Specialty Start Date End Date Svetlana Buckley MD [facility] CHILD ADVOCAC[facility] [place] [address] PCP - General 04/18/10 documented as of this encounter
== END 2024-05-14 17:03 | disposition home or self-care (01) ==
LOC: NCHCN 17:02
PROVIDERS: PCP Nurse Practitioner Family; Visit Provider Physician Assistant
DX: D22.39 Melanocytic nevi of other parts of face (principal)
CPT/HCPCS: 88305

== ENCOUNTER 2024-09-16 11:57 | Outpatient (REF) | payer BC, SELFPAY ==
[2024-09-16 15:49] LABS: Anion Gap 7.9 mmol/L (3-11); BUN 13 mg/dL (7-18); CO2 30.1 mmol/L (21.0-32.0); CREATININE 0.8 mg/dL (0.70-1.30); Calcium 9.3 mg/dL (8.5-10.1); Chloride 105 mmol/L (98-107); Estimated GFR 119.84 (mL/min/1.73m2); Glucose 95 mg/dL (74-106); Potassium 4.5 mmol/L (3.5-5.1); Sodium 143 mmol/L (136-145)
[2024-09-16 16:16] LABS: Calculated LDL 139 mg/dL (<100); Cholesterol 211 mg/dL (<200); HDL Cholesterol 49 mg/dL (>or=40); Triglyceride 119 mg/dL (<150)
== END 2024-09-16 11:58 | disposition home or self-care (01) ==
LOC: NCHCN 11:57
PROVIDERS: PCP Nurse Practitioner Family; Visit Provider Nurse Practitioner Family
DX: Z00.00 Encounter for general adult medical examination without abnormal findings (principal)
CPT/HCPCS: 80048; 80061